=== PATIENT | female | born 1935 | race Caucasian/White ===

== ENCOUNTER → 2016-04-25 | Outpatient (CLI) | payer MEDICARE ==
--- NOTE | 2016-04-25 09:38 | US ---
EXAMINATION TYPE: US abdomen complete DATE OF EXAM: 04/25/2016 9:22 AM COMPARISON: NONE CLINICAL HISTORY: R19.7 DIARRHEA,R10.84 ABD.PAIN,R74.8 ABN LEVELS OF ENZY. EXAM MEASUREMENTS: Liver Length: 17.1 cm Gallbladder Wall: Surgically absent cm CBD: 0.6 cm Spleen: 9.0 cm Right Kidney: 9.9 x 4.0 x 4.2 cm Left Kidney: 9.6 x 5.4 x 4.6 cm There is no ascites. Pancreas: not well visualized due to midline bowel gas Liver: Increased attenuation, echogenic as compared to kidney. Heterogeneous , coarse echotexture Gallbladder: Surgically absent CBD: wnl Spleen: wnl Right Kidney: No hydronephrosis or masses seen Left Kidney: No hydronephrosis or masses seen Upper IVC: wnl Abd Aorta: wnl IMPRESSION: There may be fatty infiltration of the liver versus hepatocellular disease. Postop change s. Limited exam as described.
== END | disposition home or self-care (01) ==
LOC: RADUSWWP 08:59
PROVIDERS: ATTEND Family Medicine
DX: R10.84 Generalized abdominal pain (principal); R19.7 Diarrhea, unspecified; R74.8 Abnormal levels of other serum enzymes; Z98.890 Other specified postprocedural states
CPT/HCPCS: 76700

== ENCOUNTER → 2018-11-12 | Outpatient (CLI) | payer MEDICARE ==
--- NOTE | 2018-11-13 07:55 | US ---
EXAMINATION TYPE: US carotid duplex BILAT DATE OF EXAM: 11/12/2018 COMPARISON: NONE CLINICAL HISTORY: R01.1 Cardiac murmur; R42 dizziness;R53.83 Fatigue. HTN, dizzy EXAM MEASUREMENTS: RIGHT: Peak Systolic Velocity (PSV) cm/sec ----- Right CCA: 90.4 ----- Right ICA: 99.6 ----- Right ECA: 89.3 ICA/CCA ratio: 1.1 RIGHT: End Diastole cm/sec ----- Right CCA: 16.0 ----- Right ICA: 25.8 ----- Right ECA: 0.0 LEFT: Peak Systolic Velocity (PSV) cm/sec ----- Left CCA: 89.3 ----- Left ICA: 141.8 ----- Left ECA: 68.5 ICA/CCA ratio: 1.6 LEFT: End Diastole cm/sec ----- Left CCA: 15.4 ----- Left ICA: 33.3 ----- Left ECA: 0.0 VERTEBRALS (direction of flow): Right Vertebral: Antegrade Left Vertebral: Antegrade Rhythm: Normal Left elevated distal ICA velocity. No significant stenosis. Plaque seen in bilateral bulbs. Slight bilateral wall thickening. IMPRESSION: 1. Bilateral atherosclerotic plaque with no significant hemodynamic stenosis bilaterally. Criteria for Assigning % of Stenosis / Diameter reduction (Estimation based on the indirect measurements of the internal carotid artery velocities (ICA PSV). 1. Normal (no stenosis)=ICA PSV < 125 cm/s: ratio < 2.0: ICA EDV<40 cm/s. 2. Less than 50% stenosis=ICA PSV < 125 cm/s: ratio < 2.0: ICA EDV<40 cm/s. 3. 50 to 69% stenosis=ICA PSV of 125 to 230 cm/s: ration 2.0 ? 4.0: ICA EDV 40-100 cm/s. 4. Greater than 70% stenosis to near occlusion= ICA PSV > 230 cm/s: ratio > 4.0: ICA EDV > 100 cm/s. 5. Near occlusion= ICA PSV velocities may be low or undetectable: variable ratio and ICA EDV. 6. Total occlusion=unable to detect flow.
--- NOTE | 2018-11-13 13:01 | ECHOF ---
Referral Reason:R01.1 Cardiac murmur; R42 dizziness;R53.83 Fatigue MEASUREMENTS -------- HEIGHT: 157.5 cm WEIGHT: 72.6 kg BP: RVIDd: 2.3 cm (< 3.3) IVSd: 0.8 cm (0.6 - 1.1) LVIDd: 3.3 cm (3.9 - 5.3) LVPWd: 0.9 cm (0.6 - 1.1) IVSs: 1.2 cm LVIDs: 2.0 cm LVPWs: 1.5 cm LAESV Index (A-L): 21.68 ml/m Ao Diam: 2.5 cm (2.0 - 3.7) AV Cusp: 1.0 cm (1.5 - 2.6) LA Diam: 3.0 cm (2.7 - 3.8) MV EXCURSION: 16.312 mm (> 18.000) MV EF SLOPE: 120 mm/s (70 - 150) EPSS: 2.4 cm MV E Sushant: 0.85 m/s MV DecT: 299 ms MV A Sushant: 0.93 m/s MV E/A Ratio: 0.92 AV maxP.04 mmHg AV meanP.81 mmHg RAP: 5.00 mmHg RVSP: 25.06 mmHg TAPSE: 26.38 mm FINDINGS -------- Sinus rhythm. This was a technically good study. The left ventricular size is normal. Left ventricular wall thickness is normal. Overall left vent ricular systolic function is normal with, an EF between 55 - 60 %. The right ventricle is normal in size. The left atrial size is normal. Normal LA size by volume 22+/-6 ml/m2. The right atrial size is normal. Aortic valve is trileaflet and is moderately thickened. There is moderate aortic stenosis present. Peak/mean gradient across the Aortic Valve is 44.04mmHg / 25.81mmHg. The mitral valve is normal. The mitral valve leaflets are mildly thickened. Mild mitral regurgita tion is present. The tricuspid valve appears structurally normal. Mild tricuspid regurgitation present. Right vent ricular systolic pressure is normal at < 35 mmHg. There is no pulmonic regurgitation present. The aortic root size is normal. Normal inferior vena cava with normal inspiratory collapse consistent with estimated right atrial pre ssure of 5 mmHg. All pulmonary veins appear normal. The flow patterns, measured by Doppler, appear normal. There is no pericardial effusion. CONCLUSIONS -------- 1. Sinus rhythm. 2. This was a technically good study. 3. The left ventricular size is normal. 4. Left ventricular wall thickness is normal. 5. Overall left ventricular systolic function is normal with, an EF between 55 - 60 %. 6. The right ventricle is normal in size. 7. The left atrial size is normal. 8. Normal LA size by volume 22+/-6 ml/m2. 9. The right atrial size is normal. 10. Aortic valve is trileaflet and is moderately thickened. 11. There is moderate aortic stenosis present. 12. Peak/mean gradient across the Aortic Valve is 44.04mmHg / 25.81mmHg. 13. The mitral valve is normal. 14. The mitral valve leaflets are mildly thickened. 15. Mild mitral regurgitation is present. 16. The tricuspid valve appears structurally normal. 17. Mild tricuspid regurgitation present. 18. Right ventricular systolic pressure is normal at < 35 mmHg. 19. There is no pulmonic regurgitation present. 20. The aortic root size is normal. 21. Normal inferior vena cava with normal inspiratory collapse consistent with estimated right atrial pressure of 5 mmHg. 22. All pulmonary veins appear normal. 23. The flow patterns, measured by Doppler, appear normal. 24. There is no pericardial effusion. MASTER PRINTER: Enedelia Main [facility]
== END | disposition home or self-care (01) ==
LOC: RADECHMAIN 14:43
PROVIDERS: ATTEND Family Medicine
DX: I65.23 Occlusion and stenosis of bilateral carotid arteries (principal); I08.3 Combined rheumatic disorders of mitral, aortic and tricuspid valves; I10 Essential (primary) hypertension; E78.2 Mixed hyperlipidemia; E11.65 Type 2 diabetes mellitus with hyperglycemia
CPT/HCPCS: 93306; 93880

== ENCOUNTER → 2021-05-05 | Outpatient (CLI) | payer MEDICARE ==
--- NOTE | 2021-05-05 11:31 | XR ---
EXAMINATION TYPE: XR chest 2V DATE OF EXAM: 05/05/2021 COMPARISON: X-ray dated 07/23/2011 HISTORY: 85-year-old female, shortness of breath for 3 months TECHNIQUE: Frontal and lateral views of the chest are obtained. FINDINGS: Hyper translucent lungs with flattened and increased AP dimension of the thoracic cage, suggestive of COPD, please correlate with pulmonary function tests. Grossly unremarkable lungs otherwise. No sizab le pleural effusion or definite pneumothorax. No gross cardiomegaly. Aortic atherosclerotic calcifications. Right upper abdominal surgical clips. D egenerative changes of the lower cervical spine. Exaggerated dorsal kyphosis with osteopenia. Anterio r wedging of T7 vertebral body, possibly chronic, please correlate clinically. IMPRESSION: Suspected COPD changes as described above, please correlate clinically and with pulmonary function te sts. Other incidental findings as described above.
== END | disposition home or self-care (01) ==
LOC: RADXRYALE 11:03
PROVIDERS: ATTEND Physician Assistant
DX: R06.02 Shortness of breath (principal)
CPT/HCPCS: 71046

== ENCOUNTER 2021-06-08 12:53 | Inpatient (IN) | payer MEDICARE ==
[2021-06-08 13:37] LABS: Basophils % (A) 0 %; Eosinophils % (A) 0 %; HCT 31.8 % (34.0-46.0); HGB 10.8 gm/dL (11.4-16.0); Lymphocytes # (A) 0.8 k/uL (1.0-4.8); Lymphocytes % (A) 7 %; MCH 32.9 pg (25.0-35.0); MCHC 34.1 g/dL (31.0-37.0); MCV 96.6 fL (80.0-100.0); Mean Platelet Volume 8.4; Monocytes % (A) 9 %; Neutrophils # (A) 8.9 k/uL (1.3-7.7); Neutrophils % (A) 82 %; Platelet Count 192 k/uL (150-450); RBC 3.29 m/uL (3.80-5.40); RDW 13.6 % (11.5-15.5); WBC 10.9 k/uL (3.8-10.6)
[2021-06-08 13:58] LABS: Calcium 8.8 mg/dL (8.4-10.2)
[2021-06-08 14:16] LABS: Potassium 4.3 mmol/L (3.5-5.1)
[2021-06-08 14:17] LABS: Albumin 3.9 g/dL (3.5-5.0); Total Bilirubin 1.9 mg/dL (0.2-1.3); Total Protein 6.9 g/dL (6.3-8.2)
[2021-06-08] MEDS ORDERED: SODIUM CHLORIDE 0.9% 500 ML 500 ML IV ONE (20:50)
--- NOTE | 2021-06-08 21:09 | XR ---
EXAMINATION TYPE: XR Hip RT and AP Pelvis DATE OF EXAM: 06/08/2021 COMPARISON: 07/24/2011 HISTORY: Fall. Pain TECHNIQUE: 3 views FINDINGS: There is right hip prosthesis. There is fractures of the right superior and inferior pubic rami. There is displacement up to 7 mm. The proximal left femur and hip joint are intact. No obvious sacral fracture. IMPRESSION: Acute right pubic rami displaced fractures.
--- NOTE | 2021-06-08 21:11 | XR ---
EXAMINATION TYPE: XR chest 1V DATE OF EXAM: 06/08/2021 COMPARISON: 05/05/2021 HISTORY: Weakness and fall TECHNIQUE: FINDINGS: Heart is normal. Lungs are clear of infiltrate. No heart failure. There are no hilar masses . Bony thorax is intact. No pneumothorax. IMPRESSION: No active cardiopulmonary disease. No change.
--- NOTE | 2021-06-08 21:25 | CT ---
EXAMINATION TYPE: CT brain frantz wo con DATE OF EXAM: 06/08/2021 COMPARISON: None HISTORY: fall CT DLP: 1312.3 mGycm Automated exposure control for dose reduction was used. Images of the brain and cervical spine obtained without contrast. There is cerebral cortical atrophy. There is no mass effect nor midline shift. There is no sign of in tracranial hemorrhage. The calvarium is intact. Skull base is intact. There is normal aeration of the mastoid sinuses. The cervical vertebra have normal alignment. There is degenerative disc space narrowing at C5-6 and C 6-7 with moderate spur formation. There is also spurring at the 3 4. Hypertrophic multilevel facet ar thropathy. IMPRESSION: Cerebral atrophy. No acute intracranial abnormality. Moderate multilevel cervical spondylotic changes. No fracture seen.
[2021-06-08] MEDS: SODIUM CHLORIDE 0.9% 1,000 ML IV SCH (21:48)
--- NOTE | 2021-06-08 22:09 | ED ---
Fall HPI - General Chief Complaint: Fall Stated Complaint: Fall, Hyperglycemia Time Seen by Provider: 06/08/21 20:33 Source: patient Mode of arrival: ambulatory - History of Present Illness Initial Comments: Patient is a 86-year-old female presenting for evaluation after a fall. Patient states that she fell yesterday at home, was found on the floor at home by her friends this evening. She lives alone. When asked how she fell the patient states that she must have lost her balance as she typically needs to hold onto anything that is close when walking. She denies any use of blood thinners, loss of consciousness, head injury. She denies feelings of chest pain, shortness of breath, lightheadedness prior to falling. Patient seems somewhat confused, her friend at bedside says that this is consistent with her baseline mental status. She denies any chest pain, shortness of breath, lightheadedness, fever, chills, nausea, vomiting, abdominal pain, palpitations, headache, neck pain, vision or hearing changes, dysuria, hematuria. - Related Data Home Medications Medication Instructions Recorded Confirmed Aspirin EC [Ecotrin Low Dose] 81 mg PO DAILY 06/08/21 06/08/21 Atorvastatin Calcium [Lipitor] 80 mg PO DAILY 06/08/21 06/08/21 Calcium Carbonate/Vitamin D3 1 tab PO DAILY 06/08/21 06/08/21 [Calcium 500-Vit D3 15 Mcg (600 Iu)] Cholecalciferol [Vitamin D3 (25 25 mcg PO DAILY 06/08/21 06/08/21 Mcg = 1000 Iu)] DULoxetine HCL [Cymbalta] 30 mg PO DAILY 06/08/21 06/08/21 Diphenoxylate HCl/Atropine 1 tab PO TID PRN 06/08/21 06/08/21 [Lomotil 2.5-0.025 mg Tablet] Fluticasone Nasal [place] [Flonase 1 spray EA NOSTRIL DAILY 06/08/21 06/08/21 Nasal [place]] Levothyroxine Sodium [Synthroid] 50 mcg PO DAILY 06/08/21 06/08/21 Lisinopril-Hctz 20-25 mg 1 tab PO DAILY 06/08/21 06/08/21 [Zestoretic 20-25] Metoprolol Tartrate [Lopressor] 50 mg PO BID 06/08/21 06/08/21 Multivitamins, Thera [Multivitamin 1 tab PO DAILY 06/08/21 06/08/21 (formulary)] [place]-3 Fatty Acids/Fish Oil [Fish 4 cap PO DAILY 06/08/21 06/08/21 Oil 1,000 mg Softgel] Omeprazole Magnesium [PriLOSEC OTC] 20 mg PO DAILY 06/08/21 06/08/21 Pioglitazone [Actos] 45 mg PO DAILY 06/08/21 06/08/21 Raloxifene HCl 60 mg PO DAILY 06/08/21 06/08/21 glipiZIDE [Glucotrol] 10 mg PO BID 06/08/21 06/08/21 Allergies Allergy/AdvReac Type Severity Reaction Status Date / Time No Known Allergies Allergy Verified 06/08/21 21:29 Review of Systems ROS Statement: Those systems with pertinent positive or pertinent negative responses have been documented in the HPI. ROS Other: All systems not noted in ROS Statement are negative. Past Medical History Past Medical History: Diabetes Mellitus, Hypertension History of Any Multi-Drug Resistant Organisms: None Reported Past Surgical History: No Surgical Hx Reported Past Psychological History: No Psychological Hx Reported Smoking Status: Never smoker Past Alcohol Use History: Daily Past Drug Use History: None Reported General Exam Limitations: no limitations General appearance: alert, in no apparent distress Head exam: Present: atraumatic, normocephalic, normal inspection Eye exam: Present: normal appearance, EOMI Neck exam: Present: normal inspection Respiratory exam: Present: normal lung sounds bilaterally. Absent: respiratory distress, wheezes, rales, rhonchi, stridor Cardiovascular Exam: Present: regular rate, normal rhythm, normal heart sounds. Absent: systolic murmur, diastolic murmur, rubs, gallop, clicks GI/Abdominal exam: Present: soft, normal bowel sounds. Absent: distended, tenderness, guarding, rebound, rigid Neurological exam: Present: alert, altered (Consistent with baseline), CN II-XII intact Psychiatric exam: Present: normal affect, normal mood Skin exam: Present: warm, dry, intact, normal color. Absent: rash Course Vital Signs 06/08/21 06/08/21 13:22 21:00 Temperature 97.7 F Pulse Rate 78 70 Respiratory 20 18 Rate Blood Pressure 97/60 108/61 O2 Sat by Pulse 100 98 Oximetry Medical Decision Making - Medical Decision Making Patient is an 86-year-old female presenting for evaluation post fall. Patient stated that she fell yesterday and her friend found her on the floor at home this evening. Patient states that she must of lost her balance causing her to fall as she normally has to hold onto whatever is closed when walking around the house. She lives alone. She denies any chest pain, shortness of breath, lightheadedness, palpitations. On examination patient states that there is pain to the right hip, there is pain with ambulation. There is normal sensation and distal pulses are palpated bilaterally. Skin is warm, range of motion is intact. No focal neurological deficits. Lab work is remarkable for elevated creatinine kinase at 558. Mild leukocytosis of 10.9. Hyponatremia with sodium of 1:30. Hyperglycemic with glucose of 344. CT of the head and cervical spine without contrast shows no acute intracranial process or fracture. Chest x-rays negative. X-ray of the right hip and pelvis shows acute right pubic rami displaced fractures. As patient lives alone and is unable to ambulate safely, she will need to be admitted. I spoke with orthopedist contract technician Dr. Carbajal who stated that these fractures do not require surgical intervention, and he will follow the patient during her admission. Patient is receiving 500 mL normal saline fluid bolus with maintenance rate of 130 mL per hour. I spoke with Dr. Franklin who agreed to admit the patient. I discussed this plan with the patient and family. The conveyed verbal understanding and agreed to the plan. I discussed this case with my attending Dr. Khan. - Lab Data Result diagrams: 06/08/21 13:29 06/08/21 13:29 Lab Results 06/08/21 06/08/21 06/08/21 Range/Units 13:29 13:29 13:29 WBC 10.9 H (3.8-10.6) k/uL RBC 3.29 L (3.80-5.40) m/uL Hgb 10.8 L (11.4-16.0) gm/dL Hct 31.8 L (34.0-46.0) % MCV 96.6 (80.0-100.0) fL MCH 32.9 (25.0-35.0) pg MCHC 34.1 (31.0-37.0) g/dL RDW 13.6 (11.5-15.5) % Plt Count 192 (150-450) k/uL MPV 8.4 Neutrophils % 82 % Lymphocytes % 7 % Monocytes % 9 % Eosinophils % 0 % Basophils % 0 % Neutrophils # 8.9 H (1.3-7.7) k/uL Lymphocytes # 0.8 L (1.0-4.8) k/uL Monocytes # 1.0 (0-1.0) k/uL Eosinophils # 0.0 (0-0.7) k/uL Basophils # 0.0 (0-0.2) k/uL Sodium 130 L (137-145) mmol/L Potassium 4.3 (3.5-5.1) mmol/L Chloride 96 L (98-107) mmol/L Carbon Dioxide 24 (22-30) mmol/L Anion Gap 10 mmol/L BUN 25 H (7-17) mg/dL Creatinine 0.73 (0.52-1.04) mg/dL Est GFR (CKD-EPI)AfAm 88 (>60 ml/min/1.73 sqM) Est GFR (CKD-EPI)NonAf 76 (>60 ml/min/1.73 sqM) Glucose 344 H (74-99) mg/dL Plasma Lactic Acid Ziyad (0.7-2.0) mmol/L Calcium 8.8 (8.4-10.2) mg/dL Total Bilirubin 1.9 H (0.2-1.3) mg/dL AST 75 H (14-36) U/L ALT 37 H (4-34) U/L Alkaline Phosphatase 70 (38-126) U/L Creatine Kinase (30-135) U/L Troponin I 0.032 (0.000-0.034) ng/mL Total Protein 6.9 (6.3-8.2) g/dL Albumin 3.9 (3.5-5.0) g/dL 06/08/21 06/08/21 Range/Units 13:29 21:33 WBC (3.8-10.6) k/uL RBC (3.80-5.40) m/uL Hgb (11.4-16.0) gm/dL Hct (34.0-46.0) % MCV (80.0-100.0) fL MCH (25.0-35.0) pg MCHC (31.0-37.0) g/dL RDW (11.5-15.5) % Plt Count (150-450) k/uL MPV Neutrophils % % Lymphocytes % % Monocytes % % Eosinophils % % Basophils % % Neutrophils # (1.3-7.7) k/uL Lymphocytes # (1.0-4.8) k/uL Monocytes # (0-1.0) k/uL Eosinophils # (0-0.7) k/uL Basophils # (0-0.2) k/uL Sodium (137-145) mmol/L Potassium (3.5-5.1) mmol/L Chloride (98-107) mmol/L Carbon Dioxide (22-30) mmol/L Anion Gap mmol/L BUN (7-17) mg/dL Creatinine (0.52-1.04) mg/dL Est GFR (CKD-EPI)AfAm (>60 ml/min/1.73 sqM) Est GFR (CKD-EPI)NonAf (>60 ml/min/1.73 sqM) Glucose (74-99) mg/dL Plasma Lactic Acid Ziyad 1.8 (0.7-2.0) mmol/L Calcium (8.4-10.2) mg/dL Total Bilirubin (0.2-1.3) mg/dL AST (14-36) U/L ALT (4-34) U/L Alkaline Phosphatase (38-126) U/L Creatine Kinase 558 H (30-135) U/L Troponin I (0.000-0.034) ng/mL Total Protein (6.3-8.2) g/dL Albumin (3.5-5.0) g/dL - EKG Data EKG Comments: EKG shows sinus rhythm with occasional supraventricular premature complexes. Rate of 72. HI interval 196. QRS duration 86. No acute ST or T-wave changes. Disposition Clinical Impression: Pubic ramus fracture Disposition: ADMITTED IP TO THIS HOSP Condition: Fair Is patient prescribed a controlled substance at d/c from ED?: No Time of Disposition: 23:00 Decision to Admit Reason: Admit from EC Decision Date: 06/08/21 Decision Time: 23:00
[2021-06-08] MEDS ORDERED: IBUPROFEN 400 MG TAB PO PRN (22:14)
[2021-06-08] MEDS ORDERED: NALOXONE 0.4 MG/ML 1 ML VIAL IV PRN (22:14)
--- NOTE | 2021-06-09 01:07 | P.HPIM ---
History of Present Illness H&P Date: 06/09/21 The patient is an 86-year-old female with a PMH of type II DM, hypertension, and hyperlipidemia who presents to the emergency room after a fall. The patient lives by herself reports that on the evening of 06/07, she was emptying her trekking guide when she tripped on something and fell, striking her right hip on the ground. She immediately had severe pain at the site of trauma, and was unable to stand up. She crawled her way to a chair in her living room and sat by it until the following morning when a friend visiting her for her birthday found her on the ground. The patient reports that she was unable to sleep throughout the night. She reports ongoing right hip pain with movement, with no pain at rest. Denied suffering head or any additional trauma. Further denied chest discomfort, shortness of breath, nausea, vomiting, fever, chills, cough, abdominal pain, diarrhea, productive. Denied losing consciousness. CT brain and cervical spine was unremarkable. Chest x-ray was also unremarkable. Hip x- rays revealed acute right pubic rami displaced fractures. The case was reportedly discussed by the ED provider with orthopedics on-call who noted that the patient will be nonsurgical due to the nature of her fractures, and will be managed medically. Laboratory evaluation revealed WBC count of 10.9, hemoglobin 10.8, sodium 130, chloride 96, BUN 25, glucose 344, lactic acid 1.8, AST 75, ALT 37, CK 558, and troponin I 0.032. Review of systems: Pertinent positives and negatives as discussed in HPI, a complete review of systems was performed and all other systems are negative. Physical examination: General: non toxic, no distress, appears at stated age, obese Derm: no unusual rashes/lesions no unusual ecchymoses, warm, dry Head: atraumatic, normocephalic, symmetric Eyes: EOMI, no lid lag, anicteric sclera, pupils equal round reactive to light ENT: Nose and ears atraumatic, no thrush, no pharyngeal erythema Neck: No thyromegaly, no cervical lymphadenopathy, trachea midline, supple Mouth: no lip lesion, mucus membranes moist Cardiovascular: S1S2 reg, no murmur, positive posterior tibial pulse bilateral, no edema, capillary refill less than 2 seconds Lungs: CTA bilateral, no rhonchi, no rales , no accessory muscle use Abdominal: soft, nontender to palpation, no guarding, no appreciable organomegaly, normal bowel sounds Ext: no gross muscle atrophy, muscle strength 5 out of 5 in all extremities grossly except right lower extremity due to right hip pain, right hip passive range of motion limited also due to pain, no contractures, Neuro: CN II-XI grossly intact, light touch intact all 4 extremities, finger to nose within normal limits Psych: Alert, oriented, appropriate affect Assessment/plan Acute displaced pubic rami fractures -Pain control -Orthopedic consults -Strict bedrest -PT consult Leukocytosis, likely secondary to acute stressor -No signs of active infection at this time -Monitor for now Hyponatremia, likely secondary to ongoing pain -Gentle IV fluids -Monitor for now Elevated creatinine kinase -IVFs -Likely due to fall and dehydration -Monitor for now Chronic conditions: Type II DM, hypertension, hyperlipidemia -Continue with home meds -Insulin sliding scale and blood glucose monitoring -Check A1c DVT prophylaxis -Heparin subq The patient is admitted with an anticipated greater than 2 midnight stay for evaluation of hip fractures CODE STATUS: Full Code Discussed with: Patient Anticipated discharge date: 2-[address]: Home Past Medical History Past Medical History: Diabetes Mellitus, Hypertension History of Any Multi-Drug Resistant Organisms: None Reported Past Surgical History: No Surgical Hx Reported Past Psychological History: No Psychological Hx Reported Smoking Status: Never smoker Past Alcohol Use History: Daily Past Drug Use History: None Reported Medications and Allergies Home Medications Medication Instructions Recorded Confirmed Type Aspirin EC [Ecotrin Low Dose] 81 mg PO DAILY 06/08/21 06/08/21 History Atorvastatin Calcium [Lipitor] 80 mg PO DAILY 06/08/21 06/08/21 History Calcium Carbonate/Vitamin D3 1 tab PO DAILY 06/08/21 06/08/21 History [Calcium 500-Vit D3 15 Mcg (600 Iu)] Cholecalciferol [Vitamin D3 (25 25 mcg PO DAILY 06/08/21 06/08/21 History Mcg = 1000 Iu)] DULoxetine HCL [Cymbalta] 30 mg PO DAILY 06/08/21 06/08/21 History Diphenoxylate HCl/Atropine 1 tab PO TID PRN 06/08/21 06/08/21 History [Lomotil 2.5-0.025 mg Tablet] Fluticasone Nasal [place] [Flonase 1 spray EA NOSTRIL DAILY 06/08/21 06/08/21 History Nasal [place]] Levothyroxine Sodium [Synthroid] 50 mcg PO DAILY 06/08/21 06/08/21 History Lisinopril-Hctz 20-25 mg 1 tab PO DAILY 06/08/21 06/08/21 History [Zestoretic 20-25] Metoprolol Tartrate [Lopressor] 50 mg PO BID 06/08/21 06/08/21 History Multivitamins, Thera [Multivitamin 1 tab PO DAILY 06/08/21 06/08/21 History (formulary)] [place]-3 Fatty Acids/Fish Oil [Fish 4 cap PO DAILY 06/08/21 06/08/21 History Oil 1,000 mg Softgel] Omeprazole Magnesium [PriLOSEC OTC] 20 mg PO DAILY 06/08/21 06/08/21 History Pioglitazone [Actos] 45 mg PO DAILY 06/08/21 06/08/21 History Raloxifene HCl 60 mg PO DAILY 06/08/21 06/08/21 History glipiZIDE [Glucotrol] 10 mg PO BID 06/08/21 06/08/21 History Allergies Allergy/AdvReac Type Severity Reaction Status Date / Time No Known Allergies Allergy Verified 06/08/21 21:29 Physical Exam Vitals: Vital Signs Temp Pulse Resp BP Pulse Ox 06/08/21 21:00 70 18 108/61 98 06/08/21 13:22 97.7 F 78 20 97/60 100 Intake and Output 06/08/21 06/08/21 06/09/21 14:59 22:59 06:59 Other: Weight 154 kg Results CBC & Chem 7: 06/08/21 13:29 06/08/21 13:29 Labs: Abnormal Lab Results - Last 24 Hours (Table) 06/08/21 06/08/21 06/08/21 Range/Units 13:29 13:29 13:29 WBC 10.9 H (3.8-10.6) k/uL RBC 3.29 L (3.80-5.40) m/uL Hgb 10.8 L (11.4-16.0) gm/dL Hct 31.8 L (34.0-46.0) % Neutrophils # 8.9 H (1.3-7.7) k/uL Lymphocytes # 0.8 L (1.0-4.8) k/uL Sodium 130 L (137-145) mmol/L Chloride 96 L (98-107) mmol/L BUN 25 H (7-17) mg/dL Glucose 344 H (74-99) mg/dL Total Bilirubin 1.9 H (0.2-1.3) mg/dL AST 75 H (14-36) U/L ALT 37 H (4-34) U/L Creatine Kinase 558 H (30-135) U/L
[2021-06-09 06:30] LABS: Glucose,Whole Blood 235 mg/dL (75-99)
[2021-06-09 08:18] LABS: Appearance,Urine Cloudy (Clear); Bacteria,Urine Many /hpf; Bilirubin,Urine Negative (Negative); Blood,Urine Moderate (Negative); Color,Urine Yellow; Glucose,Urine (UA) Negative (Negative); Ketones,Urine Negative (Negative); Leukocyte Esterase,Urine Large (Negative); Mucus,Urine Rare /hpf; Nitrite,Urine Negative (Negative); PH, Urine 5.5 (5.0-8.0); Protein,Urine 1+ (Negative); RBC,Urine 16 /hpf (0-5); Specific Gravity,Urine 1.014 (1.001-1.035); Squamous Epithelial Cell,Urine 1 /hpf (0-4); Urobilinogen,Urine <2.0 mg/dL (<2.0); WBC,Urine 163 /hpf (0-5)
[2021-06-09 08:30] LABS: Glucose,Whole Blood 234 mg/dL (75-99)
[2021-06-09] MEDS: ACETAMINOPHEN TAB 325 MG TAB PO PRN (08:43)
[2021-06-09] MEDS: METOPROLOL TARTRATE 50 MG TAB PO SCH (08:43)
[2021-06-09] MEDS: MULTIVITAMINS, THERA 1 EACH TAB PO SCH (08:43)
[2021-06-09] MEDS: PANTOPRAZOLE 40 MG TABLET PO SCH (08:43)
[2021-06-09] MEDS: HEPARIN SODIUM,PORCINE/PF 5,000 UNIT/0.5 ML SYRINGE SQ SCH ×2 (08:44→16:35)
[2021-06-09] MEDS: LEVOTHYROXINE 50 MCG TAB PO SCH (08:44)
[2021-06-09] MEDS: INSULIN ASPART (NovoLOG) 100 UNIT/ML VIAL SQ SCH ×3 (08:44→17:14)
[2021-06-09] MEDS: ASPIRIN 81 MG PO SCH (08:44)
[2021-06-09] MEDS: ATORVASTATIN 80 MG TAB PO SCH (08:44)
[2021-06-09] MEDS: SODIUM CHLORIDE 0.9% 1,000 ML IV SCH ×2 (08:45→12:25)
[2021-06-09 08:51] LABS: Basophils % (A) 0 %; Eosinophils % (A) 0 %; HCT 32.3 % (34.0-46.0); HGB 10.8 gm/dL (11.4-16.0); Lymphocytes # (A) 1.8 k/uL (1.0-4.8); Lymphocytes % (A) 15 %; MCHC 33.6 g/dL (31.0-37.0); MCV 98.3 fL (80.0-100.0); Mean Platelet Volume 7.7; Monocytes # (A) 0.9 k/uL (0-1.0); Monocytes % (A) 7 %; Neutrophils # (A) 9.2 k/uL (1.3-7.7); Neutrophils % (A) 75 %; Platelet Count 225 k/uL (150-450); RBC 3.28 m/uL (3.80-5.40); RDW 13.2 % (11.5-15.5); WBC 12.2 k/uL (3.8-10.6)
[2021-06-09 09:03] LABS: Albumin 3.7 g/dL (3.5-5.0); Calcium 9.1 mg/dL (8.4-10.2); Potassium 3.9 mmol/L (3.5-5.1); Total Bilirubin 1.2 mg/dL (0.2-1.3); Total Protein 6.4 g/dL (6.3-8.2)
[2021-06-09] MEDS: RALOXIFENE 60 MG TAB PO SCH (10:12)
[2021-06-09] MEDS: DULoxetine HCL 30 MG CAPSULE.DR PO SCH (10:12)
[2021-06-09] MEDS: LISINOPRIL-HCTZ 20-25 MG 1 EACH TAB PO SCH (10:12)
[2021-06-09 11:38] LABS: Glucose,Whole Blood 251 mg/dL (75-99)
--- NOTE | 2021-06-09 13:02 | P.CNOR ---
History of Present Illness - [facility] Consult date: 06/09/21 Requesting physician: Boyd Rae Consult reason: fracture (Right superior and inferior displaced pubic rami fr actures status post fall) History of present illness: Patient is a very pleasant 86-year-old female who is seen and examined at the bedside for further evaluation of her pelvis. She sustained a fall on 06/07/2021 in her home. She was unable to ambulate following her fall. She sat in her house on the floor beside the couch until a friend came to see her on her birthday yesterday, 06/08/2019. She was brought to the emergency room for further evaluation. She was found to have right superior and inferior displaced pubic rami fractures. Since her admission to the hospital she states her pain is controlled well at rest. Her pain is significantly exacerbated with trying to weight-bear on the right lower extremity. She denies any other injuries at the time of the fall. X-ray imaging showed evidence of her pubic rami fractures. CT of the brain and cervical spine was performed which does show significant degenerative changes at her cervical spine. She is not currently complaining of any cervical pain. Patient is currently receiving motion or Tyl enol for pain control. It has been discussed with the patient about possible discharged to a rehabilitation facility time of discharge. Patient is willing to go to a rehabilitation facility at discharge. She continues to be seeing them by medicine for her multiple other medical diagnoses including leukocytosis, hyponatremia, elevated creatinine kinase, type 2 diabetes, hypertension, and hyperlipidemia. She has evidence of a right hip hemiarthroplasty and history of surgical intervention in her left knee. Past Medical History Past Medical History: Diabetes Mellitus, Hypertension, Thyroid Disorder Additional Past Medical History / Comment(s): POOR HISTORIAN History of Any Multi-Drug Resistant Organisms: None Reported Past Surgical History: Cholecystectomy, Orthopedic Surgery Additional Past Surgical History / Comment(s): POOR HISTORIAN Past Anesthesia/Blood Transfusion Reactions: No Reported Reaction Past Psychological History: No Psychological Hx Reported Smoking Status: Never smoker Past Alcohol Use History: Daily Past Drug Use History: None Reported Medications and Allergies Home Medications Medication Instructions Recorded Confirmed Type Aspirin EC [Ecotrin Low Dose] 81 mg PO DAILY 06/08/21 06/08/21 History Atorvastatin Calcium [Lipitor] 80 mg PO DAILY 06/08/21 06/08/21 History Calcium Carbonate/Vitamin D3 1 tab PO DAILY 06/08/21 06/08/21 History [Calcium 500-Vit D3 15 Mcg (600 Iu)] Cholecalciferol [Vitamin D3 (25 25 mcg PO DAILY 06/08/21 06/08/21 History Mcg = 1000 Iu)] DULoxetine HCL [Cymbalta] 30 mg PO DAILY 06/08/21 06/08/21 History Diphenoxylate HCl/Atropine 1 tab PO TID PRN 06/08/21 06/08/21 History [Lomotil 2.5-0.025 mg Tablet] Fluticasone Nasal Delta [Flonase 1 spray EA NOSTRIL DAILY 06/08/21 06/08/21 History Nasal Delta] Levothyroxine Sodium [Synthroid] 50 mcg PO DAILY 06/08/21 06/08/21 History Lisinopril-Hctz 20-25 mg 1 tab PO DAILY 06/08/21 06/08/21 History [Zestoretic 20-25] Metoprolol Tartrate [Lopressor] 50 mg PO BID 06/08/21 06/08/21 History Multivitamins, Thera [Multivitamin 1 tab PO DAILY 06/08/21 06/08/21 History (formulary)] [place]-3 Fatty Acids/Fish Oil [Fish 4 cap PO DAILY 06/08/21 06/08/21 History Oil 1,000 mg Softgel] Omeprazole Magnesium [PriLOSEC OTC] 20 mg PO DAILY 06/08/21 06/08/21 History Pioglitazone [Actos] 45 mg PO DAILY 06/08/21 06/08/21 History Raloxifene HCl 60 mg PO DAILY 06/08/21 06/08/21 History glipiZIDE [Glucotrol] 10 mg PO BID 06/08/21 06/08/21 History Allergies Allergy/AdvReac Type Severity Reaction Status Date / Time No Known Allergies Allergy Verified 06/08/21 21:29 Physical Examination Physical exam: Patient is awake, alert, and oriented 3 Vital signs stable Adequate chest excursion with deep inspiration and expiration Dorsiflexion, plantarflexion, and extensor hallucis longus positive sustained bilaterally Lower extremity strength 5/5 bilaterally Patellar reflex 1+ bilaterally and Achilles reflexes 0+ bilaterally Evidence of significant bruising towards her right hip and buttock Evidence of a well-healed incision over the left knee No lower extremity hyperreflexia bilaterally Patient has difficulty lifting her legs off the bed independently bilaterally No signs or symptoms of DVT; no calf pain No pain with internal and external rotation of the hips bilaterally Some increased pain with pelvic rocking Results Pertinent studies: X-ray of the right hip and pelvis taken on 06/08/2021: Evidence of acute right pubic superior and inferior pubic rami displaced fracture; evidence of a right hip hemiarthroplasty which appears in good alignment and position CT of the cervical spine and brain taken on 06/08/2021: C5-6 and C6-7 significant degenerative disc disease; multilevel cervical spondylosis; no marek dence of cervical compression fracture Cerebral atrophy; no acute intracranial abnormality - Labs Labs: Abnormal Lab Results - Last 24 Hours (Table) 06/08/21 06/08/21 06/08/21 Range/Units 13:29 13:29 13:29 WBC 10.9 H (3.8-10.6) k/uL RBC 3.29 L (3.80-5.40) m/uL Hgb 10.8 L (11.4-16.0) gm/dL Hct 31.8 L (34.0-46.0) % Neutrophils # 8.9 H (1.3-7.7) k/uL Lymphocytes # 0.8 L (1.0-4.8) k/uL Sodium 130 L (137-145) mmol/L Chloride 96 L (98-107) mmol/L BUN 25 H (7-17) mg/dL Glucose 344 H (74-99) mg/dL POC Glucose (mg/dL) (75-99) mg/dL Total Bilirubin 1.9 H (0.2-1.3) mg/dL AST 75 H (14-36) U/L ALT 37 H (4-34) U/L Creatine Kinase 558 H (30-135) U/L Urine Appearance (Clear) Urine Protein (Negative) Urine Blood (Negative) Ur Leukocyte Esterase (Negative) Urine RBC (0-5) /hpf Urine WBC (0-5) /hpf Urine Bacteria (None) /hpf Urine Mucus (None) /hpf 06/09/21 06/09/21 06/09/21 Range/Units 06:29 07:43 07:43 WBC 12.2 H (3.8-10.6) k/uL RBC 3.28 L (3.80-5.40) m/uL Hgb 10.8 L (11.4-16.0) gm/dL Hct 32.3 L (34.0-46.0) % Neutrophils # 9.2 H (1.3-7.7) k/uL Lymphocytes # (1.0-4.8) k/uL Sodium 132 L (137-145) mmol/L Chloride (98-107) mmol/L BUN 25 H (7-17) mg/dL Glucose 238 H (74-99) mg/dL POC Glucose (mg/dL) 235 H (75-99) mg/dL Total Bilirubin (0.2-1.3) mg/dL AST 57 H (14-36) U/L ALT 35 H (4-34) U/L Creatine Kinase (30-135) U/L Urine Appearance (Clear) Urine Protein (Negative) Urine Blood (Negative) Ur Leukocyte Esterase (Negative) Urine RBC (0-5) /hpf Urine WBC (0-5) /hpf Urine Bacteria (None) /hpf Urine Mucus (None) /hpf 06/09/21 06/09/21 06/09/21 Range/Units 07:43 08:00 08:29 WBC (3.8-10.6) k/uL RBC (3.80-5.40) m/uL Hgb (11.4-16.0) gm/dL Hct (34.0-46.0) % Neutrophils # (1.3-7.7) k/uL Lymphocytes # (1.0-4.8) k/uL Sodium (137-145) mmol/L Chloride (98-107) mmol/L BUN (7-17) mg/dL Glucose (74-99) mg/dL POC Glucose (mg/dL) 234 H (75-99) mg/dL Total Bilirubin (0.2-1.3) mg/dL AST (14-36) U/L ALT (4-34) U/L Creatine Kinase 547 H (30-135) U/L Urine Appearance Cloudy H (Clear) Urine Protein 1+ H (Negative) Urine Blood Moderate H (Negative) Ur Leukocyte Esterase Large H (Negative) Urine RBC 16 H (0-5) /hpf Urine WBC 163 H (0-5) /hpf Urine Bacteria Many H (None) /hpf Urine Mucus Rare H (None) /hpf 06/09/21 Range/Units 11:36 WBC (3.8-10.6) k/uL RBC (3.80-5.40) m/uL Hgb (11.4-16.0) gm/dL Hct (34.0-46.0) % Neutrophils # (1.3-7.7) k/uL Lymphocytes # (1.0-4.8) k/uL Sodium (137-145) mmol/L Chloride (98-107) mmol/L BUN (7-17) mg/dL Glucose (74-99) mg/dL POC Glucose (mg/dL) 251 H (75-99) mg/dL Total Bilirubin (0.2-1.3) mg/dL AST (14-36) U/L ALT (4-34) U/L Creatine Kinase (30-135) U/L Urine Appearance (Clear) Urine Protein (Negative) Urine Blood (Negative) Ur Leukocyte Esterase (Negative) Urine RBC (0-5) /hpf Urine WBC (0-5) /hpf Urine Bacteria (None) /hpf Urine Mucus (None) /hpf H & H 06/08/21 06/09/21 Range/Units 13:29 07:43 Hgb 10.8 L 10.8 L (11.4-16.0) gm/dL Hct 31.8 L 32.3 L (34.0-46.0) % Result Diagrams: 06/09/21 07:43 06/09/21 07:43 Assessment and Plan Assessment: Assessment: Acute traumatic right superior and inferior displaced pubic rami fractures Acute pelvic pain Status post fall Inability to ambulate on the right lower extremity due to pain and right pubic rami fractures History of right hip hemiarthroplasty History surgical intervention left knee Leukocytosis Hyponatremia Elevated creatinine kinase Type 2 diabetes Hypertension Hyperlipidemia Obesity (1) Fracture of superior ramus of right pubis Current Visit: Yes Status: Acute Code(s): S32.511A - FRACTURE OF SUPERIOR RIM OF RIGHT PUBIS, INIT FOR CLOS FX SNOMED Code(s): 925813163 (2) Fracture of right inferior pubic ramus Current Visit: Yes Status: Acute Code(s): S32.591A - OTH FRACTURE OF RIGHT PUBIS, INIT ENCNTR FOR CLOSED FRACTURE SNOMED Code(s): 465217465 (3) Status post fall Current Visit: Yes Status: Acute Code(s): Z91.81 - HISTORY OF FALLING SNOMED Code(s): 398373610 (4) Pelvic pain Current Visit: Yes Status: Acute Code(s): R10.2 - PELVIC AND PERINEAL PAIN SNOMED Code(s): 71974557 (5) History of right hip hemiarthroplasty Current Visit: Yes Status: Acute Code(s): Z96.641 - PRESENCE OF RIGHT ARTIFICIAL HIP JOINT SNOMED Code(s): 120273839 (6) Leukocytosis Current Visit: Yes Status: Acute Code(s): D72.829 - ELEVATED WHITE BLOOD CELL COUNT, UNSPECIFIED SNOMED Code(s): 018074742 (7) Hyponatremia Current Visit: Yes Status: Acute Code(s): E87.1 - HYPO-OSMOLALITY AND HYPONATREMIA SNOMED Code(s): 62414289 (8) Elevated creatine kinase Current Visit: Yes Status: Acute Code(s): R74.8 - ABNORMAL LEVELS OF OTHER SERUM ENZYMES SNOMED Code(s): 308393757 (9) Type 2 diabetes mellitus Current Visit: Yes Status: Acute Code(s): E11.9 - TYPE 2 DIABETES MELLITUS WITHOUT COMPLICATIONS SNOMED Code(s): 29298306 (10) Hypertension Current Visit: Yes Status: Acute Code(s): I10 - ESSENTIAL (PRIMARY) HYPERTENSION SNOMED Code(s): 17420898 (11) Hyperlipidemia Current Visit: Yes Status: Acute Code(s): E78.5 - HYPERLIPIDEMIA, UNSPECIFIED SNOMED Code(s): 07081111 (12) Obesity Current Visit: Yes Status: Acute Code(s): E66.9 - OBESITY, UNSPECIFIED SNOMED Code(s): 847501024 Plan: Plan: 1. Patient has been discussed in detail with Dr. Reynaldo Hair and we have reviewed her imaging. After physical examination of the patient, reviewing i maging, and further discussion with the patient, we will currently planned to have the patient work to conservative treatment options. She does have evidence of right superior and inferior pubic rami fractures with displacement status post fall. She has had difficulty with mobilization and ambulation right lower extremity due to her pain and fractures. Her pain has been controlled while resting in bed. We did discuss at this time we would not plan for acute surgical intervention and are not currently planning for any surgery in the outpatient setting in regards to her right pubic rami fractures. We did discuss the fractures could heal with conservative treatment and time. We did discuss she will be toe-touch weightbearing on the right lower extremity. She may utilize a walker to aid in ambulation as needed. She should avoid excessive activities with the right lower extremity. Currently her pain has been adequately controlled with Motrin and Tylenol. She may continue his medications as prescribed as needed for pain control. We did discuss she could benefit from discharge to rehabilitation facility at the time of discharge was cleared by medicine. Patient does feel this is a good plan of care. At this time, patient will be cleared for discharge from an orthopedic standpoint. Patient may follow-up with Adolfo Juarez PA-C or Dr. Reynaldo Hair at [facility] in 2-3 weeks following discharge. 2. Patient will continue be seen and examined by medicine for her multiple other medical diagnose Time with Patient: Greater than 30 (Including obtaining history, physical examination, reviewing of imaging, and dictation.)
--- NOTE | 2021-06-09 16:18 | P.PN ---
Subjective Progress Note Date: 06/09/21 Hospital course: Patient is a very pleasant 86-year-old female with a past medical history of hypertension, hyperlipidemia, hypothyroidism, and sen-ysshykt-[id number] diabetes mellitus type 2. She presented to the emergency department status post fall. 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 Patient reports severe pain upon impact and inability to get herself off of the floor. Patient reports she remained on the floor overnight until her friend came by to celebrate her birthday with her following morning. In the emergency department patient underwent full evaluation. CT head and cervical spine completed negative for acute process. Chest x-ray unremarkable. X-ray right hip revealed acute fractures of the right superior and inferior pubic rami with displacement up to 7 mm. Patient was admitted under our services with consultation to orthopedic surgery. Physical exam: Patient seen and fully evaluated at the bedside this morning. Patient reports continued pain to right hip, but states it is controlled as long as she does not move. Patient also noted to have a UTI and started on IV antibiotics Rocephin. She denies having any headache, lightheadedness, dizziness, chest pain, palpitations, shortness of breath, or experiencing any numbness/tingling/weakness in her extremities. Movement and sensitivity remain intact to right lower extremity. Awaiting orthopedic surgery to evaluate and further recommendations. Vital signs reviewed and stable. General: Nontoxic, no distress and appears stated age. Derm: Skin warm and dry, normal coloration for ethnicity. Moderate bruising right lateral thigh and hip Head: Atraumatic, normocephalic and symmetric. Eyes: EOMs intact, no lid lag, and anicteric sclera Mouth: no lip lesions, mucus membranes moist Cardiovascular: regular rate and rhythm with normal S1S2, no murmur, positive posterior tibial pulses bilaterally, and cap refill < 2 seconds. Lungs: Respirations even, regular, and unlabored on room air. Lungs CTA bilaterally, no rhonchi, no rales, no wheezing, and no accessory muscle usage. Abdominal: soft, nontender to palpation, no guarding, no appreciable organomegaly Ext: ROM intact. No gross muscle atrophy, no edema, no contractures Neuro: Speech clear, face symmetrical and CN II-XII grossly intact with no noted focal neuro deficits Psych: Alert and oriented to person, place, time, and situation. Appropriate and pleasant affect. Assessment and Plan of Care: Acute displaced superior and inferior pubic rami fractures -Symptomatic care and Pain control -Orthopedic consults -Strict bedrest pending further evaluation by orthopedic surgery -PT consult UTI with leukocytosis -Rocephin -Follow up on urine culture -Monitor I's and O's -Bladder management Hyponatremia, likely secondary to ongoing pain -Gentle IV fluids -Monitor for now Elevated creatinine kinase -IVFs -Likely due to fall with prolonged down time and dehydration -Monitor for now Chronic conditions: Type II DM, hypertension, hyperlipidemia -Continue with home meds -Insulin sliding scale and blood glucose monitoring -Check A1c CODE STATUS: Full Code DVT prophylaxis: Heparin Discussed with: Patient and RN Anticipated discharge date: Clinical course to determine Anticipated discharge place: Home vs SNF as this patient lives alone A total of 38 minutes was spent on the care of this complex patient more than 50% of the time was spent in counseling and care coordination. I reviewed the documentation as provided by the REMIGIO above, who is the original author of this note. I agree with the documented assessment and plan, with the following changes: None Objective - Vital Signs Vital signs: Vital Signs Temp 98.1 F 06/09/21 06:07 Pulse 101 H 06/09/21 06:07 Resp 18 06/09/21 06:07 BP 142/57 06/09/21 06:07 Pulse Ox 100 06/09/21 06:07 Intake & Output 06/08/21 06/09/21 06/09/21 18:59 06:59 18:59 Weight 154 kg - Labs CBC & Chem 7: 06/09/21 07:43 06/09/21 07:43 Labs: Abnormal Lab Results - Last 24 Hours (Table) 06/08/21 06/08/21 06/08/21 Range/Units 13:29 13:29 13:29 WBC 10.9 H (3.8-10.6) k/uL RBC 3.29 L (3.80-5.40) m/uL Hgb 10.8 L (11.4-16.0) gm/dL Hct 31.8 L (34.0-46.0) % Neutrophils # 8.9 H (1.3-7.7) k/uL Lymphocytes # 0.8 L (1.0-4.8) k/uL Sodium 130 L (137-145) mmol/L Chloride 96 L (98-107) mmol/L BUN 25 H (7-17) mg/dL Glucose 344 H (74-99) mg/dL POC Glucose (mg/dL) (75-99) mg/dL Total Bilirubin 1.9 H (0.2-1.3) mg/dL AST 75 H (14-36) U/L ALT 37 H (4-34) U/L Creatine Kinase 558 H (30-135) U/L Urine Appearance (Clear) Urine Protein (Negative) Urine Blood (Negative) Ur Leukocyte Esterase (Negative) Urine RBC (0-5) /hpf Urine WBC (0-5) /hpf Urine Bacteria (None) /hpf Urine Mucus (None) /hpf 06/09/21 06/09/21 06/09/21 Range/Units 06:29 07:43 08:00 WBC 12.2 H (3.8-10.6) k/uL RBC 3.28 L (3.80-5.40) m/uL Hgb 10.8 L (11.4-16.0) gm/dL Hct 32.3 L (34.0-46.0) % Neutrophils # 9.2 H (1.3-7.7) k/uL Lymphocytes # (1.0-4.8) k/uL Sodium (137-145) mmol/L Chloride (98-107) mmol/L BUN (7-17) mg/dL Glucose (74-99) mg/dL POC Glucose (mg/dL) 235 H (75-99) mg/dL Total Bilirubin (0.2-1.3) mg/dL AST (14-36) U/L ALT (4-34) U/L Creatine Kinase (30-135) U/L Urine Appearance Cloudy H (Clear) Urine Protein 1+ H (Negative) Urine Blood Moderate H (Negative) Ur Leukocyte Esterase Large H (Negative) Urine RBC 16 H (0-5) /hpf Urine WBC 163 H (0-5) /hpf Urine Bacteria Many H (None) /hpf Urine Mucus Rare H (None) /hpf 06/09/21 Range/Units 08:29 WBC (3.8-10.6) k/uL RBC (3.80-5.40) m/uL Hgb (11.4-16.0) gm/dL Hct (34.0-46.0) % Neutrophils # (1.3-7.7) k/uL Lymphocytes # (1.0-4.8) k/uL Sodium (137-145) mmol/L Chloride (98-107) mmol/L BUN (7-17) mg/dL Glucose (74-99) mg/dL POC Glucose (mg/dL) 234 H (75-99) mg/dL Total Bilirubin (0.2-1.3) mg/dL AST (14-36) U/L ALT (4-34) U/L Creatine Kinase (30-135) U/L Urine Appearance (Clear) Urine Protein (Negative) Urine Blood (Negative) Ur Leukocyte Esterase (Negative) Urine RBC (0-5) /hpf Urine WBC (0-5) /hpf Urine Bacteria (None) /hpf Urine Mucus (None) /hpf
[2021-06-09] MEDS: HYDROcodone/APAP 5-325MG 1 EACH TAB PO PRN (16:35)
[2021-06-09 16:48] LABS: Glucose,Whole Blood 177 mg/dL (75-99)
[2021-06-09 22:53] LABS: Glucose,Whole Blood 257 mg/dL (75-99)
[2021-06-10] MEDS: HEPARIN SODIUM,PORCINE/PF 5,000 UNIT/0.5 ML SYRINGE SQ SCH ×4 (00:16→23:02)
[2021-06-10] MEDS: SODIUM CHLORIDE 0.9% 1,000 ML IV SCH ×3 (00:17→12:50)
[2021-06-10] MEDS: INSULIN ASPART (NovoLOG) 100 UNIT/ML VIAL SQ SCH ×5 (00:17→21:47)
[2021-06-10] MEDS: METOPROLOL TARTRATE 50 MG TAB PO SCH ×3 (00:17→21:47)
[2021-06-10] MEDS: LEVOTHYROXINE 50 MCG TAB PO SCH (06:24)
[2021-06-10 08:06] LABS: Glucose,Whole Blood 224 mg/dL (75-99)
[2021-06-10] MEDS: LISINOPRIL-HCTZ 20-25 MG 1 EACH TAB PO SCH (08:20)
[2021-06-10] MEDS: MULTIVITAMINS, THERA 1 EACH TAB PO SCH (08:20)
[2021-06-10] MEDS: ASPIRIN 81 MG PO SCH (08:20)
[2021-06-10] MEDS: PANTOPRAZOLE 40 MG TABLET PO SCH (08:21)
[2021-06-10] MEDS: DULoxetine HCL 30 MG CAPSULE.DR PO SCH (08:21)
[2021-06-10] MEDS: RALOXIFENE 60 MG TAB PO SCH (08:21)
[2021-06-10] MEDS: ATORVASTATIN 80 MG TAB PO SCH (08:21)
[2021-06-10 10:13] LABS: HCT 26.4 % (37.2-46.3); HGB 8.3 g/dL (12.0-15.0); MCH 30.6 pg (27.0-32.0); MCHC 31.4 g/dL (32.0-37.0); MCV 97.4 fL (80.0-97.0); Mean Platelet Volume 10.6 fL (9.5-12.2); NRBC Per 100 WBC 0 /100 WBCS (0.0-0.0); Platelet Count 198 X 10*3/uL (140-440); RBC 2.71 X 10*6/uL (4.10-5.20); RDW 14.2 % (11.5-14.5)
[2021-06-10 10:25] LABS: Albumin 3.4 g/dL (3.8-4.9); Albumin/Globulin Ratio 1.65 (1.60-3.17); BUN/Creat Ratio 27.23 Ratio (12.00-20.00); Calcium 8.6 mg/dL (8.7-10.3); Carbon Dioxide 23.4 mmol/L (20.0-27.5); Globulin 2.1 g/dL (1.6-3.3); Magnesium 1.7 mg/dL (1.5-2.4); Non-African American GFR(CKD) 81.1 (60.0-200.0); Potassium 3.4 mmol/L (3.5-5.5); Total Bilirubin 0.7 mg/dL (0.30-1.20); Total Protein 5.5 g/dL (6.2-8.2)
[2021-06-10 11:48] LABS: Glucose,Whole Blood 191 mg/dL (75-99)
[2021-06-10] MEDS ORDERED: MAGNESIUM OXIDE 400 MG TAB PO STA (12:11)
[2021-06-10] MEDS ORDERED: POTASSIUM CHLORIDE ER 20 MEQ TAB.ER PO STA (12:12)
[2021-06-10 14:56] LABS: Basophils # (A) 0.1 k/uL (0-0.2); Basophils % (A) 0 %; Eosinophils # (A) 0.1 k/uL (0-0.7); Eosinophils % (A) 1 %; HGB 9.9 gm/dL (11.4-16.0); Lymphocytes # (A) 1.5 k/uL (1.0-4.8); Lymphocytes % (A) 13 %; MCH 32.5 pg (25.0-35.0); MCV 101.5 fL (80.0-100.0); Macrocytosis Slight; Monocytes # (A) 0.7 k/uL (0-1.0); Monocytes % (A) 6 %; Neutrophils # (A) 9.2 k/uL (1.3-7.7); Neutrophils % (A) 78 %; Platelet Count 237 k/uL (150-450); RBC 3.06 m/uL (3.80-5.40); WBC 11.9 k/uL (3.8-10.6)
[2021-06-10 16:36] LABS: Glucose,Whole Blood 206 mg/dL (75-99)
--- NOTE | 2021-06-10 17:06 | P.PN ---
Subjective Progress Note Date: 06/10/21 Hospital course: Patient is a very pleasant 86-year-old female with a past medical history of hypertension, hyperlipidemia, hypothyroidism, and eom-iskcoyh-wuyllghur diabetes mellitus type 2. She presented to the emergency department status post fall. 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 Patient reports severe pain upon impact and inability to get herself off of the floor. Patient reports she remained on the floor overnight until her friend came by to celebrate her birthday with her following morning. In the emergency department patient underwent full evaluation. CT head and cervical spine completed negative for acute process. Chest x-ray unremarkable. X-ray right hip revealed acute fractures of the right superior and inferior pubic rami with displacement up to 7 mm. Patient was admitted under our services with consultation to orthopedic surgery. Physical exam: Patient seen and fully evaluated at the bedside this morning. Patient reports continued discomfort and right hip but reports pain has improved. Patient reports she was able to get up to chair and up to bedside commode with assistance. Plan is for discharge to [facility], however morning labs reveal a 2 g drop in hemoglobin from 10.8 down to 8.3. Patient has no noted bleeding but there is moderate bruising to right lateral hip and thigh. We will repeat hemoglobin this afternoon and again tomorrow morning and if stable will plan for discharge tomorrow. Patient remains on IV antibiotic Rocephin for treatment of UTI and with gentle hydration with 0.9% normal saline. Patient denies having any headache, lightheadedness, dizziness, chest pain, palpitations, or shortness of breath. Patient continues to have movement and sensation intact to right lower extremity. Orthopedics recommending rehab and ordering for toe-touch weightbearing on right lower extremity and use of walker for ambulation. Vital signs reviewed and stable. General: Nontoxic, no distress and appears stated age. Derm: Skin warm and dry, normal coloration for ethnicity. Moderate bruising right lateral thigh and hip Head: Atraumatic, normocephalic and symmetric. Eyes: EOMs intact, no lid lag, and anicteric sclera Mouth: no lip lesions, mucus membranes moist Cardiovascular: regular rate and rhythm with normal S1S2, no murmur, positive posterior tibial pulses bilaterally, and cap refill < 2 seconds. Lungs: Respirations even, regular, and unlabored on room air. Lungs CTA bilaterally, no rhonchi, no rales, no wheezing, and no accessory muscle usage. Abdominal: soft, nontender to palpation, no guarding, no appreciable organomegaly Ext: ROM intact. No gross muscle atrophy, no edema, no contractures Neuro: Speech clear, face symmetrical and CN II-XII grossly intact with no noted focal neuro deficits Psych: Alert and oriented to person, place, time, and situation. Appropriate and pleasant affect. Assessment and Plan of Care: Acute displaced superior and inferior pubic rami fractures -Symptomatic care and Pain control -Orthopedic consults -Strict bedrest pending further evaluation by orthopedic surgery -PT consult Acute anemia -Morning labs reveal a 2 g drop in hemoglobin from 10.8 down to 8.3. Patient has no noted bleeding but there is moderate bruising to right lateral hip and thigh. -We will continue to monitor closely with repeat hemoglobin this afternoon and again tomorrow morning. UTI with leukocytosis -Continue IV antibiotics with Rocephin -Follow up on urine culture, preliminary results positive for gram-negative bacilli -Monitor I's and O's -Bladder management Hyponatremia, likely secondary to ongoing pain -Gentle IV fluids -Monitor for now Elevated creatinine kinase -IVFs -Likely due to fall with prolonged down time and dehydration -Monitor for now Chronic conditions: Type II DM, hypertension, hyperlipidemia -Continue with home meds -Insulin sliding scale and blood glucose monitoring -Check A1c CODE STATUS: Full Code DVT prophylaxis: Heparin Discussed with: Patient and RN Anticipated discharge date: Clinical course to determine, plans to discharge tomorrow morning pending repeat hemoglobin and urine culture results Anticipated discharge place: [facility] A total of 38 minutes was spent on the care of this complex patient more than 50% of the time was spent in counseling and care coordination. Objective - Vital Signs Vital signs: Vital Signs Temp 98 F 06/10/21 08:00 Pulse 74 06/10/21 08:00 Resp 16 06/10/21 08:00 BP 164/72 06/10/21 08:00 Pulse Ox 98 06/10/21 08:00 Intake & Output 06/09/21 06/10/21 06/10/21 18:59 06:59 18:59 Intake Total 296 Balance 296 Weight 154 kg Intake: Oral 296 Other: Voiding Method External Catheter External Catheter # Voids 1 - Labs CBC & Chem 7: 06/10/21 13:55 06/10/21 05:12 Labs: Abnormal Lab Results - Last 24 Hours (Table) 06/09/21 06/09/21 06/09/21 Range/Units 11:36 16:45 22:51 POC Glucose (mg/dL) 251 H 177 H 257 H (75-99) mg/dL 06/10/21 Range/Units 08:04 POC Glucose (mg/dL) 224 H (75-99) mg/dL Microbiology - Last 24 Hours (Table) 06/09/21 08:00 Urine Culture - Preliminary Urine,Clean Catch
[2021-06-10 21:11] LABS: Glucose,Whole Blood 264 mg/dL (75-99)
[2021-06-11] MEDS: SODIUM CHLORIDE 0.9% 1,000 ML IV SCH ×4 (00:46→19:53)
[2021-06-11] MEDS: ACETAMINOPHEN TAB 325 MG TAB PO PRN (02:08)
[2021-06-11] MEDS: LEVOTHYROXINE 50 MCG TAB PO SCH (05:10)
[2021-06-11 07:21] LABS: Glucose,Whole Blood 199 mg/dL (75-99)
[2021-06-11] MEDS: LISINOPRIL-HCTZ 20-25 MG 1 EACH TAB PO SCH (08:42)
[2021-06-11] MEDS: HEPARIN SODIUM,PORCINE/PF 5,000 UNIT/0.5 ML SYRINGE SQ SCH ×2 (08:42→16:49)
[2021-06-11] MEDS: ATORVASTATIN 80 MG TAB PO SCH (08:42)
[2021-06-11] MEDS: ASPIRIN 81 MG PO SCH (08:42)
[2021-06-11] MEDS: METOPROLOL TARTRATE 50 MG TAB PO SCH ×2 (08:42→20:47)
[2021-06-11] MEDS: PANTOPRAZOLE 40 MG TABLET PO SCH (08:42)
[2021-06-11] MEDS: RALOXIFENE 60 MG TAB PO SCH (08:42)
[2021-06-11] MEDS: DULoxetine HCL 30 MG CAPSULE.DR PO SCH (08:42)
[2021-06-11] MEDS: INSULIN ASPART (NovoLOG) 100 UNIT/ML VIAL SQ SCH ×4 (08:42→20:49)
[2021-06-11] MEDS: MULTIVITAMINS, THERA 1 EACH TAB PO SCH (08:42)
[2021-06-11 09:31] LABS: HCT 23.5 % (37.2-46.3); HGB 7.4 g/dL (12.0-15.0); MCH 31.1 pg (27.0-32.0); MCHC 31.5 g/dL (32.0-37.0); MCV 98.7 fL (80.0-97.0); Mean Platelet Volume 10.5 fL (9.5-12.2); NRBC Per 100 WBC 0 /100 WBCS (0.0-0.0); Platelet Count 187 X 10*3/uL (140-440); RBC 2.38 X 10*6/uL (4.10-5.20); RDW 14.5 % (11.5-14.5)
[2021-06-11 09:54] LABS: Magnesium 1.5 mg/dL (1.5-2.4)
--- NOTE | 2021-06-11 10:14 | P.PN ---
Subjective Progress Note Date: 06/11/21 Hospital course: Patient is a very pleasant 86-year-old female with a past medical history of hypertension, hyperlipidemia, hypothyroidism, and eyj-xacbfjy-duzctqcfu diabetes mellitus type 2. She presented to the emergency department status post fall. 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 Patient reports severe pain upon impact and inability to get herself off of the floor. Patient reports she remained on the floor overnight until her friend came by to celebrate her birthday with her following morning. In the emergency department patient underwent full evaluation. CT head and cervical spine completed negative for acute process. Chest x-ray unremarkable. X-ray right hip revealed acute fractures of the right superior and inferior pubic rami with displacement up to 7 mm. Patient was admitted under our services with consultation to orthopedic surgery. [facility] evaluated and recommending rehab and ordering for toe-touch weightbearing on right lower extremity and use of walker for ambulation. Patient had noted drop in her hemoglobin and transfer to SNF was postponed while CBCs were trended. On 06/11/21 morning labs reveal hemoglobin is 7.4 which is a 3.4 g drop over 3 days. Patient and RN denies patient having any noted bleeding. Bruise to right lateral hip and thigh is extensive and dark purple in color. CT pelvis to be completed to rule out hematoma. CT pelvis without contrast was completed revealing redemonstration of known acute displaced comminuted fractures through the mid aspect of the right inferior pelvic ramus in the proximal aspect of the right superior pelvic ramus, ill- defined fluid and fat stranding in the right lateral thigh, and a more focal deep subcutaneous fluid collection or hematoma measuring at least 2.9 x 2.6 cm lateral to the right proximal femur. EVERETTE Reyes from [facility] was notified of CT findings and stated they will review CT and reevaluate. Patient otherwise denies having any complaints or needs at this time. Physical exam: Vital signs reviewed and stable. General: Nontoxic, no distress and appears stated age. Derm: Skin warm and dry, normal coloration for ethnicity. Moderate bruising right lateral thigh and hip Head: Atraumatic, normocephalic and symmetric. Eyes: EOMs intact, no lid lag, and anicteric sclera Mouth: no lip lesions, mucus membranes moist Cardiovascular: regular rate and rhythm with normal S1S2, no murmur, positive posterior tibial pulses bilaterally, and cap refill < 2 seconds. Lungs: Respirations even, regular, and unlabored on room air. Lungs CTA bilaterally, no rhonchi, no rales, no wheezing, and no accessory muscle usage. Abdominal: soft, nontender to palpation, no guarding, no appreciable organomegaly Ext: ROM intact. No gross muscle atrophy, no edema, no contractures Neuro: Speech clear, face symmetrical and CN II-XII grossly intact with no noted focal neuro deficits Psych: Alert and oriented to person, place, time, and situation. Appropriate and pleasant affect. Assessment and Plan of Care: Acute displaced superior and inferior pubic rami fractures Hematoma lateral to right proximal femur -Symptomatic care and Pain control -[facility] notified and to reevaluate/review, appreciate further recommendations. -[facility] cleared patient for toe-touch weightbearing on right lower extremity and use of walker for ambulation. -PT following Acute blood loss anemia Hematoma lateral to right proximal femur -On 06/11/21 morning labs reveal hemoglobin is 7.4 which is a 3.4 g drop over 3 days. -CT pelvis revealing hematoma measuring at least 2.9 x 2.6 cm lateral to right proximal femur. -Patient denies having any noted bleeding, does have a large extensive bruise to right lateral hip and thigh. -Patient's urinalysis was positive for blood, patient and RN denies any obvious hematuria or any other noted bleeding. We will continue to monitor and obtain a fecal occult to rule out other causes of blood loss while awaiting further recommendations from [facility] regarding hematoma noted on CT. -We will continue to monitor closely with repeat hemoglobin this afternoon and again tomorrow morning. -Continue Protonix 40 mg daily UTI with leukocytosis -Continue IV antibiotics with Rocephin -Follow up on urine culture, preliminary results positive for gram-negative bacilli -Monitor I's and O's -Bladder management Hyponatremia, resolved -Monitor for now Elevated creatinine kinase -IVFs -Likely due to fall with prolonged down time and dehydration -Monitor for now Chronic conditions: Type II DM, hypertension, hyperlipidemia -Continue with home meds -Insulin sliding scale and blood glucose monitoring CODE STATUS: Full Code DVT prophylaxis: Heparin Discussed with: Patient and RN Anticipated discharge date: Clinical course to determine, plans to discharge tomorrow morning pending repeat hemoglobin and urine culture results Anticipated discharge place: [facility] A total of 39 minutes was spent on the care of this complex patient more than 50% of the time was spent in counseling and care coordination. Objective - Vital Signs Vital signs: Vital Signs Temp 98.8 F 06/11/21 08:00 Pulse 82 06/11/21 08:00 Resp 16 06/11/21 08:00 BP 170/73 06/11/21 08:00 Pulse Ox 96 06/11/21 08:00 Intake & Output 06/10/21 06/11/21 06/11/21 18:59 06:59 18:59 Intake Total 828 1500 296 Balance 828 1500 296 Intake: Intake, IV Titration 1500 Amount Sodium Chloride 0.9% 1, 1500 000 ml @ 130 mls/hr IV . Q7H42M [facility] Rx#:[id number] Oral 828 296 Other: Voiding Method Diaper Diaper # Voids 3 - Labs CBC & Chem 7: 06/11/21 04:41 06/11/21 04:41 Labs: Abnormal Lab Results - Last 24 Hours (Table) 06/10/21 06/10/21 06/10/21 Range/Units 05:12 05:12 11:46 WBC (3.8-10.6) k/uL RBC 2.71 L (4.10-5.20) X 10*6/uL Hgb 8.3 L (12.0-15.0) g/dL Hct 26.4 L (37.2-46.3) % MCV 97.4 H (80.0-97.0) fL MCHC 31.4 L (32.0-37.0) g/dL Neutrophils # (1.3-7.7) k/uL Potassium 3.4 L (3.5-5.5) mmol/L BUN/Creatinine Ratio 27.23 H (12.00-20.00) Ratio Glucose 207 H (70-110) mg/dL POC Glucose (mg/dL) 191 H (75-99) mg/dL Calcium 8.6 L (8.7-10.3) mg/dL AST 57 H (13-35) U/L Creatine Kinase 654 H (26-186) U/L Total Protein 5.5 L (6.2-8.2) g/dL Albumin 3.4 L (3.8-4.9) g/dL 06/10/21 06/10/21 06/10/21 Range/Units 13:55 16:35 21:10 WBC 11.9 H (3.8-10.6) k/uL RBC 3.06 L (4.10-5.20) X 10*6/uL Hgb 9.9 L (12.0-15.0) g/dL Hct 31.0 L (37.2-46.3) % MCV 101.5 H (80.0-97.0) fL MCHC (32.0-37.0) g/dL Neutrophils # 9.2 H (1.3-7.7) k/uL Potassium (3.5-5.5) mmol/L BUN/Creatinine Ratio (12.00-20.00) Ratio Glucose (70-110) mg/dL POC Glucose (mg/dL) 206 H 264 H (75-99) mg/dL Calcium (8.7-10.3) mg/dL AST (13-35) U/L Creatine Kinase (26-186) U/L Total Protein (6.2-8.2) g/dL Albumin (3.8-4.9) g/dL 06/11/21 06/11/21 Range/Units 04:41 07:20 WBC (3.8-10.6) k/uL RBC 2.38 L (4.10-5.20) X 10*6/uL Hgb 7.4 L (12.0-15.0) g/dL Hct 23.5 L (37.2-46.3) % MCV 98.7 H (80.0-97.0) fL MCHC 31.5 L (32.0-37.0) g/dL Neutrophils # (1.3-7.7) k/uL Potassium (3.5-5.5) mmol/L BUN/Creatinine Ratio (12.00-20.00) Ratio Glucose (70-110) mg/dL POC Glucose (mg/dL) 199 H (75-99) mg/dL Calcium (8.7-10.3) mg/dL AST (13-35) U/L Creatine Kinase (26-186) U/L Total Protein (6.2-8.2) g/dL Albumin (3.8-4.9) g/dL Microbiology - Last 24 Hours (Table) 06/09/21 08:00 Urine Culture - Final Urine,Clean Catch Klebsiella pneumoniae
[2021-06-11 10:21] LABS: African American GFR (CKD) 95.9 (60.0-200.0); Albumin 2.9 g/dL (3.8-4.9); Albumin/Globulin Ratio 1.55 (1.60-3.17); BUN/Creat Ratio 21.26 Ratio (12.00-20.00); Blood Urea Nitrogen 13.2 mg/dL (9.0-27.0); Calcium 7.8 mg/dL (8.7-10.3); Carbon Dioxide 23.4 mmol/L (20.0-27.5); Globulin 1.9 g/dL (1.6-3.3); Non-African American GFR(CKD) 82.8 (60.0-200.0); Potassium 3.1 mmol/L (3.5-5.5); Total Bilirubin 0.7 mg/dL (0.30-1.20); Total Protein 4.8 g/dL (6.2-8.2)
--- NOTE | 2021-06-11 11:43 | CT ---
EXAMINATION TYPE: CT pelvis wo con DATE OF EXAM: 06/11/2021 COMPARISON: Pelvic and right hip x-ray 3 days ago. HISTORY: hematoma from pelvic fx. Fall injury recently with pelvic fracture. Persistent pain and swel ling. CT DLP: 606.8 mGycm Automated exposure control for dose reduction was used. FINDINGS: Redemonstration known acute displaced comminuted fractures through the mid aspect of the right inferi or pelvic ramus and the slightly more proximal aspect of the right superior pelvic ramus. This extend s into close proximity of the pubic symphysis but there is no diastases noted. No additional acute fr acture in the pelvis is identified. Metallic hardware of right hip arthroplasty causes streak artifact limiting evaluation of the pelvic structures. There is some ill-defined fluid and fat stranding in the right lateral thigh which is onl y partially imaged on this exam. There is more focal deep subcutaneous fluid collection or hematoma m easuring at least 2.9 x 2.6 cm axial image 40 lateral to the right proximal femur only partially imag ed. No additional focal fluid collection or hematoma clearly seen. No abnormal bowel dilatation. There is mild to moderately distended bladder with air-fluid level and some internal scattered foci of air presumed product of catheterization. Uterus surgically absent or markedly atrophic in appearance. Occasional anterior subcutaneous focus of air is presumed product of subcutaneous medicine injection. Tiny fat-containing umbilical hernia is noted. IMPRESSION: As above.
[2021-06-11 11:58] LABS: Glucose,Whole Blood 211 mg/dL (75-99)
[2021-06-11 16:41] LABS: Glucose,Whole Blood 314 mg/dL (75-99)
[2021-06-11 20:12] LABS: Glucose,Whole Blood 270 mg/dL (75-99)
[2021-06-11 23:15] LABS: HCT 24.1 % (37.2-46.3); HGB 7.5 g/dL (12.0-15.0); MCHC 31.1 g/dL (32.0-37.0); MCV 99.6 fL (80.0-97.0); Mean Platelet Volume 10.7 fL (9.5-12.2); NRBC Per 100 WBC 0 /100 WBCS (0.0-0.0); Platelet Count 191 X 10*3/uL (140-440); RBC 2.42 X 10*6/uL (4.10-5.20); RDW 14.3 % (11.5-14.5); WBC 9.98 X 10*3/uL (4.50-10.00)
[2021-06-12] MEDS: HEPARIN SODIUM,PORCINE/PF 5,000 UNIT/0.5 ML SYRINGE SQ SCH ×4 (00:32→23:43)
[2021-06-12] MEDS: SODIUM CHLORIDE 0.9% 1,000 ML IV SCH ×2 (04:39→09:43)
[2021-06-12] MEDS: LEVOTHYROXINE 50 MCG TAB PO SCH (06:06)
[2021-06-12] MEDS ORDERED: POTASSIUM CHLORIDE ER 20 MEQ TAB.ER PO STA (06:16)
[2021-06-12 07:18] LABS: Glucose,Whole Blood 187 mg/dL (75-99)
[2021-06-12] MEDS: METOPROLOL TARTRATE 50 MG TAB PO SCH ×2 (08:31→20:02)
[2021-06-12] MEDS: ASPIRIN 81 MG PO SCH (08:31)
[2021-06-12] MEDS: DULoxetine HCL 30 MG CAPSULE.DR PO SCH (08:31)
[2021-06-12] MEDS: INSULIN ASPART (NovoLOG) 100 UNIT/ML VIAL SQ SCH ×4 (08:31→20:02)
[2021-06-12] MEDS: RALOXIFENE 60 MG TAB PO SCH (08:31)
[2021-06-12] MEDS: MULTIVITAMINS, THERA 1 EACH TAB PO SCH (08:31)
[2021-06-12] MEDS: LISINOPRIL-HCTZ 20-25 MG 1 EACH TAB PO SCH (08:31)
[2021-06-12] MEDS: ATORVASTATIN 80 MG TAB PO SCH (08:31)
[2021-06-12] MEDS: PANTOPRAZOLE 40 MG TABLET PO SCH (08:31)
[2021-06-12 08:39] LABS: HCT 22.9 % (37.2-46.3); HGB 7.4 g/dL (12.0-15.0); MCH 31.6 pg (27.0-32.0); MCHC 32.3 g/dL (32.0-37.0); MCV 97.9 fL (80.0-97.0); Mean Platelet Volume 10.5 fL (9.5-12.2); NRBC Per 100 WBC 0 /100 WBCS (0.0-0.0); Platelet Count 190 X 10*3/uL (140-440); RBC 2.34 X 10*6/uL (4.10-5.20); RDW 14.3 % (11.5-14.5)
--- NOTE | 2021-06-12 09:23 | P.PN ---
Progress Note - Text Progress Note Date: 06/12/21 The patient is seen and examined today at bedside. She is not having any new complaints. She says her hip still hurts on the right when she tries to mobilize but washings laying still significant pain at all. She has been able to get up with therapy maintaining just toe-touch weightbearing on the right but it is quite difficult for her and she is unable to do this independently. She's not planning any new complaints. Her vital signs are stable. She's not having any tachypnea. On exam. She is not having any pain with gentle internal and external rotation at her right hip while in bed. She is able to flex her knee up but has pain at her groin. She's not having any pain at the left side. Her abdomen is soft nontender. She has some ecchymosis at her lateral thigh but does not seem to be expanding. Her hemoglobin status 7.4 which is remained stable from yesterday Assessment and plan Superior and inferior pubic rami fractures status post fall an acute injury Right hip pain due to superior and inferior Fracture without femur fracture The fractures the patient's pubic rami should heal appropriately conservative treatment. We do not have any surgical plans for her. It is okay for her to try to mobilize and ambulate maintaining touchdown weightbearing on the right l ower extremity. She will likely need to status for the next 3-6 weeks and then may start to put weight down on her right leg. She is having significant difficulty with her mobilization and his recurring maximal assist and will need placement with longterm or rehab post hospitalization. It is okay from a orthopedic standpoint for her to transfer to longterm or rehab whenever she is clear with medicine. We can follow her up on an outpatient basis in approximately 3 weeks with repeat x-rays of her pelvis and right hip
[2021-06-12 11:35] LABS: Glucose,Whole Blood 210 mg/dL (75-99)
[2021-06-12 12:04] LABS: Basophils % (A) 0 %; Eosinophils # (A) 0.1 k/uL (0-0.7); Eosinophils % (A) 2 %; HCT 27.4 % (34.0-46.0); HGB 8.7 gm/dL (11.4-16.0); Lymphocytes # (A) 1.4 k/uL (1.0-4.8); Lymphocytes % (A) 17 %; MCH 31.4 pg (25.0-35.0); MCHC 31.7 g/dL (31.0-37.0); MCV 99.1 fL (80.0-100.0); Mean Platelet Volume 7.3; Monocytes # (A) 0.7 k/uL (0-1.0); Monocytes % (A) 8 %; Neutrophils # (A) 5.9 k/uL (1.3-7.7); Neutrophils % (A) 70 %; Platelet Count 247 k/uL (150-450); RBC 2.77 m/uL (3.80-5.40); RDW 14.3 % (11.5-15.5); WBC 8.4 k/uL (3.8-10.6)
[2021-06-12 12:28] LABS: ALT 33 U/L (4-34); AST 44 U/L (14-36); African American GFR (CKD) >90 (>60 ml/min/1.73 sqM); Albumin 2.7 g/dL (3.5-5.0); Alkaline Phosphatase 98 U/L (38-126); Anion Gap 6 mmol/L; Blood Urea Nitrogen 9 mg/dL (7-17); Carbon Dioxide 23 mmol/L (22-30); Chloride 106 mmol/L (98-107); Globulin 2.8 g/dL; Glucose 201 mg/dL (74-99); Non-African American GFR(CKD) 86 (>60 ml/min/1.73 sqM); Potassium 3.7 mmol/L (3.5-5.1); Sodium 135 mmol/L (137-145); Total Bilirubin 1.3 mg/dL (0.2-1.3); Total Protein 5.5 g/dL (6.3-8.2)
--- NOTE | 2021-06-12 13:18 | P.PN ---
Subjective Progress Note Date: 06/12/21 Principal diagnosis: Superior and inferior pubic rami fracture Patient is a very pleasant 86-year-old female with a past medical history of hypertension, hyperlipidemia, hypothyroidism, and dpo-jjbskvo-burocimln diabetes mellitus type 2. She presented to the emergency department status post fall. 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 Patient reports severe pain upon impact and inability to get herself off of the floor. Patient reports she remained on the floor overnight until her friend came by to celebrate her birthday with her following morning. X-ray right hip revealed acute fractures of the right superior and inferior pubic rami with displacement up to 7 mm. Patient was admitted under our services with consultation to orthopedic surgery. [facility] evaluated and recommending rehab and ordering for toe- touch weightbearing on right lower extremity and use of walker for ambulation. Patient had noted drop in her hemoglobin and transfer to SNF was postponed while CBCs were trended. Repeat CT pelvis was completed revealing redemonstration of known acute displaced comminuted fractures through the mid aspect of the right inferior pelvic ramus in the proximal aspect of the right superior pelvic ramus, ill-defined fluid and fat stranding in the right lateral thigh, and a more focal deep subcutaneous fluid collection or hematoma measuring at least 2.9 x 2.6 cm lateral to the right proximal femur. Orthopedic surgery team did reevaluate patient and cleared patient to be discharged to rehab facility. At this time no changes to recommendations. And recommended conservative treatment. No plans for surgery 06/12/2021: Patient seen and examined. She is not complaining of any pain or nausea no vomiting no fevers or chills she just complains of generalized weakness. She is awaiting discharge to subacute rehab facility Objective - Vital Signs Vital signs: Vital Signs Temp 98.7 F 06/12/21 08:00 Pulse 86 06/12/21 08:00 Resp 20 06/11/21 20:00 BP 132/69 06/12/21 08:00 Pulse Ox 97 06/12/21 08:00 Intake & Output 06/11/21 06/12/21 06/12/21 18:59 06:59 18:59 Intake Total 828 1530 Output Total 650 Balance 828 880 Intake: Intake, IV Titration 1530 Amount Sodium Chloride 0.9% 1, 1430 000 ml @ 130 mls/hr IV . Q7H42M [facility] Rx#:[id number] cefTRIAXone 1 gm In 100 Sodium Chloride 0.9% 50 ml @ 100 mls/hr IVPB Q24HR [facility] Rx#:[id number] Oral 828 Output: Urine 650 Other: Voiding Method Diaper Diaper External Catheter # Voids 3 # Bowel Movements 0 - Exam Vital signs reviewed and stable. General: Nontoxic, no distress and appears stated age. Derm: Skin warm and dry, normal coloration for ethnicity. Moderate bruising right lateral thigh and hip Head: Atraumatic, normocephalic and symmetric. Eyes: EOMs intact, no lid lag, and anicteric sclera Mouth: no lip lesions, mucus membranes moist Cardiovascular: regular rate and rhythm with normal S1S2, no murmur, positive posterior tibial pulses bilaterally, and cap refill < 2 seconds. Lungs: Respirations even, regular, and unlabored on room air. Lungs CTA bilaterally, no rhonchi, no rales, no wheezing, and no accessory muscle usage. Abdominal: soft, nontender to palpation, no guarding, no appreciable organomegaly Ext: ROM intact. No gross muscle atrophy, no edema, no contractures Neuro: Speech clear, face symmetrical and CN II-XII grossly intact with no noted focal neuro deficits Psych: Alert and oriented to person, place, time, and situation. Appropriate and pleasant affect. - Labs CBC & Chem 7: 06/12/21 11:49 06/12/21 11:49 Labs: Abnormal Lab Results - Last 24 Hours (Table) 06/11/21 06/11/21 06/11/21 Range/Units 15:35 16:40 20:11 RBC 2.42 L (4.10-5.20) X 10*6/uL Hgb 7.5 L (12.0-15.0) g/dL Hct 24.1 L (37.2-46.3) % MCV 99.6 H (80.0-97.0) fL MCHC 31.1 L (32.0-37.0) g/dL Sodium (137-145) mmol/L Potassium (3.5-5.1) mmol/L Glucose (74-99) mg/dL POC Glucose (mg/dL) 314 H 270 H (75-99) mg/dL Calcium (8.4-10.2) mg/dL AST (14-36) U/L Total Protein (6.3-8.2) g/dL Albumin (3.5-5.0) g/dL 06/12/21 06/12/21 06/12/21 Range/Units 03:58 03:58 07:16 RBC 2.34 L (4.10-5.20) X 10*6/uL Hgb 7.4 L (12.0-15.0) g/dL Hct 22.9 L (37.2-46.3) % MCV 97.9 H (80.0-97.0) fL MCHC (32.0-37.0) g/dL Sodium (137-145) mmol/L Potassium 3.0 L (3.5-5.1) mmol/L Glucose (74-99) mg/dL POC Glucose (mg/dL) 187 H (75-99) mg/dL Calcium (8.4-10.2) mg/dL AST (14-36) U/L Total Protein (6.3-8.2) g/dL Albumin (3.5-5.0) g/dL 06/12/21 06/12/21 06/12/21 Range/Units 11:33 11:49 11:49 RBC 2.77 L (4.10-5.20) X 10*6/uL Hgb 8.7 L (12.0-15.0) g/dL Hct 27.4 L (37.2-46.3) % MCV (80.0-97.0) fL MCHC (32.0-37.0) g/dL Sodium 135 L (137-145) mmol/L Potassium (3.5-5.1) mmol/L Glucose 201 H (74-99) mg/dL POC Glucose (mg/dL) 210 H (75-99) mg/dL Calcium 8.0 L (8.4-10.2) mg/dL AST 44 H (14-36) U/L Total Protein 5.5 L (6.3-8.2) g/dL Albumin 2.7 L (3.5-5.0) g/dL Microbiology - Last 24 Hours (Table) 06/09/21 08:00 Urine Culture - Final Urine,Clean Catch Klebsiella pneumoniae Assessment and Plan (1) Fracture of superior ramus of right pubis Current Visit: Yes Status: Acute Code(s): S32.511A - FRACTURE OF SUPERIOR RIM OF RIGHT PUBIS, INIT FOR CLOS FX SNOMED Code(s): 786414518 Plan: Acute displaced superior and inferior pubic rami fractures Hematoma lateral to right proximal femur -Continue with pain control, [place], duloxetine -At this time no surgical intervention per orthopedic surgery team plans to continue with conservative management -[facility] cleared patient for toe-touch weightbearing on right lower extremity and use of walker for ambulation. -Patient is awaiting discharge to subacute rehab facility Acute blood loss anemia Hematoma lateral to right proximal femur -No signs of active bleeding at this time. Patient's hemoglobin has stabilized at 8.7. -CT pelvis revealing hematoma measuring at least 2.9 x 2.6 cm lateral to right proximal femur. -Continue to monitor hemoglobin and transfuse if less than 7. -Continue Protonix 40 mg daily UTI with leukocytosis -Continue IV antibiotics with Rocephin -Urine culture revealing Klebsiella pneumonia pansensitive. Continue with ceftriaxone Hyponatremia, resolved -Monitor for now Elevated creatinine kinase -IVFs -Likely due to fall with prolonged down time and dehydration -Monitor for now Chronic conditions: Type II DM, hypertension, hyperlipidemia -Continue with home meds -Insulin sliding scale and blood glucose monitoring Patient is stable for discharge. Just awaiting bed availability a subacute rehab facility.
[2021-06-12 16:22] LABS: Glucose,Whole Blood 219 mg/dL (75-99)
[2021-06-12] MEDS: ACETAMINOPHEN TAB 325 MG TAB PO PRN (19:06)
[2021-06-12 19:58] LABS: Glucose,Whole Blood 279 mg/dL (75-99)
[2021-06-13] MEDS: LEVOTHYROXINE 50 MCG TAB PO SCH (05:28)
[2021-06-13 06:54] LABS: Glucose,Whole Blood 186 mg/dL (75-99)
[2021-06-13] MEDS: RALOXIFENE 60 MG TAB PO SCH (07:49)
[2021-06-13] MEDS: PANTOPRAZOLE 40 MG TABLET PO SCH (07:49)
[2021-06-13] MEDS: MULTIVITAMINS, THERA 1 EACH TAB PO SCH (07:49)
[2021-06-13] MEDS: DULoxetine HCL 30 MG CAPSULE.DR PO SCH (07:50)
[2021-06-13] MEDS: INSULIN ASPART (NovoLOG) 100 UNIT/ML VIAL SQ SCH ×4 (07:50→20:45)
[2021-06-13] MEDS: LISINOPRIL-HCTZ 20-25 MG 1 EACH TAB PO SCH (07:50)
[2021-06-13] MEDS: ATORVASTATIN 80 MG TAB PO SCH (07:50)
[2021-06-13] MEDS: METOPROLOL TARTRATE 50 MG TAB PO SCH ×2 (07:50→20:45)
[2021-06-13] MEDS: ASPIRIN 81 MG PO SCH (07:50)
[2021-06-13] MEDS: HEPARIN SODIUM,PORCINE/PF 5,000 UNIT/0.5 ML SYRINGE SQ SCH ×3 (07:50→23:00)
[2021-06-13 09:12] LABS: Basophils # (A) 0.03 X 10*3/uL (0.00-0.10); Basophils % (A) 0.4 %; Eosinophils # (A) 0.29 X 10*3/uL (0.04-0.35); Eosinophils % (A) 4.2 %; HCT 24.3 % (37.2-46.3); HGB 7.9 g/dL (12.0-15.0); Immature Grans, Automated 0.7 %; Lymphocytes # (A) 1.76 X 10*3/uL (0.90-5.00); Lymphocytes % (A) 25.7 %; MCH 31.6 pg (27.0-32.0); MCHC 32.5 g/dL (32.0-37.0); MCV 97.2 fL (80.0-97.0); Mean Platelet Volume 10.7 fL (9.5-12.2); Monocytes # (A) 0.77 X 10*3/uL (0.20-1.00); Monocytes % (A) 11.2 %; NRBC Per 100 WBC 0 /100 WBCS (0.0-0.0); Neutrophils # (A) 3.96 X 10*3/uL (1.80-7.70); Neutrophils % (A) 57.8 %; Platelet Count 231 X 10*3/uL (140-440); WBC 6.86 X 10*3/uL (4.50-10.00)
[2021-06-13 09:32] LABS: Anion Gap 9.9 mmol/L (10.00-18.00); Blood Urea Nitrogen 6.5 mg/dL (9.0-27.0); Calcium 8.1 mg/dL (8.7-10.3); Carbon Dioxide 23.1 mmol/L (20.0-27.5); Non-African American GFR(CKD) 88.9 (60.0-200.0)
[2021-06-13] MEDS ORDERED: POTASSIUM CHLORIDE 20 MEQ in WATER FOR INJECTION 1 100ML.BAG IVPB STA (10:17)
[2021-06-13] MEDS ORDERED: POTASSIUM CHLORIDE ER 20 MEQ TAB.ER PO STA (10:17)
[2021-06-13 11:24] LABS: Glucose,Whole Blood 192 mg/dL (75-99)
--- NOTE | 2021-06-13 16:20 | P.PN ---
Subjective Progress Note Date: 06/13/21 Principal diagnosis: Pubic rami fracture Patient is a very pleasant 86-year-old female with a past medical history of hypertension, hyperlipidemia, hypothyroidism, and ojp-xtigcbg-zlgezbcwe diabetes mellitus type 2. She presented to the emergency department status post fall. 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 Patient reports severe pain upon impact and inability to get herself off of the floor. Patient reports she remained on the floor overnight until her friend came by to celebrate her birthday with her following morning. X-ray right hip revealed acute fractures of the right superior and inferior pubic rami with displacement up to 7 mm. Patient was admitted under our services with consultation to orthopedic surgery. [facility] evaluated and recommending rehab and ordering for toe- touch weightbearing on right lower extremity and use of walker for ambulation. Patient had noted drop in her hemoglobin and transfer to SNF was postponed while CBCs were trended. Repeat CT pelvis was completed revealing redemonstration of known acute displaced comminuted fractures through the mid aspect of the right inferior pelvic ramus in the proximal aspect of the right superior pelvic ramus, ill-defined fluid and fat stranding in the right lateral thigh, and a more focal deep subcutaneous fluid collection or hematoma measuring at least 2.9 x 2.6 cm lateral to the right proximal femur. Orthopedic surgery team did reevaluate patient and cleared patient to be discharged to rehab facility. At this time no changes to recommendations. And recommended conservative treatment. No plans for surgery 06/13/21: Patient seen and examined. Patient reports well-controlled pain in her hip. She denies any chest pain, shortness of breath or palpitations. No nausea or vomiting. No fever or chills. No dizziness. Hemoglobin today 7.9 down from 8.7 yesterday. BMP shows potassium of 3, glucose of 173 and calcium of 8.1. She is awaiting subacute rehab placement likely tomorrow. Objective - Vital Signs Vital signs: Vital Signs Temp 98.3 F 06/13/21 14:00 Pulse 74 06/13/21 14:00 Resp 17 06/13/21 02:00 BP 137/77 06/13/21 14:00 Pulse Ox 98 06/13/21 14:00 Intake & Output 06/12/21 06/13/21 06/13/21 18:59 06:59 18:59 Intake Total 200 Output Total 700 650 Balance -700 -450 Intake: Oral 200 Output: Urine 700 650 Other: Voiding Method Diaper External Catheter # Voids 2 # Bowel Movements 0 - Exam General: [non toxic], [no distress], [appears at stated age] Derm: [warm], [dry] Head: [atraumatic], [normocephalic], [symmetric] Eyes: [EOMI], [no lid lag], [anicteric sclera] Mouth: [no lip lesion], [mucus membranes moist] Cardiovascular: [S1S2 reg], [no murmur], [positive DP pulse bilateral], Lungs: [CTA bilateral], [no rhonchi, no rales] , [no accessory muscle use] Abdominal: [soft], [ nontender to palpation] Ext: [no gross muscle atrophy], [no edema], [no contractures], [bruising over the R lateral hip] Neuro: [no focal neuro deficits] Psych: [Alert], [oriented], [appropriate affect] - Labs CBC & Chem 7: 06/13/21 06:29 06/13/21 06:29 Labs: Abnormal Lab Results - Last 24 Hours (Table) 06/12/21 06/12/21 06/13/21 Range/Units 16:20 19:57 06:29 RBC 2.50 L (4.10-5.20) X 10*6/uL Hgb 7.9 L (12.0-15.0) g/dL Hct 24.3 L (37.2-46.3) % MCV 97.2 H (80.0-97.0) fL Immature Gran # 0.05 H (0.00-0.04) X 10*3/uL Potassium (3.5-5.5) mmol/L Anion Gap (10.00-18.00) mmol/L BUN (9.0-27.0) mg/dL Creatinine (0.6-1.5) mg/dL Glucose (70-110) mg/dL POC Glucose (mg/dL) 219 H 279 H (75-99) mg/dL Calcium (8.7-10.3) mg/dL 05/03/0606/13/21 06/13/21 Range/Units 06:29 06:53 11:22 RBC (4.10-5.20) X 10*6/uL Hgb (12.0-15.0) g/dL Hct (37.2-46.3) % MCV (80.0-97.0) fL Immature Gran # (0.00-0.04) X 10*3/uL Potassium 3.0 L (3.5-5.5) mmol/L Anion Gap 9.90 L (10.00-18.00) mmol/L BUN 6.5 L (9.0-27.0) mg/dL Creatinine 0.5 L (0.6-1.5) mg/dL Glucose 173 H (70-110) mg/dL POC Glucose (mg/dL) 186 H 192 H (75-99) mg/dL Calcium 8.1 L (8.7-10.3) mg/dL Assessment and Plan Assessment: Hypokalemia -Todays potassium of 3 -Replace with 40 mEq by mouth and 20 mEq IV -Repeat BMP tomorrow morning Acute displaced superior and inferior pubic rami fractures -Continue with pain control, [place], duloxetine -At this time no surgical intervention per orthopedic surgery team plans to continue with conservative management -[facility] cleared patient for toe-touch weightbearing on right lower extremity and use of walker for ambulation. -Patient is awaiting discharge to subacute rehab facility Acute blood loss anemia Hematoma lateral to right proximal femur -No signs of active bleeding at this time. Patient's hemoglobin today is 7.9, -CT pelvis revealing hematoma measuring at least 2.9 x 2.6 cm lateral to right proximal femur. -Continue to monitor hemoglobin and transfuse if less than 7. -Continue Protonix 40 mg daily UTI with leukocytosis -Urine culture revealing Klebsiella pneumonia pansensitive. -Continue with ceftriaxone (day 4/5) Hyponatremia, resolved -Monitor for now Elevated creatinine kinase -IVFs -Likely due to fall with prolonged down time and dehydration -Monitor for now Chronic conditions: Type II DM, hypertension, hyperlipidemia -Continue with home meds -Insulin sliding scale and blood glucose monitoring Patient is stable for discharge. Just awaiting bed availability a subacute rehab facility.
[2021-06-13 16:46] LABS: Glucose,Whole Blood 233 mg/dL (75-99)
[2021-06-13] MEDS: ACETAMINOPHEN TAB 325 MG TAB PO PRN (19:02)
[2021-06-13 20:35] LABS: Glucose,Whole Blood 213 mg/dL (75-99)
[2021-06-14 03:06] VITALS: TEMP 98.3
[2021-06-14] MEDS: LEVOTHYROXINE 50 MCG TAB PO SCH (05:31)
[2021-06-14 06:49] LABS: Basophils % (A) 1 %; Eosinophils # (A) 0.3 k/uL (0-0.7); Eosinophils % (A) 5 %; HCT 28.9 % (34.0-46.0); HGB 8.9 gm/dL (11.4-16.0); Hypochromasia Slight; Lymphocytes # (A) 1.7 k/uL (1.0-4.8); Lymphocytes % (A) 27 %; MCHC 30.8 g/dL (31.0-37.0); MCV 100.9 fL (80.0-100.0); Macrocytosis Slight; Monocytes # (A) 0.5 k/uL (0-1.0); Monocytes % (A) 8 %; Neutrophils # (A) 3.6 k/uL (1.3-7.7); Neutrophils % (A) 57 %; Platelet Count 243 k/uL (150-450); RBC 2.86 m/uL (3.80-5.40); RDW 13.4 % (11.5-15.5); WBC 6.4 k/uL (3.8-10.6)
[2021-06-14 06:57] LABS: Glucose,Whole Blood 171 mg/dL (75-99)
[2021-06-14 07:08] LABS: ALT 35 U/L (4-34); AST 49 U/L (14-36); African American GFR (CKD) >90 (>60 ml/min/1.73 sqM); Albumin 2.6 g/dL (3.5-5.0); Alkaline Phosphatase 123 U/L (38-126); Anion Gap 8 mmol/L; Blood Urea Nitrogen 6 mg/dL (7-17); Calcium 8.2 mg/dL (8.4-10.2); Carbon Dioxide 23 mmol/L (22-30); Chloride 103 mmol/L (98-107); Globulin 2.7 g/dL; Glucose 150 mg/dL (74-99); Non-African American GFR(CKD) 88 (>60 ml/min/1.73 sqM); Potassium 3.7 mmol/L (3.5-5.1); Sodium 134 mmol/L (137-145); Total Bilirubin 1.4 mg/dL (0.2-1.3); Total Protein 5.3 g/dL (6.3-8.2)
[2021-06-14] MEDS: MULTIVITAMINS, THERA 1 EACH TAB PO SCH (10:40)
[2021-06-14] MEDS: INSULIN ASPART (NovoLOG) 100 UNIT/ML VIAL SQ SCH ×2 (10:40→12:55)
[2021-06-14] MEDS: DULoxetine HCL 30 MG CAPSULE.DR PO SCH (10:40)
[2021-06-14] MEDS: PANTOPRAZOLE 40 MG TABLET PO SCH (10:41)
[2021-06-14] MEDS: ASPIRIN 81 MG PO SCH (10:41)
[2021-06-14] MEDS: HEPARIN SODIUM,PORCINE/PF 5,000 UNIT/0.5 ML SYRINGE SQ SCH (10:41)
[2021-06-14] MEDS: RALOXIFENE 60 MG TAB PO SCH (10:41)
[2021-06-14] MEDS: LISINOPRIL-HCTZ 20-25 MG 1 EACH TAB PO SCH (10:41)
[2021-06-14] MEDS: METOPROLOL TARTRATE 50 MG TAB PO SCH (10:41)
[2021-06-14] MEDS: ATORVASTATIN 80 MG TAB PO SCH (10:41)
--- NOTE | 2021-06-14 11:11 | P.DS ---
Providers Date of admission: 06/09/21 00:36 Expected date of discharge: 06/14/21 Attending physician: Zev Franklin MD Consults: 06/08/21 22:15 Consult Physician Urgent Consulting Provider: Abbe Carbajal Consult Reason/Comments: Acute right pubic rami displaced fractures Do you want consulting provider notified?: Yes Primary care physician: [facility] Course: Patient is a very pleasant 86-year-old female with a past medical history of hypertension, hyperlipidemia, hypothyroidism, and lyb-[id number]-lxzbmuxly diabetes mellitus type 2. She presented to the emergency department status post fall. 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 Patient reports severe pain u claritza impact and inability to get herself off of the floor. Patient reports she remained on the floor overnight until her friend came by to celebrate her birthday with her following morning. X-ray right hip revealed acute fractures of the right superior and inferior pubic rami with displacement up to 7 mm. Patient was admitted under our services with consultation to orthopedic surgery. Orthopedic associates evaluated and recommending rehab and ordering for toe- touch weightbearing on right lower extremity and use of walker for ambulation. Patient had noted drop in her hemoglobin and transfer to SNF was postponed while CBCs were trended. Repeat CT pelvis was completed revealing redemonstration of known acute displaced comminuted fractures through the mid aspect of the right inferior pelvic ramus in the proximal aspect of the right superior pelvic ramus, ill-defined fluid and fat stranding in the right lateral thigh, and a more focal deep subcutaneous fluid collection or hematoma measuring at least 2.9 x 2.6 cm lateral to the right proximal femur. Orthopedic surgery team did reevaluate patient and cleared patient to be discharged to rehab facility. No surgial intervention was recommended. Her hemoglobin remained stable during her hospitalization and was 8.9 at the time of discharge. Case was discussed with case management, patient accepted to [facility] on 06/14/2021. Patient was seen and examined on 06/14/2021. She reported well-controlled pain in her right hip. She was a little apprehensive about going to rehab today. She denied any specific complaints. This complex discharge took about 45 minutes to complete. General: [non toxic], [no distress], [appears at stated age] Derm: [warm], [dry] Head: [atraumatic], [normocephalic], [symmetric] Eyes: [EOMI], [no lid lag], [anicteric sclera] Mouth: [no lip lesion], [mucus membranes moist] Cardiovascular: [S1S2 reg], [no murmur], [positive DP pulse bilateral], Lungs: [CTA bilateral], [no rhonchi, no rales] , [no accessory muscle use] Abdominal: [soft], [ nontender to palpation] Ext: [no gross muscle atrophy], [no edema], [no contractures], [bruising over the R lateral hip] Neuro: [no focal neuro deficits] Psych: [Alert], [oriented], [appropriate affect] Discharge diagnosis: Acute displaced superior and inferior pubic rami fractures -Continue with pain control, Royal, duloxetine -At this time no surgical intervention per orthopedic surgery team plans to continue with conservative management -[facility] cleared patient for toe-touch weightbearing on right lower extremity and use of walker for ambulation. Acute blood loss anemia Hematoma lateral to right proximal femur -No signs of active bleeding at this time. Patient's hemoglobin today is 8.9 -CT pelvis revealing hematoma measuring at least 2.9 x 2.6 cm lateral to right proximal femur. -Continue to monitor hemoglobin and transfuse if less than 7. -Continue Protonix 40 mg daily UTI with leukocytosis -Urine culture revealing Klebsiella pneumonia pansensitive. -Completed 5 days Rocephin. Hyponatremia, resolved Hypokalemia, resolved Elevated creatinine kinase -IVFs -Likely due to fall with prolonged down time and dehydration -Monitor for now Chronic conditions: Type II DM, hypertension, hyperlipidemia -Continue with home meds -Insulin sliding scale and blood glucose monitoring Pertinent Studies: Chest X ray Hip/Pelvis X ray Head/neck CT Pelvis CT Patient Condition at Discharge: Stable Plan - Discharge Summary New Discharge Prescriptions: New HYDROcodone/APAP 5-325MG [Royal 5-325] 1 each PO Q4HR PRN #12 tab PRN Reason: Moderate Pain Acetaminophen Tab [Tylenol] 650 mg PO Q6HR PRN tab PRN Reason: Mild Pain Or Fever > 100.5 Continue Omeprazole Magnesium [PriLOSEC OTC] 20 mg PO DAILY Calcium Carbonate/Vitamin D3 [Calcium 500-Vit D3 15 Mcg (600 Iu)] 1 tab PO DAILY Raloxifene HCl 60 mg PO DAILY Cholecalciferol [Vitamin D3 (25 Mcg = 1000 Iu)] 25 mcg PO DAILY Aspirin EC [Ecotrin Low Dose] 81 mg PO DAILY Lisinopril-Hctz 20-25 mg [Zestoretic 20-25] 1 tab PO DAILY glipiZIDE [Glucotrol] 10 mg PO BID Levothyroxine Sodium [Synthroid] 50 mcg PO DAILY Fluticasone Nasal [place] [Flonase Nasal [place]] 1 spray EA NOSTRIL DAILY DULoxetine HCL [Cymbalta] 30 mg PO DAILY Atorvastatin Calcium [Lipitor] 80 mg PO DAILY [place]-3 Fatty Acids/Fish Oil [Fish Oil 1,000 mg Softgel] 4 cap PO DAILY Multivitamins, Thera [Multivitamin (formulary)] 1 tab PO DAILY Pioglitazone [Actos] 45 mg PO DAILY Metoprolol Tartrate [Lopressor] 50 mg PO BID Diphenoxylate HCl/Atropine [Lomotil 2.5-0.025 mg Tablet] 1 tab PO TID PRN PRN Reason: Diarrhea Discharge Medication List Aspirin EC [Ecotrin Low Dose] 81 mg PO DAILY 06/08/21 [History] Atorvastatin Calcium [Lipitor] 80 mg PO DAILY 06/08/21 [History] Calcium Carbonate/Vitamin D3 [Calcium 500-Vit D3 15 Mcg (600 Iu)] 1 tab PO DAILY 06/08/21 [History] Cholecalciferol [Vitamin D3 (25 Mcg = 1000 Iu)] 25 mcg PO DAILY 06/08/21 [History] DULoxetine HCL [Cymbalta] 30 mg PO DAILY 06/08/21 [History] Diphenoxylate HCl/Atropine [Lomotil 2.5-0.025 mg Tablet] 1 tab PO TID PRN 06/08/21 [History] Fluticasone Nasal [place] [Flonase Nasal [place]] 1 spray EA NOSTRIL DAILY 06/08/21 [History] Levothyroxine Sodium [Synthroid] 50 mcg PO DAILY 06/08/21 [History] Lisinopril-Hctz 20-25 mg [Zestoretic 20-25] 1 tab PO DAILY 06/08/21 [History] Metoprolol Tartrate [Lopressor] 50 mg PO BID 06/08/21 [History] Multivitamins, Thera [Multivitamin (formulary)] 1 tab PO DAILY 06/08/21 [History] [place]-3 Fatty Acids/Fish Oil [Fish Oil 1,000 mg Softgel] 4 cap PO DAILY 06/08/21 [History] Omeprazole Magnesium [PriLOSEC OTC] 20 mg PO DAILY 06/08/21 [History] Pioglitazone [Actos] 45 mg PO DAILY 06/08/21 [History] Raloxifene HCl 60 mg PO DAILY 06/08/21 [History] glipiZIDE [Glucotrol] 10 mg PO BID 06/08/21 [History] Acetaminophen Tab [Tylenol] 650 mg PO Q6HR PRN tab 06/14/21 [Rx] HYDROcodone/APAP 5-325MG [Royal 5-325] 1 each PO Q4HR PRN #12 tab 06/14/21 [Rx] Follow up Appointment(s)/Referral(s): Adolfo Juarez PAC [PHYSICIAN INSPECTOR] - 06/28/21 1:30 pm ( ) [facility], [NON-STAFF] - As Needed Harpal Hogue DO [Primary Care Provider] - 1-2 days Activity/Diet/Wound Care/Special Instructions: Activity: As tolerated. Take breaks as needed. Toe-touch weightbearing on the right lower extremity. Patient may utilize walker or other walking aid as needed for assistance with ambulation. Diet: Heart healthy and carb consistent diet. Avoid salts, or foods with hidden salts such as canned or boxed foods and frozen dinners. Extra salt makes your heart work harder and traps the fluid in your body for longer. Special Instructions: Take all of your medications as directed and remember to keep all of your doctor's appointments and follow-up as needed. Thank you for allowing us to participate in your care, it was truly a pleasure having you for our patient!!! Discharge Disposition: TRANSFER TO SNF/ECF
[2021-06-14 11:32] LABS: Glucose,Whole Blood 260 mg/dL (75-99)
[2021-06-14 14:10] VITALS: BMI 28.2
[2021-06-14] MEDS: HYDROcodone/APAP 5-325MG 1 EACH TAB PO PRN (14:43)
[2021-06-14 14:59] VITALS: BP 141/68; PULSE 73; RESP 16
== END 2021-06-14 14:57 | DRG 536 ==
LOC: SUPCPDRO 12:53 → EC 12:53 → 4SSUR 06-09 00:36
PROVIDERS: ADMIT Internal Medicine; ATTEND Internal Medicine
DX: S32.591A Other specified fracture of right pubis, initial encounter for closed fracture (principal); D62 Acute posthemorrhagic anemia; E87.1 Hypo-osmolality and hyponatremia; N39.0 Urinary tract infection, site not specified; Z60.2 Problems related to living alone; W18.30XA Fall on same level, unspecified, initial encounter; S70.01XA Contusion of right hip, initial encounter; R74.8 Abnormal levels of other serum enzymes; E03.9 Hypothyroidism, unspecified; Y92.000 Kitchen of unspecified non-institutional (private) residence as the place of occurrence of the external cause; E11.65 Type 2 diabetes mellitus with hyperglycemia; E78.5 Hyperlipidemia, unspecified; E86.0 Dehydration; E87.6 Hypokalemia; I10 Essential (primary) hypertension; B96.1 Klebsiella pneumoniae [K. pneumoniae] as the cause of diseases classified elsewhere; Z79.82 Long term (current) use of aspirin; Z79.84 Long term (current) use of oral hypoglycemic drugs; Z79.890 Hormone replacement therapy; Z79.899 Other long term (current) drug therapy; Z91.81 History of falling; Z96.641 Presence of right artificial hip joint; Z98.890 Other specified postprocedural states; E66.9 Obesity, unspecified; Z68.28 Body mass index [BMI] 28.0-28.9, adult
CPT/HCPCS: 36415; 70450; 71045; 72125; 72192; 73502; 80048; 80053; 81001; 82550; 83605; 83735; 84132; 84484; 85025; 85027; 87077; 87086; 87186; 93005; 96360; 96361; 99285

== ENCOUNTER 2021-08-15 16:16 | Inpatient (IN) | payer MEDICARE ==
[2021-08-15] MEDS ORDERED: ONDANSETRON 4 MG/2 ML VIAL IVP STA (16:36)
[2021-08-15] MEDS ORDERED: SODIUM CHLORIDE 0.9% 1,000 ML IV STA (16:36)
[2021-08-15] MEDS ORDERED: ACETAMINOPHEN TAB 500 MG TAB PO STA (16:36)
[2021-08-15] MEDS ORDERED: diphenhydrAMINE 50 MG/ML 1 ML VIAL IVP STA (16:44)
[2021-08-15] MEDS ORDERED: METOCLOPRAMIDE 5 MG/ML 2 ML VIAL IVP STA (16:44)
--- NOTE | 2021-08-15 17:03 | ED ---
General Adult HPI - General Chief complaint: Nausea/Vomiting/Diarrhea Stated complaint: nausea/vomiting Time Seen by Provider: 08/15/21 16:30 Source: patient, EMS Mode of arrival: EMS Limitations: no limitations - History of Present Illness Initial comments: 86-year-old female with past history of diabetes, hypertension presents to the emergency department with nausea, vomiting and fever. EMS was called for question seizure-like activity however the patient was found to be febrile and shivering. She has had nausea, vomiting and intermittent diarrhea for years. States that her symptoms have been worse over the past couple of days. She does arrive and is febrile. Patient unaware that she was having fevers at home. She denies any chest pain. No cough or shortness of breath. No abdominal pain. No rashes. No sick contacts. No recent medication changes. No other alleviating, precipitating or modifying factors Daughter does arrive to bedside. States that the patient has had some dry heaving and diarrhea since she was released [facility] on August [facility]. - Related Data Home Medications Medication Instructions Recorded Confirmed Aspirin EC [Ecotrin Low Dose] 81 mg PO DAILY 06/08/21 08/15/21 Atorvastatin Calcium [Lipitor] 80 mg PO HS 06/08/21 08/15/21 Cholecalciferol [Vitamin D3 (25 25 mcg PO DAILY 06/08/21 08/15/21 Mcg = 1000 Iu)] DULoxetine HCL [Cymbalta] 30 mg PO DAILY 06/08/21 08/15/21 Levothyroxine Sodium [Synthroid] 50 mcg PO HS 06/08/21 08/15/21 Lisinopril-Hctz 20-25 mg 1 tab PO DIRECTED 06/08/21 08/15/21 [Zestoretic 20-25] Metoprolol Tartrate [Lopressor] 50 mg PO BID 06/08/21 08/15/21 Multivitamins, Thera [Multivitamin 1 tab PO DAILY 06/08/21 08/15/21 (formulary)] [place]-3 Fatty Acids/Fish Oil [Fish 1 cap PO HS 06/08/21 08/15/21 Oil 1,000 mg Softgel] Pioglitazone [Actos] 45 mg PO DAILY 06/08/21 08/15/21 Raloxifene HCl 60 mg PO DAILY 06/08/21 08/15/21 glipiZIDE [Glucotrol] 10 mg PO DAILY 06/08/21 08/15/21 Calcium Carbonate [Calcium] 600 mg PO DAILY 08/15/21 08/15/21 Enoxaparin [Lovenox] 40 mg SQ DAILY 08/15/21 08/15/21 Previous Rx's Medication Instructions Recorded Diphenoxylate HCl/Atropine 1 tab PO TID PRN #9 tab 06/14/21 [Lomotil 2.5-0.025 mg Tablet] Allergies Allergy/AdvReac Type Severity Reaction Status Date / Time No Known Allergies Allergy Verified 08/15/21 19:37 Review of Systems ROS Statement: Those systems with pertinent positive or pertinent negative responses have been documented in the HPI. ROS Other: All systems not noted in ROS Statement are negative. Past Medical History Past Medical History: Diabetes Mellitus, Hypertension, Thyroid Disorder Additional Past Medical History / Comment(s): POOR HISTORIAN. 06/11 pt states she remembers being told as a kid that she had a heart murmur History of Any Multi-Drug Resistant Organisms: None Reported Past Surgical History: Cholecystectomy, Orthopedic Surgery Additional Past Surgical History / Comment(s): POOR HISTORIAN Past Anesthesia/Blood Transfusion Reactions: No Reported Reaction Past Psychological History: No Psychological Hx Reported Smoking Status: Never smoker Past Alcohol Use History: Daily Past Drug Use History: None Reported - Past Family History Mother Family Medical History: Cancer General Exam Limitations: no limitations General appearance: alert, in no apparent distress, other (fatigued. dry heaving) Head exam: Present: atraumatic, normocephalic, normal inspection Eye exam: Present: normal appearance, PERRL, EOMI. Absent: scleral icterus, conjunctival injection, periorbital swelling ENT exam: Present: normal exam, mucous membranes moist Neck exam: Present: normal inspection. Absent: tenderness, meningismus, lymphadenopathy Respiratory exam: Present: normal lung sounds bilaterally. Absent: respiratory distress, wheezes, rales, rhonchi, stridor Cardiovascular Exam: Present: regular rate, normal rhythm, normal heart sounds. Absent: systolic murmur, diastolic murmur, rubs, gallop, clicks GI/Abdominal exam: Present: soft, normal bowel sounds. Absent: distended, tenderness, guarding, rebound, rigid Extremities exam: Present: normal inspection, full ROM, normal capillary refill. Absent: tenderness, pedal edema, joint swelling, calf tenderness Back exam: Present: normal inspection Neurological exam: Present: alert, oriented X3, CN II-XII intact Psychiatric exam: Present: normal affect, normal mood Skin exam: Present: warm, dry, intact, normal color. Absent: rash Course Vital Signs 08/15/21 08/15/21 08/15/21 16:22 17:23 19:08 Temperature 101.5 F H 98.7 F Pulse Rate 85 85 81 Pulse Rate [ Pulse Oximetery ] Respiratory 18 18 18 Rate Blood Pressure 157/119 144/89 144/69 Blood Pressure [Left Arm] O2 Sat by Pulse 97 96 96 Oximetry 08/15/21 20:00 Temperature 98.3 F Pulse Rate Pulse Rate [ 84 Pulse Oximetery ] Respiratory 18 Rate Blood Pressure Blood Pressure 126/64 [Left Arm] O2 Sat by Pulse 98 Oximetry Medical Decision Making - Medical Decision Making Upon arrival patient was placed into room 5. There are history and physical exam is performed. She continues to dry heave and therefore she is given Reglan and Benadryl. Laboratory studies are conducted. Demonstrate a white count of 15.7. Potassium 3.4. Sodium 134. Urinalysis demonstrates large leukocyte esterase, greater than 182 white blood cells, many white blood cell clumps and many bacteria. Covid and influenza are not detected. Chest x-ray demonstrates no acute process. Recommended admission for antibiotics for which the patient did agree to. Spoke with who agreed to admit the patient. Taking to the floor in stable condition - Lab Data Result diagrams: 08/19/21 06:00 08/19/21 06:00 Lab Results 08/15/21 08/15/21 08/15/21 Range/Units 17:02 17:02 17:02 WBC 15.7 H (3.8-10.6) k/uL RBC 3.12 L (3.80-5.40) m/uL Hgb 9.7 L (11.4-16.0) gm/dL Hct 29.3 L (34.0-46.0) % MCV 94.2 D (80.0-100.0) fL MCH 31.2 (25.0-35.0) pg MCHC 33.2 (31.0-37.0) g/dL RDW 14.1 (11.5-15.5) % Plt Count 548 H D (150-450) k/uL MPV 7.5 Immature Gran % (Auto) % Absolute Nucleated RBC (0.00-0.00) X 10*3/uL Neutrophils % 81 % Lymphocytes % 10 % Monocytes % 6 % Eosinophils % 2 % Basophils % 0 % Immature Gran # (0.00-0.04) X 10*3/uL Neutrophils # 12.8 H (1.3-7.7) k/uL Lymphocytes # 1.5 (1.0-4.8) k/uL Monocytes # 0.9 (0-1.0) k/uL Eosinophils # 0.2 (0-0.7) k/uL Basophils # 0.0 (0-0.2) k/uL NRBC/100 WBC Diff (0.0-0.0) /100 WBCS PT (9.0-12.0) sec INR (<1.2) APTT (22.0-30.0) sec Sodium 134 L (137-145) mmol/L Potassium 3.4 L (3.5-5.1) mmol/L Chloride 102 (98-107) mmol/L Carbon Dioxide 21 L (22-30) mmol/L Anion Gap 11 mmol/L BUN 19 H (7-17) mg/dL Creatinine 0.71 (0.52-1.04) mg/dL Est GFR (CKD-EPI)AfAm >90 (>60 ml/min/1.73 sqM) Est GFR (CKD-EPI)NonAf 79 (>60 ml/min/1.73 sqM) BUN/Creatinine Ratio (12.00-20.00) Ratio Glucose 144 H (74-99) mg/dL POC Glucose (mg/dL) (70-110) mg/dL POC Glu Fence Machine Operator ID Plasma Lactic Acid Ziyad (0.7-2.0) mmol/L Calcium 8.4 (8.4-10.2) mg/dL Total Bilirubin 0.6 (0.2-1.3) mg/dL AST 30 (14-36) U/L ALT 17 (4-34) U/L Alkaline Phosphatase 131 H (38-126) U/L Troponin I 0.017 (0.000-0.034) ng/mL Total Protein 6.1 L (6.3-8.2) g/dL Albumin 3.1 L (3.5-5.0) g/dL Lipase 24 (23-300) U/L Urine Color Urine Appearance (Clear) Urine pH (5.0-8.0) Ur Specific [place] (1.001-1.035) Urine Protein (Negative) Urine Glucose (UA) (Negative) Urine Ketones (Negative) Urine Blood (Negative) Urine Nitrite (Negative) Urine Bilirubin (Negative) Urine Urobilinogen (<2.0) mg/dL Ur Leukocyte Esterase (Negative) Urine RBC (0-5) /hpf Urine WBC (0-5) /hpf Urine WBC Clumps (None) /hpf Urine Bacteria (None) /hpf Hyaline Casts (0-2) /lpf Urine Mucus (None) /hpf Coronavirus (PCR) (Not Detectd) Influenza Type A RNA (Not Detectd) Influenza Type B (PCR) (Not Detectd) 08/15/21 08/15/21 08/15/21 Range/Units 17:02 17:02 17:02 WBC (3.8-10.6) k/uL RBC (3.80-5.40) m/uL Hgb (11.4-16.0) gm/dL Hct (34.0-46.0) % MCV (80.0-100.0) fL MCH (25.0-35.0) pg MCHC (31.0-37.0) g/dL RDW (11.5-15.5) % Plt Count (150-450) k/uL MPV Immature Gran % (Auto) % Absolute Nucleated RBC (0.00-0.00) X 10*3/uL Neutrophils % % Lymphocytes % % Monocytes % % Eosinophils % % Basophils % % Immature Gran # (0.00-0.04) X 10*3/uL Neutrophils # (1.3-7.7) k/uL Lymphocytes # (1.0-4.8) k/uL Monocytes # (0-1.0) k/uL Eosinophils # (0-0.7) k/uL Basophils # (0-0.2) k/uL NRBC/100 WBC Diff (0.0-0.0) /100 WBCS PT 11.4 (9.0-12.0) sec INR 1.1 (<1.2) APTT 24.3 (22.0-30.0) sec Sodium (137-145) mmol/L Potassium (3.5-5.1) mmol/L Chloride (98-107) mmol/L Carbon Dioxide (22-30) mmol/L Anion Gap mmol/L BUN (7-17) mg/dL Creatinine (0.52-1.04) mg/dL Est GFR (CKD-EPI)AfAm (>60 ml/min/1.73 sqM) Est GFR (CKD-EPI)NonAf (>60 ml/min/1.73 sqM) BUN/Creatinine Ratio (12.00-20.00) Ratio Glucose (74-99) mg/dL POC Glucose (mg/dL) (70-110) mg/dL POC Glu Fence Machine Operator ID Plasma Lactic Acid Ziyad 1.4 (0.7-2.0) mmol/L Calcium (8.4-10.2) mg/dL Total Bilirubin (0.2-1.3) mg/dL AST (14-36) U/L ALT (4-34) U/L Alkaline Phosphatase (38-126) U/L Troponin I (0.000-0.034) ng/mL Total Protein (6.3-8.2) g/dL Albumin (3.5-5.0) g/dL Lipase (23-300) U/L Urine Color Urine Appearance (Clear) Urine pH (5.0-8.0) Ur Specific [place] (1.001-1.035) Urine Protein (Negative) Urine Glucose (UA) (Negative) Urine Ketones (Negative) Urine Blood (Negative) Urine Nitrite (Negative) Urine Bilirubin (Negative) Urine Urobilinogen (<2.0) mg/dL Ur Leukocyte Esterase (Negative) Urine RBC (0-5) /hpf Urine WBC (0-5) /hpf Urine WBC Clumps (None) /hpf Urine Bacteria (None) /hpf Hyaline Casts (0-2) /lpf Urine Mucus (None) /hpf Coronavirus (PCR) (Not Detectd) Influenza Type A RNA Not Detected (Not Detectd) Influenza Type B (PCR) Not Detected (Not Detectd) 08/15/21 08/15/21 08/15/21 Range/Units 17:02 20:06 21:30 WBC (3.8-10.6) k/uL RBC (3.80-5.40) m/uL Hgb (11.4-16.0) gm/dL Hct (34.0-46.0) % MCV (80.0-100.0) fL MCH (25.0-35.0) pg MCHC (31.0-37.0) g/dL RDW (11.5-15.5) % Plt Count (150-450) k/uL MPV Immature Gran % (Auto) % Absolute Nucleated RBC (0.00-0.00) X 10*3/uL Neutrophils % % Lymphocytes % % Monocytes % % Eosinophils % % Basophils % % Immature Gran # (0.00-0.04) X 10*3/uL Neutrophils # (1.3-7.7) k/uL Lymphocytes # (1.0-4.8) k/uL Monocytes # (0-1.0) k/uL Eosinophils # (0-0.7) k/uL Basophils # (0-0.2) k/uL NRBC/100 WBC Diff (0.0-0.0) /100 WBCS PT (9.0-12.0) sec INR (<1.2) APTT (22.0-30.0) sec Sodium (137-145) mmol/L Potassium (3.5-5.1) mmol/L Chloride (98-107) mmol/L Carbon Dioxide (22-30) mmol/L Anion Gap mmol/L BUN (7-17) mg/dL Creatinine (0.52-1.04) mg/dL Est GFR (CKD-EPI)AfAm (>60 ml/min/1.73 sqM) Est GFR (CKD-EPI)NonAf (>60 ml/min/1.73 sqM) BUN/Creatinine Ratio (12.00-20.00) Ratio Glucose (74-99) mg/dL POC Glucose (mg/dL) 140 H (70-110) mg/dL POC Glu Fence Machine Operator ID Bright Carrero Plasma Lactic Acid Ziyad (0.7-2.0) mmol/L Calcium (8.4-10.2) mg/dL Total Bilirubin (0.2-1.3) mg/dL AST (14-36) U/L ALT (4-34) U/L Alkaline Phosphatase (38-126) U/L Troponin I (0.000-0.034) ng/mL Total Protein (6.3-8.2) g/dL Albumin (3.5-5.0) g/dL Lipase (23-300) U/L Urine Color Yellow Urine Appearance Cloudy H (Clear) Urine pH 5.5 (5.0-8.0) Ur Specific [place] 1.014 (1.001-1.035) Urine Protein 1+ H (Negative) Urine Glucose (UA) Negative (Negative) Urine Ketones 1+ H (Negative) Urine Blood Trace H (Negative) Urine Nitrite Negative (Negative) Urine Bilirubin Negative (Negative) Urine Urobilinogen <2.0 (<2.0) mg/dL Ur Leukocyte Esterase Large H (Negative) Urine RBC 3 (0-5) /hpf Urine WBC >182 H (0-5) /hpf Urine WBC Clumps Many H (None) /hpf Urine Bacteria Many H (None) /hpf Hyaline Casts 10 H (0-2) /lpf Urine Mucus Rare H (None) /hpf Coronavirus (PCR) Not Detected (Not Detectd) Influenza Type A RNA (Not Detectd) Influenza Type B (PCR) (Not Detectd) 08/16/21 08/16/21 08/16/21 Range/Units 06:00 06:00 07:04 WBC 15.51 H (3.8-10.6) k/uL RBC 2.58 L (3.80-5.40) m/uL Hgb 7.7 L (11.4-16.0) gm/dL Hct 24.7 L (34.0-46.0) % MCV 95.7 (80.0-100.0) fL MCH 29.8 (25.0-35.0) pg MCHC 31.2 L (31.0-37.0) g/dL RDW 14.6 H (11.5-15.5) % Plt Count 401 (150-450) k/uL MPV 10.1 Immature Gran % (Auto) 0.5 % Absolute Nucleated RBC 0 (0.00-0.00) X 10*3/uL Neutrophils % 80.7 % Lymphocytes % 9.7 % Monocytes % 9.0 % Eosinophils % 0 % Basophils % 0.1 % Immature Gran # 0.08 H (0.00-0.04) X 10*3/uL Neutrophils # 12.52 H (1.3-7.7) k/uL Lymphocytes # 1.50 (1.0-4.8) k/uL Monocytes # 1.39 H (0-1.0) k/uL Eosinophils # 0 L (0-0.7) k/uL Basophils # 0.02 (0-0.2) k/uL NRBC/100 WBC Diff 0 (0.0-0.0) /100 WBCS PT (9.0-12.0) sec INR (<1.2) APTT (22.0-30.0) sec Sodium 144 (137-145) mmol/L Potassium 3.6 (3.5-5.1) mmol/L Chloride 114 H (98-107) mmol/L Carbon Dioxide 18.6 L (22-30) mmol/L Anion Gap 11.70 mmol/L BUN 16.5 (7-17) mg/dL Creatinine 0.9 (0.52-1.04) mg/dL Est GFR (CKD-EPI)AfAm 72.9 (>60 ml/min/1.73 sqM) Est GFR (CKD-EPI)NonAf 62.9 (>60 ml/min/1.73 sqM) BUN/Creatinine Ratio 19.41 (12.00-20.00) Ratio Glucose 138 H (74-99) mg/dL POC Glucose (mg/dL) 127 H (70-110) mg/dL POC Glu Fence Machine Operator Amna Pandey Plasma Lactic Acid Ziyad (0.7-2.0) mmol/L Calcium 7.7 L (8.4-10.2) mg/dL Total Bilirubin (0.2-1.3) mg/dL AST (14-36) U/L ALT (4-34) U/L Alkaline Phosphatase (38-126) U/L Troponin I (0.000-0.034) ng/mL Total Protein (6.3-8.2) g/dL Albumin (3.5-5.0) g/dL Lipase (23-300) U/L Urine Color Urine Appearance (Clear) Urine pH (5.0-8.0) Ur Specific [place] (1.001-1.035) Urine Protein (Negative) Urine Glucose (UA) (Negative) Urine Ketones (Negative) Urine Blood (Negative) Urine Nitrite (Negative) Urine Bilirubin (Negative) Urine Urobilinogen (<2.0) mg/dL Ur Leukocyte Esterase (Negative) Urine RBC (0-5) /hpf Urine WBC (0-5) /hpf Urine WBC Clumps (None) /hpf Urine Bacteria (None) /hpf Hyaline Casts (0-2) /lpf Urine Mucus (None) /hpf Coronavirus (PCR) (Not Detectd) Influenza Type A RNA (Not Detectd) Influenza Type B (PCR) (Not Detectd) Disposition Clinical Impression: Nausea & vomiting, Diarrhea, Pyrexia, Leukocytosis, Hyponatremia Disposition: ADMITTED IP TO THIS HOSP Condition: Stable Is patient prescribed a controlled substance at d/c from ED?: No Time of Disposition: 18:50 Decision to Admit Reason: Admit from EC Decision Date: 08/15/21 Decision Time: 18:50
[2021-08-15 17:18] LABS: Basophils % (A) 0 %; Eosinophils # (A) 0.2 k/uL (0-0.7); Eosinophils % (A) 2 %; HCT 29.3 % (34.0-46.0); HGB 9.7 gm/dL (11.4-16.0); Lymphocytes # (A) 1.5 k/uL (1.0-4.8); Lymphocytes % (A) 10 %; MCH 31.2 pg (25.0-35.0); MCHC 33.2 g/dL (31.0-37.0); Mean Platelet Volume 7.5; Monocytes # (A) 0.9 k/uL (0-1.0); Monocytes % (A) 6 %; Neutrophils # (A) 12.8 k/uL (1.3-7.7); Neutrophils % (A) 81 %; RBC 3.12 m/uL (3.80-5.40); RDW 14.1 % (11.5-15.5); WBC 15.7 k/uL (3.8-10.6)
[2021-08-15 17:23] LABS: MCV 94.2 fL (80.0-100.0); Platelet Count 548 k/uL (150-450)
[2021-08-15 17:30] LABS: ALT 17 U/L (4-34); AST 30 U/L (14-36); African American GFR (CKD) >90 (>60 ml/min/1.73 sqM); Albumin 3.1 g/dL (3.5-5.0); Alkaline Phosphatase 131 U/L (38-126); Anion Gap 11 mmol/L; Blood Urea Nitrogen 19 mg/dL (7-17); Calcium 8.4 mg/dL (8.4-10.2); Carbon Dioxide 21 mmol/L (22-30); Chloride 102 mmol/L (98-107); Glucose 144 mg/dL (74-99); INR 1.1 (<1.2); Lipase 24 U/L (23-300); Non-African American GFR(CKD) 79 (>60 ml/min/1.73 sqM); Partial Thromboplastin Time 24.3 sec (22.0-30.0); Potassium 3.4 mmol/L (3.5-5.1); Prothrombin Time 11.4 sec (9.0-12.0); Sodium 134 mmol/L (137-145); Total Bilirubin 0.6 mg/dL (0.2-1.3); Total Protein 6.1 g/dL (6.3-8.2)
--- NOTE | 2021-08-15 18:21 | XR ---
EXAMINATION TYPE: XR chest 2V DATE OF EXAM: 08/15/2021 COMPARISON: 06/08/2021 HISTORY: Chest pain TECHNIQUE: 2 views FINDINGS: Heart and mediastinum are normal. Lungs are clear. Diaphragm is normal. There is 50% wedgin g of T6 vertebra. There is also wedging of T8 30%. There is mild thoracic kyphosis. IMPRESSION: No active cardiopulmonary disease. No adverse change.
[2021-08-15] MEDS ORDERED: cefTRIAXone IN SWFI 1,000 MG/10 ML SYRINGE IVP STA (18:45)
[2021-08-15] MEDS ORDERED: POTASSIUM CHLORIDE ER 20 MEQ TAB.ER PO STA (18:48)
[2021-08-15] MEDS ORDERED: NALOXONE 0.4 MG/ML 1 ML VIAL IV PRN (18:50)
[2021-08-15] MEDS ORDERED: ACETAMINOPHEN TAB 325 MG TAB PO PRN (18:50)
[2021-08-15 20:30] LABS: Appearance,Urine Cloudy (Clear); Bacteria,Urine Many /hpf; Bilirubin,Urine Negative (Negative); Blood,Urine Trace (Negative); Color,Urine Yellow; Glucose,Urine (UA) Negative (Negative); Hyaline Casts,Urine 10 /lpf (0-2); Ketones,Urine 1+ (Negative); Leukocyte Esterase,Urine Large (Negative); Mucus,Urine Rare /hpf; Nitrite,Urine Negative (Negative); PH, Urine 5.5 (5.0-8.0); Protein,Urine 1+ (Negative); RBC,Urine 3 /hpf (0-5); Specific Gravity,Urine 1.014 (1.001-1.035); Urobilinogen,Urine <2.0 mg/dL (<2.0); WBC,Urine >182 /hpf (0-5)
[2021-08-15] MEDS ORDERED: LISINOPRIL-HCTZ 20-25 MG 1 EACH TAB PO SCH (20:45)
--- NOTE | 2021-08-15 20:46 | P.HPIM ---
History of Present Illness H&P Date: 08/15/21 The patient is an 86-year-old female with a PMH of type II DM, hypertension, hyperlipidemia, recent hospitalization for fall and pubic ramus fracture, with a discharge to subacute rehab who now presented to the emergency room with complaints of diarrhea and fever. History supplemented by the daughter at the bedside. The patient reports that she began having diarrhea while at [facility] roughly 2 weeks ago. She then continued to have persistent diarrhea following discharge from [facility]. She reports no hematochezia or melena. Her diarrhea resolved yesterday but the then developed shaking chills. Earlier today, the patient had an episode of rigors lasting for 10 seconds witnessed by her daughter. The daughter was concerned for possible seizure activity but states that patient was coherent and conversational the entire time with no reports of tongue bites or urinary incontinence. She subsequently activated EMS who upon arrival found the patient to be febrile. The patient reports ocassional dysuria without abdominal pain over the past 2-3 days. She also reports nausea without vomiting throughout the day today. Denied experiencing headache or neck pain. Denied chest pain, SOB, or cough. The patient's laboratory evaluation in the emergency room was remarkable for UA consistent with UTI, K of 3.4, and WBC count of 15.7. The paient was febrile with T max of 101.5. Chest x-ray in the emergency room was unremarkable. Review of systems: Pertinent positives and negatives as discussed in HPI, a complete review of systems was performed and all other systems are negative. Physical examination: General: non toxic, no distress, appears at stated age, normal weight Derm: no unusual rashes/lesions, warm Head: atraumatic, normocephalic, symmetric Eyes: EOMI, no lid lag, anicteric sclera, pupils equal round reactive to light ENT: Nose and ears atraumatic Neck: No cervical lymphadenopathy, trachea midline, supple Mouth: no lip lesion, mucus membranes moist Cardiovascular: S1S2 reg, no murmur, positive dorsalis pedis pulse bilateral, no edema Lungs: CTA bilateral, no rhonchi, no rales, no accessory muscle use Abdominal: soft, nontender to palpation, no guarding Ext: muscle strength 5 out of 5 in all 4 extremities grossly, no gross muscle atrophy, no contractures, Neuro: CN II-XI grossly intact, no gross focal neuro deficits Psych: Alert, oriented, appropriate affect Assessment/plan Sepsis secondary to UTI -Continue with IV antibiotics -IVFs -Follow up blood and urine cultures Hypokalemia -Replace and monitor Thrombocytosis, may be due to ongoing infection -Monitor for now Diarrhea -Resolved with last BM yesterday Chronic conditions: Hypertension, hyperlipidemia, type II DM -Continue with home meds DVT prophylaxis -Heparin subcu The patient is admitted with an anticipated greater than 2 midnight stay for evaluation of UTI sepsis. CODE STATUS: Full Code Discussed with: Patient Anticipated discharge date: 2 to [address]: Home Past Medical History Past Medical History: Diabetes Mellitus, Hypertension, Thyroid Disorder Additional Past Medical History / Comment(s): POOR HISTORIAN. 06/11 pt states she remembers being told as a kid that she had a heart murmur History of Any Multi-Drug Resistant Organisms: None Reported Past Surgical History: Cholecystectomy, Orthopedic Surgery Additional Past Surgical History / Comment(s): POOR HISTORIAN Past Anesthesia/Blood Transfusion Reactions: No Reported Reaction Past Psychological History: No Psychological Hx Reported Smoking Status: Never smoker Past Alcohol Use History: Daily Past Drug Use History: None Reported - Past Family History Mother Family Medical History: Cancer Medications and Allergies Home Medications Medication Instructions Recorded Confirmed Type Aspirin EC [Ecotrin Low Dose] 81 mg PO DAILY 06/08/21 08/15/21 History Atorvastatin Calcium [Lipitor] 80 mg PO HS 06/08/21 08/15/21 History Cholecalciferol [Vitamin D3 (25 25 mcg PO DAILY 06/08/21 08/15/21 History Mcg = 1000 Iu)] DULoxetine HCL [Cymbalta] 30 mg PO DAILY 06/08/21 08/15/21 History Levothyroxine Sodium [Synthroid] 50 mcg PO HS 06/08/21 08/15/21 History Lisinopril-Hctz 20-25 mg 1 tab PO DIRECTED 06/08/21 08/15/21 History [Zestoretic 20-25] Metoprolol Tartrate [Lopressor] 50 mg PO BID 06/08/21 08/15/21 History Multivitamins, Thera [Multivitamin 1 tab PO DAILY 06/08/21 08/15/21 History (formulary)] [place]-3 Fatty Acids/Fish Oil [Fish 1 cap PO HS 06/08/21 08/15/21 History Oil 1,000 mg Softgel] Pioglitazone [Actos] 45 mg PO DAILY 06/08/21 08/15/21 History Raloxifene HCl 60 mg PO DAILY 06/08/21 08/15/21 History glipiZIDE [Glucotrol] 10 mg PO DAILY 06/08/21 08/15/21 History Diphenoxylate HCl/Atropine 1 tab PO TID PRN #9 tab 06/14/21 08/15/21 Rx [Lomotil 2.5-0.025 mg Tablet] Calcium Carbonate [Calcium] 600 mg PO DAILY 08/15/21 08/15/21 History Enoxaparin [Lovenox] 40 mg SQ DAILY 08/15/21 08/15/21 History Allergies Allergy/AdvReac Type Severity Reaction Status Date / Time No Known Allergies Allergy Verified 08/15/21 19:37 Physical Exam Vitals: Vital Signs Temp Pulse Resp BP Pulse Ox 08/15/21 19:08 98.7 F 81 18 144/69 96 08/15/21 17:23 85 18 144/89 96 08/15/21 16:22 101.5 F H 85 18 157/119 97 Intake and Output 08/15/21 08/15/21 08/15/21 06:59 14:59 22:59 Other: Weight 59.874 kg Results CBC & Chem 7: 08/15/21 17:02 08/15/21 17:02 Labs: Abnormal Lab Results - Last 24 Hours (Table) 08/15/21 08/15/21 08/15/21 Range/Units 17:02 17:02 20:06 WBC 15.7 H (3.8-10.6) k/uL RBC 3.12 L (3.80-5.40) m/uL Hgb 9.7 L (11.4-16.0) gm/dL Hct 29.3 L (34.0-46.0) % Plt Count 548 H D (150-450) k/uL Neutrophils # 12.8 H (1.3-7.7) k/uL Sodium 134 L (137-145) mmol/L Potassium 3.4 L (3.5-5.1) mmol/L Carbon Dioxide 21 L (22-30) mmol/L BUN 19 H (7-17) mg/dL Glucose 144 H (74-99) mg/dL Alkaline Phosphatase 131 H (38-126) U/L Total Protein 6.1 L (6.3-8.2) g/dL Albumin 3.1 L (3.5-5.0) g/dL Urine Appearance Cloudy H (Clear) Urine Protein 1+ H (Negative) Urine Ketones 1+ H (Negative) Urine Blood Trace H (Negative) Ur Leukocyte Esterase Large H (Negative) Urine WBC >182 H (0-5) /hpf Urine WBC Clumps Many H (None) /hpf Urine Bacteria Many H (None) /hpf Hyaline Casts 10 H (0-2) /lpf Urine Mucus Rare H (None) /hpf
[2021-08-15] MEDS: SODIUM CHLORIDE 0.9% 1,000 ML IV SCH (21:24)
[2021-08-15 21:32] LABS: Glucose,Whole Blood 140 mg/dL (70-110)
[2021-08-15] MEDS: LEVOTHYROXINE 50 MCG TAB PO SCH (21:34)
[2021-08-15] MEDS: METOPROLOL TARTRATE 50 MG TAB PO SCH (21:34)
[2021-08-15] MEDS: ATORVASTATIN 80 MG TAB PO SCH (21:34)
[2021-08-15] MEDS: PANTOPRAZOLE 40 MG/10 ML VIAL IV SCH (21:34)
[2021-08-16] MEDS: HEPARIN SODIUM,PORCINE/PF 5,000 UNIT/0.5 ML SYRINGE SQ SCH ×4 (01:03→23:07)
[2021-08-16] MEDS: SODIUM CHLORIDE 0.9% 1,000 ML IV SCH ×3 (05:18→19:58)
[2021-08-16 07:05] LABS: Glucose,Whole Blood 127 mg/dL (70-110)
[2021-08-16] MEDS: ASPIRIN 81 MG PO SCH (08:41)
[2021-08-16] MEDS: PANTOPRAZOLE 40 MG/10 ML VIAL IV SCH (08:41)
[2021-08-16] MEDS: METOPROLOL TARTRATE 50 MG TAB PO SCH ×2 (08:41→20:01)
[2021-08-16 09:26] LABS: Basophils # (A) 0.02 X 10*3/uL (0.00-0.10); Basophils % (A) 0.1 %; Eosinophils # (A) 0 X 10*3/uL (0.04-0.35); Eosinophils % (A) 0 %; HCT 24.7 % (37.2-46.3); HGB 7.7 g/dL (12.0-15.0); Immature Grans, Automated 0.5 %; Lymphocytes % (A) 9.7 %; MCH 29.8 pg (27.0-32.0); MCHC 31.2 g/dL (32.0-37.0); MCV 95.7 fL (80.0-97.0); Mean Platelet Volume 10.1 fL (9.5-12.2); Monocytes # (A) 1.39 X 10*3/uL (0.20-1.00); NRBC Per 100 WBC 0 /100 WBCS (0.0-0.0); Neutrophils # (A) 12.52 X 10*3/uL (1.80-7.70); Neutrophils % (A) 80.7 %; Platelet Count 401 X 10*3/uL (140-440); RBC 2.58 X 10*6/uL (4.10-5.20); RDW 14.6 % (11.5-14.5); WBC 15.51 X 10*3/uL (4.50-10.00)
[2021-08-16 09:34] LABS: African American GFR (CKD) 72.9 (60.0-200.0); Anion Gap 11.7 mmol/L (10.00-18.00); BUN/Creat Ratio 19.41 Ratio (12.00-20.00); Blood Urea Nitrogen 16.5 mg/dL (9.0-27.0); Calcium 7.7 mg/dL (8.7-10.3); Carbon Dioxide 18.6 mmol/L (20.0-27.5); Non-African American GFR(CKD) 62.9 (60.0-200.0); Potassium 3.6 mmol/L (3.5-5.5)
--- NOTE | 2021-08-16 09:53 | P.PN ---
Subjective Progress Note Date: 08/16/21 No new complaints. BCx growing GNRs. Gen: awake, alert HEENT: normocephalic, atraumatic, good hearing acuity, moist mucous membranes Resp: good air exchange, breathing comfortably with no accessory muscle use CVS: good distal perfusion x 4, GI: soft, NTTP, ND : Positive SPT, right-sided CVAT, vargas catheter not present MSK: no pitting edema, no clubbing Neuro: non-focal, moving all extremities Psych: cooperative, euthymic mood Assessment/plan: Sepsis secondary to UTI -Continue with IV antibiotics -IVFs -Follow up blood and urine cultures Hypokalemia -Replace and monitor Thrombocytosis, may be due to ongoing infection -Monitor for now Diarrhea -Resolved with last BM yesterday Chronic conditions: Hypertension, hyperlipidemia, type II DM -Continue with home meds DVT prophylaxis -Heparin subcu The patient is admitted with an anticipated greater than 2 midnight stay for evaluation of UTI sepsis. CODE STATUS: Full Code Discussed with: Patient Anticipated discharge date: 2 to [address]: Home Objective - Vital Signs Vital signs: Vital Signs Temp 98.2 F 08/16/21 07:00 Pulse 79 08/16/21 07:00 Resp 17 08/16/21 07:00 BP 120/55 08/16/21 07:00 Pulse Ox 97 08/16/21 07:00 FiO2 Intake & Output 08/15/21 08/16/21 08/16/21 18:59 06:59 18:59 Intake Total 118 Balance 118 Weight 59.874 kg 59.874 kg Intake: Oral 118 Other: Voiding Method Bedside Commode Diaper # Voids 1 - Labs CBC & Chem 7: 08/16/21 06:00 08/16/21 06:00 Labs: Abnormal Lab Results - Last 24 Hours (Table) 08/15/21 08/15/21 08/15/21 Range/Units 17:02 17:02 20:06 WBC 15.7 H (3.8-10.6) k/uL RBC 3.12 L (3.80-5.40) m/uL Hgb 9.7 L (11.4-16.0) gm/dL Hct 29.3 L (34.0-46.0) % MCHC (32.0-37.0) g/dL RDW (11.5-14.5) % Plt Count 548 H D (150-450) k/uL Immature Gran # (0.00-0.04) X 10*3/uL Neutrophils # 12.8 H (1.3-7.7) k/uL Monocytes # (0.20-1.00) X 10*3/uL Eosinophils # (0.04-0.35) X 10*3/uL Sodium 134 L (137-145) mmol/L Potassium 3.4 L (3.5-5.1) mmol/L Chloride (96-109) mmol/L Carbon Dioxide 21 L (22-30) mmol/L BUN 19 H (7-17) mg/dL Glucose 144 H (74-99) mg/dL POC Glucose (mg/dL) (70-110) mg/dL Calcium (8.7-10.3) mg/dL Alkaline Phosphatase 131 H (38-126) U/L Total Protein 6.1 L (6.3-8.2) g/dL Albumin 3.1 L (3.5-5.0) g/dL Urine Appearance Cloudy H (Clear) Urine Protein 1+ H (Negative) Urine Ketones 1+ H (Negative) Urine Blood Trace H (Negative) Ur Leukocyte Esterase Large H (Negative) Urine WBC >182 H (0-5) /hpf Urine WBC Clumps Many H (None) /hpf Urine Bacteria Many H (None) /hpf Hyaline Casts 10 H (0-2) /lpf Urine Mucus Rare H (None) /hpf 08/15/21 08/16/21 08/16/21 Range/Units 21:30 06:00 06:00 WBC 15.51 H (3.8-10.6) k/uL RBC 2.58 L (3.80-5.40) m/uL Hgb 7.7 L (11.4-16.0) gm/dL Hct 24.7 L (34.0-46.0) % MCHC 31.2 L (32.0-37.0) g/dL RDW 14.6 H (11.5-14.5) % Plt Count (150-450) k/uL Immature Gran # 0.08 H (0.00-0.04) X 10*3/uL Neutrophils # 12.52 H (1.3-7.7) k/uL Monocytes # 1.39 H (0.20-1.00) X 10*3/uL Eosinophils # 0 L (0.04-0.35) X 10*3/uL Sodium (137-145) mmol/L Potassium (3.5-5.1) mmol/L Chloride 114 H (96-109) mmol/L Carbon Dioxide 18.6 L (22-30) mmol/L BUN (7-17) mg/dL Glucose 138 H (74-99) mg/dL POC Glucose (mg/dL) 140 H (70-110) mg/dL Calcium 7.7 L (8.7-10.3) mg/dL Alkaline Phosphatase (38-126) U/L Total Protein (6.3-8.2) g/dL Albumin (3.5-5.0) g/dL Urine Appearance (Clear) Urine Protein (Negative) Urine Ketones (Negative) Urine Blood (Negative) Ur Leukocyte Esterase (Negative) Urine WBC (0-5) /hpf Urine WBC Clumps (None) /hpf Urine Bacteria (None) /hpf Hyaline Casts (0-2) /lpf Urine Mucus (None) /hpf 08/16/21 Range/Units 07:04 WBC (3.8-10.6) k/uL RBC (3.80-5.40) m/uL Hgb (11.4-16.0) gm/dL Hct (34.0-46.0) % MCHC (32.0-37.0) g/dL RDW (11.5-14.5) % Plt Count (150-450) k/uL Immature Gran # (0.00-0.04) X 10*3/uL Neutrophils # (1.3-7.7) k/uL Monocytes # (0.20-1.00) X 10*3/uL Eosinophils # (0.04-0.35) X 10*3/uL Sodium (137-145) mmol/L Potassium (3.5-5.1) mmol/L Chloride (96-109) mmol/L Carbon Dioxide (22-30) mmol/L BUN (7-17) mg/dL Glucose (74-99) mg/dL POC Glucose (mg/dL) 127 H (70-110) mg/dL Calcium (8.7-10.3) mg/dL Alkaline Phosphatase (38-126) U/L Total Protein (6.3-8.2) g/dL Albumin (3.5-5.0) g/dL Urine Appearance (Clear) Urine Protein (Negative) Urine Ketones (Negative) Urine Blood (Negative) Ur Leukocyte Esterase (Negative) Urine WBC (0-5) /hpf Urine WBC Clumps (None) /hpf Urine Bacteria (None) /hpf Hyaline Casts (0-2) /lpf Urine Mucus (None) /hpf Microbiology - Last 24 Hours (Table) 08/15/21 17:50 Blood Culture Gram Stain - Preliminary Blood 08/15/21 17:50 Blood Culture - Final Blood 08/15/21 20:06 Urine Culture - Preliminary Urine,Catheterized
[2021-08-16 12:29] LABS: Glucose,Whole Blood 164 mg/dL (70-110)
[2021-08-16 17:15] LABS: Glucose,Whole Blood 172 mg/dL (70-110)
[2021-08-16] MEDS: IBUPROFEN 400 MG TAB PO PRN ×2 (18:06→23:07)
[2021-08-16] MEDS: LEVOTHYROXINE 50 MCG TAB PO SCH (20:01)
[2021-08-16] MEDS: ATORVASTATIN 80 MG TAB PO SCH (20:01)
[2021-08-16 20:16] LABS: Glucose,Whole Blood 161 mg/dL (70-110)
[2021-08-17] MEDS: SODIUM CHLORIDE 0.9% 1,000 ML IV SCH ×3 (03:37→20:26)
[2021-08-17 07:20] LABS: Glucose,Whole Blood 102 mg/dL (70-110)
[2021-08-17] MEDS: HEPARIN SODIUM,PORCINE/PF 5,000 UNIT/0.5 ML SYRINGE SQ SCH ×2 (09:30→16:28)
[2021-08-17] MEDS: PANTOPRAZOLE 40 MG/10 ML VIAL IV SCH (09:30)
[2021-08-17] MEDS: ASPIRIN 81 MG PO SCH (09:30)
[2021-08-17] MEDS: METOPROLOL TARTRATE 50 MG TAB PO SCH ×2 (09:30→20:25)
[2021-08-17 11:52] LABS: Glucose,Whole Blood 166 mg/dL (70-110)
--- NOTE | 2021-08-17 12:59 | P.PN ---
Subjective Progress Note Date: 08/17/21 BCx growing e coli. Pt reports difficulty swallowing. Nutrition consult pending. ST ordered. Gen: awake, alert HEENT: normocephalic, atraumatic, good hearing acuity, moist mucous membranes Resp: good air exchange, breathing comfortably with no accessory muscle use CVS: good distal perfusion x 4, GI: soft, NTTP, ND : Positive SPT, right-sided CVAT, vargas catheter not present MSK: no pitting edema, no clubbing Neuro: non-focal, moving all extremities Psych: cooperative, euthymic mood Assessment/plan: Sepsis secondary to UTI -Continue with IV antibiotics -IVFs -Follow up blood and urine cultures Hypokalemia -Replace and monitor Thrombocytosis, may be due to ongoing infection -Monitor for now Diarrhea -positive lactoferrin --> outpatient GI referral. Chronic conditions: Hypertension, hyperlipidemia, type II DM -Continue with home meds DVT prophylaxis -Heparin subcu The patient is admitted with an anticipated greater than 2 midnight stay for evaluation of UTI sepsis. CODE STATUS: Full Code Discussed with: Patient Anticipated discharge date: 2 to [address]: Home Objective - Vital Signs Vital signs: Vital Signs Temp 97.5 F L 08/17/21 07:58 Pulse 76 08/17/21 07:58 Resp 18 08/17/21 09:34 BP 139/64 08/17/21 07:58 Pulse Ox 98 08/17/21 07:58 FiO2 Intake & Output 08/16/21 08/17/21 08/17/21 18:59 06:59 18:59 Intake Total 118 Balance 118 Intake: Oral 118 Other: Voiding Method Bedside Commode Bedside Commode Diaper Diaper # Voids 1 1 1 # Bowel Movements 1 1 1 - Labs CBC & Chem 7: 08/16/21 06:00 08/16/21 06:00 Labs: Abnormal Lab Results - Last 24 Hours (Table) 08/16/21 08/16/21 08/16/21 Range/Units 13:30 17:13 20:14 POC Glucose (mg/dL) 172 H 161 H (70-110) mg/dL Stool Lactoferrin POSITIVE A (NEGATIVE) 08/17/21 Range/Units 11:50 POC Glucose (mg/dL) 166 H (70-110) mg/dL Stool Lactoferrin (NEGATIVE) Microbiology - Last 24 Hours (Table) 08/15/21 20:06 Urine Culture - Preliminary Urine,Catheterized Gram Neg Bacilli 08/15/21 18:05 Blood Culture - Preliminary Blood No Growth after 24 hours 08/16/21 13:30 Stool Culture - Preliminary Stool 08/15/21 17:50 Blood Culture Gram Stain - Preliminary Blood Blood Culture - Preliminary Escherichia coli
[2021-08-17 16:51] LABS: Glucose,Whole Blood 179 mg/dL (70-110)
[2021-08-17 16:54] VITALS: BMI 24.1
[2021-08-17] MEDS: IBUPROFEN 400 MG TAB PO PRN (19:48)
[2021-08-17] MEDS: ATORVASTATIN 80 MG TAB PO SCH (20:25)
[2021-08-17] MEDS: LEVOTHYROXINE 50 MCG TAB PO SCH (20:25)
[2021-08-17 20:29] LABS: Glucose,Whole Blood 173 mg/dL (70-110)
[2021-08-18] MEDS: HEPARIN SODIUM,PORCINE/PF 5,000 UNIT/0.5 ML SYRINGE SQ SCH ×4 (00:37→23:48)
[2021-08-18 07:13] LABS: Glucose,Whole Blood 116 mg/dL (70-110)
[2021-08-18] MEDS: PANTOPRAZOLE 40 MG/10 ML VIAL IV SCH (08:45)
[2021-08-18] MEDS: METOPROLOL TARTRATE 50 MG TAB PO SCH ×2 (08:45→20:09)
[2021-08-18] MEDS: ASPIRIN 81 MG PO SCH (08:45)
[2021-08-18] MEDS: ERTAPENEM 1 GM in SODIUM CHLORIDE 0.9% 50 ML IVPB SCH (11:30)
[2021-08-18 11:48] LABS: Glucose,Whole Blood 149 mg/dL (70-110)
--- NOTE | 2021-08-18 12:34 | P.PN ---
Objective - Vital Signs Vital signs: Vital Signs Temp 98 F 08/18/21 07:40 Pulse 76 08/18/21 07:40 Resp 15 08/18/21 07:40 BP 137/75 08/18/21 07:40 Pulse Ox 99 08/18/21 07:40 FiO2 Intake & Output 08/17/21 08/18/21 08/18/21 18:59 06:59 18:59 Intake Total 50 Balance 50 Weight 59.874 kg Intake: Intake, IV Titration 50 Amount cefTRIAXone 2 gm In 50 Sodium Chloride 0.9% 50 ml @ 100 mls/hr IVPB Q24H [facility] Rx#:[id number] Other: Voiding Method Bedside Commode Bedside Commode Bedside Commode Diaper Diaper Diaper Incontinent Incontinent # Voids 1 1 1 # Bowel Movements 1 - Labs CBC & Chem 7: 08/16/21 06:00 08/16/21 06:00 Labs: Abnormal Lab Results - Last 24 Hours (Table) 08/17/21 08/17/21 08/18/21 Range/Units 16:47 20:27 07:10 POC Glucose (mg/dL) 179 H 173 H 116 H (70-110) mg/dL 08/18/21 Range/Units 11:47 POC Glucose (mg/dL) 149 H (70-110) mg/dL Microbiology - Last 24 Hours (Table) 08/15/21 17:50 Blood Culture Gram Stain - Final Blood Blood Culture - Final Escherichia coli 08/15/21 20:06 Urine Culture - Final Urine,Catheterized Escherichia coli 08/15/21 18:05 Blood Culture - Preliminary Blood No Growth after 48 hours Assessment and Plan Plan: Sepsis secondary to UTI Gram negative bactermia with ESBL -D w ID, will d/c ceftriaxone and start ertapenem -IVFs Hypokalemia -Replace and monitor Thrombocytosis, may be due to ongoing infection -Monitor for now Diarrhea -Resolved, likely sec to UTI Chronic conditions: Hypertension, hyperlipidemia, type II DM -Continue with home meds General weakness: PT/OT DVT prophylaxis -Heparin subcu CODE STATUS: Full Code Discussed with: Patient Anticipated discharge date: 1-[address]: Home
[2021-08-18 14:14] LABS: Basophils % (A) 0 %; Eosinophils # (A) 0.1 k/uL (0-0.7); Eosinophils % (A) 1 %; HCT 27.5 % (34.0-46.0); HGB 8.9 gm/dL (11.4-16.0); Hypochromasia Slight; Lymphocytes % (A) 11 %; MCH 31.3 pg (25.0-35.0); MCHC 32.5 g/dL (31.0-37.0); MCV 96.4 fL (80.0-100.0); Mean Platelet Volume 8.3; Monocytes # (A) 0.6 k/uL (0-1.0); Monocytes % (A) 6 %; Neutrophils # (A) 7.1 k/uL (1.3-7.7); Neutrophils % (A) 80 %; Platelet Count 372 k/uL (150-450); RBC 2.85 m/uL (3.80-5.40); RDW 14.4 % (11.5-15.5); WBC 8.9 k/uL (3.8-10.6)
[2021-08-18 14:28] LABS: African American GFR (CKD) >90 (>60 ml/min/1.73 sqM); Anion Gap 6 mmol/L; Blood Urea Nitrogen 10 mg/dL (7-17); Calcium 7.5 mg/dL (8.4-10.2); Carbon Dioxide 21 mmol/L (22-30); Chloride 111 mmol/L (98-107); Glucose 132 mg/dL (74-99); Non-African American GFR(CKD) 84 (>60 ml/min/1.73 sqM); Potassium 3.3 mmol/L (3.5-5.1); Sodium 138 mmol/L (137-145)
[2021-08-18] MEDS ORDERED: POTASSIUM CHLORIDE ER 20 MEQ TAB.ER PO STA (16:19)
[2021-08-18] MEDS: IBUPROFEN 400 MG TAB PO PRN ×2 (16:20→23:51)
[2021-08-18 16:44] LABS: Glucose,Whole Blood 153 mg/dL (70-110)
[2021-08-18] MEDS: ATORVASTATIN 80 MG TAB PO SCH (20:09)
[2021-08-18] MEDS: LEVOTHYROXINE 50 MCG TAB PO SCH (20:09)
[2021-08-18 21:09] LABS: Glucose,Whole Blood 158 mg/dL (70-110)
--- NOTE | 2021-08-18 23:43 | P.CONS ---
History of Present Illness - Reason for Consult Consult date: 08/18/21 ESBL E. coli UTI Requesting physician: Ulysses Bartlett - Chief Complaint Fever and weakness x few days - History of Present Illness Patient is 86-year female presenting the hospital 3 days ago for evaluation of nausea vomiting and fever and this patient symptom apparently has been going on for a day or 2 before presentation to the hospital this patient was recently undergoing rehab at the local senior living after the patient did have a pelvic fracture there is no clear documentation of the patient having any Richard catheter during her hospital stay or at the senior living, patient daughter did mention the patient was having some dry heaving and diarrhea and apparently has been treated in the senior living for UTI however the patient not sure about the name of that antibiotic, patient on presentation to the hospital did have a fever of 101.5 F patient did have a white count of 15.7 with a left shift he did have a positive UA COVID influenza testing was negative patient did have a chest x-ray no active cardiopulmonary disease patient was treated with Rocephin however the patient blood and urine culture has been finalized with ESBL E. coli hence infectious disease was consulted for further management of antibiotic therapy patient was started on Invanz 1 g daily after discussion of the case with me by the medical team Review of Systems Positive point has been mentioned in the HPI rest of the systems are negative Past Medical History Past Medical History: Diabetes Mellitus, Hypertension, Thyroid Disorder Additional Past Medical History / Comment(s): POOR HISTORIAN. 06/11 pt states she remembers being told as a kid that she had a heart murmur History of Any Multi-Drug Resistant Organisms: ESBL Year Discovered:: 08/15/21 MDRO Source:: ESBL CATH URINE Past Surgical History: Cholecystectomy, Orthopedic Surgery Additional Past Surgical History / Comment(s): POOR HISTORIAN Past Anesthesia/Blood Transfusion Reactions: No Reported Reaction Past Psychological History: No Psychological Hx Reported Smoking Status: Never smoker Past Alcohol Use History: Daily Past Drug Use History: None Reported - Past Family History Mother Family Medical History: Cancer Medications and Allergies Home Medications Medication Instructions Recorded Confirmed Type Aspirin EC [Ecotrin Low Dose] 81 mg PO DAILY 06/08/21 08/15/21 History Atorvastatin Calcium [Lipitor] 80 mg PO HS 06/08/21 08/15/21 History Cholecalciferol [Vitamin D3 (25 25 mcg PO DAILY 06/08/21 08/15/21 History Mcg = 1000 Iu)] DULoxetine HCL [Cymbalta] 30 mg PO DAILY 06/08/21 08/15/21 History Levothyroxine Sodium [Synthroid] 50 mcg PO HS 06/08/21 08/15/21 History Lisinopril-Hctz 20-25 mg 1 tab PO DIRECTED 06/08/21 08/15/21 History [Zestoretic 20-25] Metoprolol Tartrate [Lopressor] 50 mg PO BID 06/08/21 08/15/21 History Multivitamins, Thera [Multivitamin 1 tab PO DAILY 06/08/21 08/15/21 History (formulary)] [place]-3 Fatty Acids/Fish Oil [Fish 1 cap PO HS 06/08/21 08/15/21 History Oil 1,000 mg Softgel] Pioglitazone [Actos] 45 mg PO DAILY 06/08/21 08/15/21 History Raloxifene HCl 60 mg PO DAILY 06/08/21 08/15/21 History glipiZIDE [Glucotrol] 10 mg PO DAILY 06/08/21 08/15/21 History Diphenoxylate HCl/Atropine 1 tab PO TID PRN #9 tab 06/14/21 08/15/21 Rx [Lomotil 2.5-0.025 mg Tablet] Calcium Carbonate [Calcium] 600 mg PO DAILY 08/15/21 08/15/21 History Enoxaparin [Lovenox] 40 mg SQ DAILY 08/15/21 08/15/21 History Allergies Allergy/AdvReac Type Severity Reaction Status Date / Time No Known Allergies Allergy Verified 08/15/21 19:37 Physical Exam Vitals: Vital Signs Temp Pulse Resp BP BP BP BP 08/18/21 07:40 98 F 76 15 137/75 08/18/21 02:20 98.1 F 65 18 127/72 08/17/21 20:10 99.2 F 72 17 117/82 08/17/21 20:00 72 18 08/17/21 14:31 98.3 F 76 16 149/65 134/61 135/52 Pulse Ox 08/18/21 07:40 99 08/18/21 02:20 99 08/17/21 20:10 98 08/17/21 20:00 08/17/21 14:31 96 Intake and Output 08/17/21 08/18/21 08/18/21 22:59 06:59 14:59 Intake Total 50 Balance 50 Intake: Intake, IV Titration 50 Amount cefTRIAXone 2 gm In 50 Sodium Chloride 0.9% 50 ml @ 100 mls/hr IVPB Q24H [facility] Rx#:[id number] Other: Voiding Method Bedside Commode Bedside Commode Diaper Diaper Incontinent Incontinent # Voids 1 1 1 Weight 59.874 kg GENERAL DESCRIPTION: An elderly female lying in bed, no distress. No tachypnea or accessory muscle of respiration use. HEENT: Shows Pallor , no scleral icterus. Oral mucous membrane is dry. No pharyngeal erythema or thrush NECK: Trachea central, no thyromegaly. LUNGS: Unlabored breathing. Clear to auscultation anteriorly. No wheeze or crackle. HEART: S1, S2, regular rate and rhythm. No loud murmur ABDOMEN: Soft, no tenderness , guarding or rigidity, no organomegaly EXTREMITIES: No edema of feet. SKIN: No rash, no masses palpable. NEUROLOGICAL: The patient is awake, alert, oriented x3, mood and affect normal. Results CBC & Chem 7: 08/18/21 13:05 08/18/21 13:05 Labs: Abnormal Lab Results - Last 24 Hours (Table) 08/17/21 08/17/21 08/18/21 Range/Units 16:47 20:27 07:10 POC Glucose (mg/dL) 179 H 173 H 116 H (70-110) mg/dL 08/18/21 Range/Units 11:47 POC Glucose (mg/dL) 149 H (70-110) mg/dL Microbiology - Last 24 Hours (Table) 08/15/21 17:50 Blood Culture Gram Stain - Final Blood Blood Culture - Final Escherichia coli 08/15/21 20:06 Urine Culture - Final Urine,Catheterized Escherichia coli 08/15/21 18:05 Blood Culture - Preliminary Blood No Growth after 48 hours Assessment and Plan (1) Positive blood culture Current Visit: Yes Status: Acute Code(s): R78.81 - BACTEREMIA SNOMED Code(s): 552075727 Plan: 1patient presented to hospital with sepsis about 3 days ago in this patient who did have a fever elevated white count source likely urine has appeared to have significantly positive UA. 2patient with ESBL E. coli bacteremia source likely urinary with urine growing the same pathogen. 3we will obtain ultrasound of the kidneys and bladder to make sure no evidence of any obstructive uropathy or abscess. 4patient to continue with Invanz 1 g daily patient will need midline and antibiotic on discharge total duration of antibiotics will be 2 weeks. We will follow on clinical condition and cultures to further adjust medication if needed Thank you for this consultation will follow this patient along with you Time with Patient: Greater than 30
[2021-08-19 07:02] LABS: Glucose,Whole Blood 101 mg/dL (70-110)
[2021-08-19] MEDS: ASPIRIN 81 MG PO SCH (07:22)
[2021-08-19] MEDS: ERTAPENEM 1 GM in SODIUM CHLORIDE 0.9% 50 ML IVPB SCH (07:23)
[2021-08-19] MEDS: HEPARIN SODIUM,PORCINE/PF 5,000 UNIT/0.5 ML SYRINGE SQ SCH ×3 (07:23→23:04)
[2021-08-19] MEDS: PANTOPRAZOLE 40 MG/10 ML VIAL IV SCH (07:23)
[2021-08-19] MEDS: METOPROLOL TARTRATE 50 MG TAB PO SCH ×2 (07:23→20:21)
[2021-08-19 10:14] LABS: Basophils # (A) 0.04 X 10*3/uL (0.00-0.10); Basophils % (A) 0.5 %; Eosinophils # (A) 0.28 X 10*3/uL (0.04-0.35); Eosinophils % (A) 3.5 %; HCT 26.4 % (37.2-46.3); HGB 8.3 g/dL (12.0-15.0); Immature Grans, Automated 0.9 %; Lymphocytes # (A) 1.48 X 10*3/uL (0.90-5.00); Lymphocytes % (A) 18.4 %; MCH 29.5 pg (27.0-32.0); MCHC 31.4 g/dL (32.0-37.0); Mean Platelet Volume 10.1 fL (9.5-12.2); Monocytes # (A) 0.75 X 10*3/uL (0.20-1.00); Monocytes % (A) 9.3 %; NRBC Per 100 WBC 0 /100 WBCS (0.0-0.0); Neutrophils # (A) 5.44 X 10*3/uL (1.80-7.70); Neutrophils % (A) 67.4 %; Platelet Count 351 X 10*3/uL (140-440); RBC 2.81 X 10*6/uL (4.10-5.20); RDW 14.7 % (11.5-14.5); WBC 8.06 X 10*3/uL (4.50-10.00)
--- NOTE | 2021-08-19 10:23 | US ---
EXAMINATION TYPE: US kidneys/renal and bladder DATE OF EXAM: 08/19/2021 COMPARISON: NONE CLINICAL HISTORY: uti and bacteremia. uti EXAM MEASUREMENTS: Right Kidney: 10.4 x 4.5 x 3.7 cm Left Kidney: 9.5 x 5.7 x 3.8 cm Right Kidney: No hydronephrosis or masses seen Left Kidney: No hydronephrosis or masses seen Bladder: Anechoic Bilateral Jets seen: no There is no evidence for hydronephrosis at this point in time. Cortical medullary differentiation is maintained. No nephrolithiasis is seen. No masses are identified. The urinary bladder is anechoic. IMPRESSION: No abnormality evident to account for patient's symptoms.
[2021-08-19 10:34] LABS: African American GFR (CKD) 94.6 (60.0-200.0); Albumin 2.2 g/dL (3.8-4.9); Albumin/Globulin Ratio 1.01 (1.60-3.17); BUN/Creat Ratio 11.81 Ratio (12.00-20.00); Blood Urea Nitrogen 7.7 mg/dL (9.0-27.0); Calcium 7.6 mg/dL (8.7-10.3); Carbon Dioxide 19.3 mmol/L (20.0-27.5); Globulin 2.2 g/dL (1.6-3.3); Magnesium 1.4 mg/dL (1.5-2.4); Non-African American GFR(CKD) 81.6 (60.0-200.0); Potassium 3.2 mmol/L (3.5-5.5); Total Bilirubin 0.2 mg/dL (0.30-1.20); Total Protein 4.4 g/dL (6.2-8.2)
[2021-08-19 11:17] LABS: Glucose,Whole Blood 100 mg/dL (70-110)
[2021-08-19] MEDS ORDERED: POTASSIUM CHLORIDE ER 20 MEQ TAB.ER PO STA (13:30)
[2021-08-19] MEDS ORDERED: POTASSIUM CHLORIDE 10 MEQ in WATER FOR INJECTION 1 100ML.BAG IVPB STA (13:30)
--- NOTE | 2021-08-19 13:34 | P.PN ---
Subjective Progress Note Date: 08/19/21 Principal diagnosis: weakness Patient still feeling the same, still with weakness. No nausea or vomiting. No fevers. No pain. Objective - Vital Signs Vital signs: Vital Signs Temp 98.0 F 08/19/21 07:47 Pulse 65 08/19/21 07:47 Resp 16 08/19/21 07:47 BP 122/70 08/19/21 07:47 Pulse Ox 99 08/19/21 07:47 FiO2 Intake & Output 08/18/21 08/19/21 08/19/21 18:59 06:59 18:59 Other: Voiding Method Bedside Commode Bedside Commode Bedside Commode Diaper Diaper Diaper Incontinent Incontinent Incontinent # Voids 2 - Exam Constitutional: No acute distress, conversant, pleasant Eyes:Anicteric sclerae, moist conjunctiva, no lid-lag, PERRLA, ENMT: Oropharynx clear, no erythema, exudates Neck: Supple, FROM, no masses, or JVD, No carotid bruits, No thyromegaly Lungs: Clear to auscultation, Clear to percussion, Normal respiratory effort, no accessory muscle use Cardiovascular: Heart regular in rate and rhythm, No murmurs, gallops, or rubs, No peripheral edema Abdominal: Soft, Nontender, no guarding, rebound or rigidity, Normoactive bowel sounds, No hepatomegaly, No splenomegaly, No palpable mass Skin: Normal temperature, tone, texture, turgor, no induration, No subcutaneous nodules, No rash, lesions, No ulcers Extremities: No digital cyanosis, No clubbing, Pedal pulses intact and symmetrical, Radial pulses intact and symmetrical, No calf tenderness Psychiatric: Alert and oriented to person, place and time, appropriate affect, intact judgement Neuro: Muscles Strength 5/5 in all 4 extremities, Sensation to light touch grossly present throughout, Cranial nerves II-XII grossly intact, no focal sensory deficits - Labs CBC & Chem 7: 08/19/21 06:00 08/19/21 06:00 Labs: Abnormal Lab Results - Last 24 Hours (Table) 08/18/21 08/18/21 08/18/21 Range/Units 13:05 13:05 16:43 RBC 2.85 L (3.80-5.40) m/uL Hgb 8.9 L (11.4-16.0) gm/dL Hct 27.5 L (34.0-46.0) % MCHC (32.0-37.0) g/dL RDW (11.5-14.5) % Immature Gran # (0.00-0.04) X 10*3/uL Potassium 3.3 L (3.5-5.1) mmol/L Chloride 111 H (98-107) mmol/L Carbon Dioxide 21 L (22-30) mmol/L Anion Gap (10.00-18.00) mmol/L BUN (9.0-27.0) mg/dL BUN/Creatinine Ratio (12.00-20.00) Ratio Glucose 132 H (74-99) mg/dL POC Glucose (mg/dL) 153 H (70-110) mg/dL Calcium 7.5 L (8.4-10.2) mg/dL Magnesium (1.5-2.4) mg/dL Total Bilirubin (0.30-1.20) mg/dL Total Protein (6.2-8.2) g/dL Albumin (3.8-4.9) g/dL Albumin/Globulin Ratio (1.60-3.17) g/dL 08/18/21 08/19/21 08/19/21 Range/Units 21:08 06:00 06:00 RBC 2.81 L (3.80-5.40) m/uL Hgb 8.3 L (11.4-16.0) gm/dL Hct 26.4 L (34.0-46.0) % MCHC 31.4 L (32.0-37.0) g/dL RDW 14.7 H (11.5-14.5) % Immature Gran # 0.07 H (0.00-0.04) X 10*3/uL Potassium 3.2 L (3.5-5.1) mmol/L Chloride 113 H (98-107) mmol/L Carbon Dioxide 19.3 L (22-30) mmol/L Anion Gap 9.00 L (10.00-18.00) mmol/L BUN 7.7 L (9.0-27.0) mg/dL BUN/Creatinine Ratio 11.81 L (12.00-20.00) Ratio Glucose (74-99) mg/dL POC Glucose (mg/dL) 158 H (70-110) mg/dL Calcium 7.6 L (8.4-10.2) mg/dL Magnesium 1.4 L (1.5-2.4) mg/dL Total Bilirubin 0.20 L (0.30-1.20) mg/dL Total Protein 4.4 L (6.2-8.2) g/dL Albumin 2.2 L (3.8-4.9) g/dL Albumin/Globulin Ratio 1.01 L (1.60-3.17) g/dL Microbiology - Last 24 Hours (Table) 08/15/21 17:50 Blood Culture Gram Stain - Final Blood Blood Culture - Final Escherichia coli 08/15/21 18:05 Blood Culture - Preliminary Blood No Growth after 72 hours 08/16/21 13:30 Stool Culture - Preliminary Stool Assessment and Plan Plan: Sepsis secondary to UTI Gram negative bactermia with ESBL -D w ID, continue ertapenem -Order midline -IVFs Hypokalemia -Replace and monitor Hypomagnesemia -Replace and monitor Thrombocytosis, due to ongoing infection -Monitor for now Diarrhea -Resolved, likely sec to UTI Chronic conditions: Hypertension, hyperlipidemia, type II DM -Continue with home meds General weakness: PT/OT DVT prophylaxis -Heparin subcu CODE STATUS: Full Code Discussed with: Patient Anticipated discharge date: once outpatient antibiotics arranged Anticipated discharge place: Home
[2021-08-19] MEDS: MAGNESIUM SULFATE-D5W PMX 1 GM in DEXTROSE/WATER 1 100ML.BAG IVPB SCH ×2 (14:08→15:10)
[2021-08-19 16:50] LABS: Glucose,Whole Blood 137 mg/dL (70-110)
[2021-08-19] MEDS: IBUPROFEN 400 MG TAB PO PRN (20:20)
[2021-08-19] MEDS: LEVOTHYROXINE 50 MCG TAB PO SCH (20:21)
[2021-08-19] MEDS: ATORVASTATIN 80 MG TAB PO SCH (20:21)
[2021-08-19 20:50] LABS: Glucose,Whole Blood 131 mg/dL (70-110)
--- NOTE | 2021-08-19 22:42 | P.PN ---
Subjective Progress Note Date: 08/19/21 Principal diagnosis: ESBL E. coli UTI and bacteremia Patient is 86-year-old female presented to hospital with weakness mental status changes. And did have a fever and evidence of complicated ESBL E. coli UTI and bacteremia, patient did have ultrasound completed 08/19/2021 with no evidence of any hydronephrosis or structural abnormality. On today's evaluation on today's evaluation that is 08/19/2021 the patient is afebrile, the patient is breathing comfortably no chest pain shortness of breath or cough no abdominal pain or diarrhea Objective - Vital Signs Vital signs: Vital Signs Temp 98.0 F 08/19/21 07:47 Pulse 65 08/19/21 07:47 Resp 16 08/19/21 07:47 BP 122/70 08/19/21 07:47 Pulse Ox 99 08/19/21 07:47 FiO2 Intake & Output 08/18/21 08/19/21 08/19/21 18:59 06:59 18:59 Other: Voiding Method Bedside Commode Bedside Commode Bedside Commode Diaper Diaper Diaper Incontinent Incontinent Incontinent # Voids 2 - Exam GENERAL DESCRIPTION: An elderly female lying in bed in no distress RESPIRATORY SYSTEM: Unlabored breathing , decreased breath sounds at bases HEART: S1 S2 regular rate and rhythm , ABDOMEN: Soft , no tenderness EXTREMITIES: No edema feet - Labs CBC & Chem 7: 08/19/21 06:00 08/19/21 06:00 Labs: Abnormal Lab Results - Last 24 Hours (Table) 08/18/21 08/18/21 08/18/21 Range/Units 11:47 13:05 13:05 RBC 2.85 L (3.80-5.40) m/uL Hgb 8.9 L (11.4-16.0) gm/dL Hct 27.5 L (34.0-46.0) % MCHC (32.0-37.0) g/dL RDW (11.5-14.5) % Immature Gran # (0.00-0.04) X 10*3/uL Potassium 3.3 L (3.5-5.1) mmol/L Chloride 111 H (98-107) mmol/L Carbon Dioxide 21 L (22-30) mmol/L Glucose 132 H (74-99) mg/dL POC Glucose (mg/dL) 149 H (70-110) mg/dL Calcium 7.5 L (8.4-10.2) mg/dL 08/18/21 08/18/21 08/19/21 Range/Units 16:43 21:08 06:00 RBC 2.81 L (3.80-5.40) m/uL Hgb 8.3 L (11.4-16.0) gm/dL Hct 26.4 L (34.0-46.0) % MCHC 31.4 L (32.0-37.0) g/dL RDW 14.7 H (11.5-14.5) % Immature Gran # 0.07 H (0.00-0.04) X 10*3/uL Potassium (3.5-5.1) mmol/L Chloride (98-107) mmol/L Carbon Dioxide (22-30) mmol/L Glucose (74-99) mg/dL POC Glucose (mg/dL) 153 H 158 H (70-110) mg/dL Calcium (8.4-10.2) mg/dL Microbiology - Last 24 Hours (Table) 08/15/21 18:05 Blood Culture - Preliminary Blood No Growth after 72 hours 08/16/21 13:30 Stool Culture - Preliminary Stool 08/15/21 17:50 Blood Culture Gram Stain - Final Blood Blood Culture - Final Escherichia coli Assessment and Plan (1) Positive blood culture Current Visit: Yes Status: Acute Code(s): R78.81 - BACTEREMIA SNOMED Code(s): 909364248 Plan: 1patient presented to hospital with sepsis about 3 days ago in this patient who did have a fever elevated white count source likely urine has appeared to have significantly positive UA. 2patient with ESBL E. coli bacteremia source likely urinary with urine growing the same pathogen. 3 ultrasound of the kidneys and bladder with no evidence of any obstructive uropathy or abscess. 4patient to continue with Invanz 1 g daily patient will need midline, will be ordered for tomorrow to make sure blood culture drawn this morning are negative and hopefully can go home after getting a PICC line tomorrow and a dose of Invanz to finish a total of 2 week course of therapy Time with Patient: Less than 30
[2021-08-20 07:13] LABS: Glucose,Whole Blood 127 mg/dL (70-110)
[2021-08-20] MEDS: HEPARIN SODIUM,PORCINE/PF 5,000 UNIT/0.5 ML SYRINGE SQ SCH (08:45)
[2021-08-20] MEDS: PANTOPRAZOLE 40 MG/10 ML VIAL IV SCH (08:46)
[2021-08-20] MEDS: METOPROLOL TARTRATE 50 MG TAB PO SCH (08:46)
[2021-08-20] MEDS: ASPIRIN 81 MG PO SCH (08:46)
[2021-08-20] MEDS: ERTAPENEM 1 GM in SODIUM CHLORIDE 0.9% 50 ML IVPB SCH (09:45)
[2021-08-20 10:40] VITALS: BP 138/65; PULSE 68; RESP 14; TEMP 98
[2021-08-20 10:40] LABS: Basophils # (A) 0.07 X 10*3/uL (0.00-0.10); Basophils % (A) 0.8 %; Eosinophils # (A) 0.28 X 10*3/uL (0.04-0.35); Eosinophils % (A) 3.3 %; HCT 33.8 % (37.2-46.3); HGB 10.1 g/dL (12.0-15.0); Immature Grans, Automated 2.4 %; Lymphocytes % (A) 22.3 %; MCH 29.4 pg (27.0-32.0); MCHC 29.9 g/dL (32.0-37.0); MCV 98.3 fL (80.0-97.0); Mean Platelet Volume 10.2 fL (9.5-12.2); Monocytes % (A) 10.6 %; NRBC Per 100 WBC 0 /100 WBCS (0.0-0.0); Neutrophils # (A) 5.16 X 10*3/uL (1.80-7.70); Neutrophils % (A) 60.6 %; Platelet Count 357 X 10*3/uL (140-440); RBC 3.44 X 10*6/uL (4.10-5.20); RDW 14.8 % (11.5-14.5); WBC 8.51 X 10*3/uL (4.50-10.00)
[2021-08-20 11:29] LABS: Glucose,Whole Blood 124 mg/dL (70-110)
--- NOTE | 2021-08-20 11:50 | P.DS ---
Providers Date of admission: 08/16/21 08:14 Expected date of discharge: 08/20/21 Attending physician: Emmanuel Dgigs MD Consults: 08/18/21 10:46 Consult Physician Routine Consulting Provider: Jaxon Bermudez Consult Reason/Comments: e.coli Do you want consulting provider notified?: Yes Primary care physician: [facility] Course: 86-year-old female with a PMH of type II DM, hypertension, hyperlipidemia, recent hospitalization for fall and pubic ramus fracture, with a discharge to subacute rehab who now presented to the emergency room with complaints of diarr hea and fever. History supplemented by the daughter at the bedside. The patient reports that she began having diarrhea while at [facility] roughly 2 weeks ago. She then continued to have persistent diarrhea following discharge from [facility]. She reports no hematochezia or melena. Her diarrhea resolved but the then developed shaking chills and rigors. The daughter was concerned for possible seizure activity but states that patient was coherent and conversational the entire time with no reports of tongue bites or urinary incontinence. The patient reports ocassional dysuria without abdominal pain over the past 2-3 days. She also reports nausea without vomiting throughout the day today. Denied experiencing headache or neck pain. Denied chest pain, SOB, or cough. The patient's laboratory evaluation in the emergency room was remarkable for UA consistent with UTI, K of 3.4, and WBC count of 15.7. The paient was febrile with T max of 101.5. Chest x-ray in the emergency room was unremarkable. On admission she was diagnosed with sepsis secondary to UTI, was started on ceftriaxone. Started on IV fluids. Then it was realized that her blood cultures were positive for gram negative bacteria that turned out later to be E.coli ESBL. ID was consulted. She was switched to ertapenem. Repeat blood cx were negative. She also had ultrasound of the kidneys and bladder with no evidence of any obstructive uropathy or abscess. K and Mg were low through the admission, replacements given. She will be discharged on K and mg supplements as well. PT saw patent and was thought to be ok to be dsichargeed home with home PT. Midline placed, ID recommended IV abx for 11 more days to complete 2 weeks of therapy. She will need follow up with PCP after discharge. I discontinued glipizide as her BG was ok without it during the hospitalziation. Also will d/c HCTZ/lisinopril as BP was ok only on metoprolol. TIme for discharge 36 min Patient Condition at Discharge: Stable Plan - Discharge Summary Discharge Rx Participant: No New Discharge Prescriptions: New Ertapenem [INVanz] 1 gm IVPB DAILY 11 Days #11 each Potassium Chloride ER [K-Dur 20] 20 meq PO DAILY 30 Days #30 tab Magnesium Oxide [Mag-Ox] 250 mg PO BID 30 Days #60 tablet Continue Raloxifene HCl 60 mg PO DAILY Cholecalciferol [Vitamin D3 (25 Mcg = 1000 Iu)] 25 mcg PO DAILY Aspirin EC [Ecotrin Low Dose] 81 mg PO DAILY Levothyroxine Sodium [Synthroid] 50 mcg PO HS DULoxetine HCL [Cymbalta] 30 mg PO DAILY Atorvastatin Calcium [Lipitor] 80 mg PO HS Calcium Carbonate [Calcium] 600 mg PO DAILY [place]-3 Fatty Acids/Fish Oil [Fish Oil 1,000 mg Softgel] 1 cap PO HS Multivitamins, Thera [Multivitamin (formulary)] 1 tab PO DAILY Pioglitazone [Actos] 45 mg PO DAILY Metoprolol Tartrate [Lopressor] 50 mg PO BID Diphenoxylate HCl/Atropine [Lomotil 2.5-0.025 mg Tablet] 1 tab PO TID PRN #9 tab PRN Reason: Diarrhea Discontinued Lisinopril-Hctz 20-25 mg [Zestoretic 20-25] 1 tab PO DIRECTED glipiZIDE [Glucotrol] 10 mg PO DAILY Enoxaparin [Lovenox] 40 mg SQ DAILY Discharge Medication List Aspirin EC [Ecotrin Low Dose] 81 mg PO DAILY 06/08/21 [History] Atorvastatin Calcium [Lipitor] 80 mg PO HS 06/08/21 [History] Cholecalciferol [Vitamin D3 (25 Mcg = 1000 Iu)] 25 mcg PO DAILY 06/08/21 [History] DULoxetine HCL [Cymbalta] 30 mg PO DAILY 06/08/21 [History] Levothyroxine Sodium [Synthroid] 50 mcg PO HS 06/08/21 [History] Metoprolol Tartrate [Lopressor] 50 mg PO BID 06/08/21 [History] Multivitamins, Thera [Multivitamin (formulary)] 1 tab PO DAILY 06/08/21 [History] [place]-3 Fatty Acids/Fish Oil [Fish Oil 1,000 mg Softgel] 1 cap PO HS 06/08/21 [History] Pioglitazone [Actos] 45 mg PO DAILY 06/08/21 [History] Raloxifene HCl 60 mg PO DAILY 06/08/21 [History] Diphenoxylate HCl/Atropine [Lomotil 2.5-0.025 mg Tablet] 1 tab PO TID PRN #9 tab 06/14/21 [Rx] Calcium Carbonate [Calcium] 600 mg PO DAILY 08/15/21 [History] Ertapenem [INVanz] 1 gm IVPB DAILY 11 Days #11 each 08/20/21 [Rx] Magnesium Oxide [Mag-Ox] 250 mg PO BID 30 Days #60 tablet 08/20/21 [Rx] Potassium Chloride ER [K-Dur 20] 20 meq PO DAILY 30 Days #30 tab 08/20/21 [Rx] Follow up Appointment(s)/Referral(s): [facility], [NON-STAFF] - 1 Week Harpal Hogue DO [Primary Care Provider] - 1-2 days Jaxon Bermudez MD [STAFF PHYSICIAN] - 1 Week
[2021-08-20 12:16] LABS: Anion Gap 12.7 mmol/L (10.00-18.00); BUN/Creat Ratio 8.9 Ratio (12.00-20.00); Blood Urea Nitrogen 5.5 mg/dL (9.0-27.0); Carbon Dioxide 15.2 mmol/L (20.0-27.5); Magnesium 1.8 mg/dL (1.5-2.4); Non-African American GFR(CKD) 82.8 (60.0-200.0); Potassium 3.7 mmol/L (3.5-5.5)
== END 2021-08-20 01:58 | disposition home or self-care (01) | DRG 872 ==
LOC: EC 16:16 → 6NMEDSUR 18:50 → OBSVTOIN 08-16 08:14 → 4SSUR 08-18 04:31
PROVIDERS: ADMIT Internal Medicine; ATTEND Internal Medicine
PROC: 05HF33Z Insertion of Infusion Device into Left Cephalic Vein, Percutaneous Approach (ICD-10-PCS; principal; 2021-08-19 12:20)
DX: A41.51 Sepsis due to Escherichia coli [E. coli] (principal); E87.1 Hypo-osmolality and hyponatremia; N39.0 Urinary tract infection, site not specified; Z16.12 Extended spectrum beta lactamase (ESBL) resistance; D75.839 Thrombocytosis, unspecified; E07.9 Disorder of thyroid, unspecified; E11.9 Type 2 diabetes mellitus without complications; E78.5 Hyperlipidemia, unspecified; E87.6 Hypokalemia; I10 Essential (primary) hypertension; R13.10 Dysphagia, unspecified; Z79.82 Long term (current) use of aspirin; Z79.84 Long term (current) use of oral hypoglycemic drugs; Z79.890 Hormone replacement therapy; Z79.899 Other long term (current) drug therapy; S32.509D Unspecified fracture of unspecified pubis, subsequent encounter for fracture with routine healing; Z91.81 History of falling; Z71.3 Dietary counseling and surveillance; Z20.822 Contact with and (suspected) exposure to COVID-19
CPT/HCPCS: 36410; 36415; 71046; 76770; 76937; 80048; 80053; 81001; 82272; 83605; 83630; 83690; 83735; 83993; 84484; 85025; 85610; 85730; 87040; 87045; 87046; 87077; 87086; 87186; 87502; 87635; 93005; 96361; 96374; 96375; 99285

== ENCOUNTER → 2021-09-02 | Outpatient (CLI) | payer MEDICARE ==
--- NOTE | 2021-09-03 08:46 | XR ---
Right hand HISTORY: Pain 3 views of the right hand Bone mineralization is reduced. There is hypertrophic change, joint space loss, subchondral sclerosis at the carpometacarpal joint of the first digit. Some spurring also present at the metacarpophalange al joint of the first digit, interphalangeal joint of the first digit, joint space loss noted at the proximal interphalangeal joint fifth digit. Alignment is maintained. No fracture or dislocation. IMPRESSION: Osteopenia, osteoarthritis
== END | disposition home or self-care (01) ==
LOC: RADXRYALE 16:45
PROVIDERS: ATTEND Family Medicine
DX: M19.041 Primary osteoarthritis, right hand (principal)

== ENCOUNTER 2021-09-03 18:39 | Observation (INO) | payer MEDICARE ==
[2021-09-03] MEDS ORDERED: SODIUM CHLORIDE 0.9% 1,000 ML IV STA (19:28)
--- NOTE | 2021-09-03 19:55 | XR ---
EXAMINATION TYPE: XR chest 2V DATE OF EXAM: 09/03/2021 COMPARISON: 08/15/2021 HISTORY: Pain TECHNIQUE: FINDINGS: There is bilateral blunting of the costophrenic angles. No heart failure seen. There are no hilar masses. Mediastinum is intact. There is some osteopenia and anterior wedging of mid thoracic v ertebra. There is a mild thoracic kyphosis. Heart size is normal. IMPRESSION: There are new small bilateral pleural effusions compared to old exam. No obvious heart fa ilure. Stable thoracic compression fractures.
--- NOTE | 2021-09-03 19:58 | XR ---
EXAMINATION TYPE: XR wrist complete RT DATE OF EXAM: 09/03/2021 COMPARISON: NONE HISTORY: Pain TECHNIQUE: 4 views FINDINGS: There is narrowing and spurring at the first carpometacarpal joint. Carpal bones are intact . Radiocarpal joint is intact. No fracture seen. IMPRESSION: Moderate osteoarthritis at the first carpometacarpal joint. No fracture seen.
--- NOTE | 2021-09-03 20:00 | XR ---
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 There are fractures of the right superior and inferior pubic rami with displacement up to 1 cm. No significant change in position compared to old exam. Sacroilia c joints appear anatomic. Proximal left femur is intact. IMPRESSION: Displaced right-sided pubic rami fractures without change in position compared to the old exam. No evidence of a new fracture.
[2021-09-03 20:50] LABS: Basophils # (A) 0.1 k/uL (0-0.2); Basophils % (A) 1 %; Eosinophils # (A) 0.2 k/uL (0-0.7); Eosinophils % (A) 2 %; HCT 28.5 % (34.0-46.0); Hypochromasia Slight; Lymphocytes # (A) 1.9 k/uL (1.0-4.8); Lymphocytes % (A) 17 %; MCH 29.4 pg (25.0-35.0); MCHC 31.7 g/dL (31.0-37.0); MCV 92.6 fL (80.0-100.0); Mean Platelet Volume 7.3; Monocytes # (A) 0.9 k/uL (0-1.0); Monocytes % (A) 8 %; Neutrophils # (A) 7.8 k/uL (1.3-7.7); Neutrophils % (A) 70 %; Platelet Count 478 k/uL (150-450); RBC 3.08 m/uL (3.80-5.40); RDW 15.6 % (11.5-15.5); WBC 11.2 k/uL (3.8-10.6)
[2021-09-03 20:53] LABS: ALT 41 U/L (4-34); AST 62 U/L (14-36); African American GFR (CKD) >90 (>60 ml/min/1.73 sqM); Albumin 2.7 g/dL (3.5-5.0); Alkaline Phosphatase 159 U/L (38-126); Anion Gap 9 mmol/L; Blood Urea Nitrogen 9 mg/dL (7-17); Calcium 8.4 mg/dL (8.4-10.2); Carbon Dioxide 25 mmol/L (22-30); Chloride 102 mmol/L (98-107); Glucose 107 mg/dL (74-99); Lipase 17 U/L (23-300); Magnesium 1.6 mg/dL (1.6-2.3); Non-African American GFR(CKD) 86 (>60 ml/min/1.73 sqM); Potassium 2.8 mmol/L (3.5-5.1); Sodium 136 mmol/L (137-145); Total Bilirubin 0.6 mg/dL (0.2-1.3); Total Protein 5.9 g/dL (6.3-8.2)
--- NOTE | 2021-09-03 20:57 | ED ---
General Adult HPI - General Chief complaint: Recheck/Abnormal Lab/Rx Stated complaint: Abnormal labs Time Seen by Provider: 09/03/21 18:55 Source: patient, family, RN notes reviewed Mode of arrival: ambulatory Limitations: no limitations - History of Present Illness Initial comments: 86-year-old female presents to the emergency department accompanied by her son and daughter in law for evaluation of abnormal labs and increased weakness. Patient states she is feeling fatigued and has had a significant lack of appetite for the past few days, though family reports this has been an ongoing issue for two months. Family states the patient has been progressively weaker over the past 7-10 days. They report patient had been using a walker to ambulate, however, is no longer able to do so and is requiring full assistance to transfer into a wheelchair. States she is incontinent of urine and stool and having decreased urine output. Family reports patient has been receiving IV antibiotics at home for UTI. States they were notified by the PCP that she had several abnormal labs including low potassium, elevated liver enzymes, and decreased renal function. Additionally, family states patient had a fall from bed on Monday resulting in injury to her wrist and pelvis. Right wrist is splinted with preformed device. History of pelvis fracture in May. Has a known sacral pressure ulcer that they have had difficulty keeping clean due to frequent episodes of loose stool. Denies fever, chills, headache, dizziness, chest pain, difficulty breathing, abdominal pain, nausea, vomiting, and dysuria. - Related Data Home Medications Medication Instructions Recorded Confirmed Aspirin EC [Ecotrin Low Dose] 81 mg PO DAILY 06/08/21 09/03/21 Atorvastatin Calcium [Lipitor] 80 mg PO HS 06/08/21 09/03/21 Cholecalciferol [Vitamin D3 (25 25 mcg PO DAILY 06/08/21 09/03/21 Mcg = 1000 Iu)] DULoxetine HCL [Cymbalta] 30 mg PO DAILY 06/08/21 09/03/21 Levothyroxine Sodium [Synthroid] 50 mcg PO HS 06/08/21 09/03/21 Metoprolol Tartrate [Lopressor] 50 mg PO BID 06/08/21 09/03/21 Multivitamins, Thera [Multivitamin 1 tab PO DAILY 06/08/21 09/03/21 (formulary)] [place]-3 Fatty Acids/Fish Oil [Fish 1 cap PO HS 06/08/21 09/03/21 Oil 1,000 mg Softgel] Pioglitazone [Actos] 45 mg PO DAILY 06/08/21 09/03/21 Raloxifene HCl 60 mg PO DAILY 06/08/21 09/03/21 Calcium Carbonate [Calcium] 600 mg PO DAILY 08/15/21 09/03/21 Megestrol Acetate 400 mg PO DIRECTED 09/03/21 09/03/21 Omeprazole Magnesium [PriLOSEC OTC] 20 mg PO DAILY 09/03/21 09/03/21 Previous Rx's Medication Instructions Recorded Diphenoxylate HCl/Atropine 1 tab PO TID PRN #9 tab 06/14/21 [Lomotil 2.5-0.025 mg Tablet] Magnesium Oxide [Mag-Ox] 250 mg PO BID 30 Days #60 tablet 08/20/21 Potassium Chloride ER [K-Dur 20] 20 meq PO DAILY 30 Days #30 tab 08/20/21 Allergies Allergy/AdvReac Type Severity Reaction Status Date / Time No Known Allergies Allergy Verified 09/03/21 20:42 Review of Systems ROS Statement: Those systems with pertinent positive or pertinent negative responses have been documented in the HPI. ROS Other: All systems not noted in ROS Statement are negative. Past Medical History Past Medical History: Diabetes Mellitus, Hypertension, Thyroid Disorder Additional Past Medical History / Comment(s): POOR HISTORIAN. 06/11 pt states she remembers being told as a kid that she had a heart murmur History of Any Multi-Drug Resistant Organisms: None Reported Date of last positivie culture/infection: 08/15/21 MDRO Source:: ESBL CATH URINE Past Surgical History: Cholecystectomy, Orthopedic Surgery Additional Past Surgical History / Comment(s): POOR HISTORIAN Past Anesthesia/Blood Transfusion Reactions: No Reported Reaction Past Psychological History: No Psychological Hx Reported Smoking Status: Never smoker Past Alcohol Use History: Daily Past Drug Use History: None Reported - Past Family History Mother Family Medical History: Cancer General Exam Limitations: physical limitation (generalized weakness, wheel-chair dependent ) General appearance: alert, in no apparent distress (well-developed, frail- appearing female in no acute distress. Initial temperature 98.2, pulse 80, respirations 20, blood pressure 149/68, pulse ox 97% on room air.) Head exam: Present: atraumatic, normocephalic, normal inspection Eye exam: Present: normal appearance, PERRL, EOMI. Absent: scleral icterus, conjunctival injection, periorbital swelling, periorbital tenderness ENT exam: Present: mucous membranes dry, TM's normal bilaterally Neck exam: Present: normal inspection, full ROM. Absent: lymphadenopathy Respiratory exam: Present: normal lung sounds bilaterally. Absent: respiratory distress, wheezes, rales, rhonchi, stridor, chest wall tenderness Cardiovascular Exam: Present: regular rate, normal rhythm, systolic murmur GI/Abdominal exam: Present: soft, normal bowel sounds. Absent: distended, tenderness, guarding, rebound, rigid Right Upper Arm exam: Present: normal inspection, full ROM. Absent: tenderness, swelling Elbow exam: Present: normal inspection, full ROM. Absent: tenderness, swelling Forearm Wrist exam: Present: tenderness (mild generalized tenderness; concern fo r scaphoid fracture d/t snuffbox tenderness per family-none on exam). Absent: normal inspection (preformed splint in place upon initial evaluation; removed for assessment) Vascular: Present: normal capillary refill, radial pulse, brachial pulse. Absent: vascular compromise, Pallo Back exam: Present: tenderness (sacral tenderness around wound site ), other (pressure ulcer sacrum). Absent: normal inspection (contusion right scapula; mild tenderness, no deformity or loss of ROM), CVA tenderness (R), CVA tenderness (L), muscle spasm, vertebral tenderness, rash noted Expanded Patient oriented to: Present: person, place. Absent: time Speech: Present: fluid speech Cranial nerves: EOM's Intact: Normal, Tongue Deviation: Normal Cerebellar function: Finger to Nose: Normal Motor strength exam: RUE: 5, LUE: 5, RLE: 5, LLE: 5 Eye Response: (4) open spontaneously Motor Response: (6) obeys commands Verbal Response: (4) confused conversation Jackelyn Total: 14 Psychiatric exam: Present: normal affect Skin exam: Present: warm, dry. Absent: normal color (patient appears somewhat pale ), rash Course Vital Signs 09/03/21 09/04/21 18:42 01:06 Temperature 98.2 F Pulse Rate 80 72 Respiratory 20 18 Rate Blood Pressure 149/68 123/96 O2 Sat by Pulse 97 97 Oximetry - Reevaluation(s) Reevaluation #1: 09/03/21 22:14 Patient provided with water and is encouraged to drink for PO challenge in effort to evaluate ability to tolerate oral potassium supplementation. States she is uninterested in drinking anything but will try. Family present to encourage her but states they have had difficulty convincing her to eat or drink. 09/03/21 23:17 Approximately 250 ml urine output with placement of vargas catheter. Family reports patient has had minimal urine output today and that they had only changed one wet/soiled depends. Medical Decision Making - Medical Decision Making 86-year-old female with a past medical history of hypertension, diabetes, and recent UTI requiring hospitalization presents to the emergency department as directed by her PCP for evaluation of abnormal laboratory studies. Upon exam, patient is pale and ill appearing. She is awake and alert answering most questions appropriately. Family reports patient received her last dose of IV antibiotic today administered for a UTI. Her right wrist is splinted due to a recent fall. Xrays of the pelvis and right wrist were obtained showing no acute findings. Chest x-ray does show small bilateral pleural effusions. Laboratory studies were reviewed showing hemoglobin of 9.0 and hematocrit 28.5 which is consistent with patient's history of chronic anemia. She is found to be hypokalemic with a potassium 2.8. Liver enzymes are mildly elevated. Urinalysis remains positive for 1+ protein, trace ketones, and small amount of blood. Large leukocyte esterase is present. Patient is lacking appetite and is not tolerating oral intake therefore potassium was supplemented IV. She will be admitted to the hospital for generalized weakness and hypokalemia. A social work consult will be placed for facilitation of palliative care services. Patient family are agreeable with this plan of care. Attending: Heidi. - Lab Data Result diagrams: 09/03/21 20:29 09/03/21 20:29 Lab Results 09/03/21 09/03/21 09/03/21 Range/Units 20:29 20:29 20:29 WBC 11.2 H (3.8-10.6) k/uL RBC 3.08 L (3.80-5.40) m/uL Hgb 9.0 L (11.4-16.0) gm/dL Hct 28.5 L (34.0-46.0) % MCV 92.6 (80.0-100.0) fL MCH 29.4 (25.0-35.0) pg MCHC 31.7 (31.0-37.0) g/dL RDW 15.6 H (11.5-15.5) % Plt Count 478 H (150-450) k/uL MPV 7.3 Neutrophils % 70 % Lymphocytes % 17 % Monocytes % 8 % Eosinophils % 2 % Basophils % 1 % Neutrophils # 7.8 H (1.3-7.7) k/uL Lymphocytes # 1.9 (1.0-4.8) k/uL Monocytes # 0.9 (0-1.0) k/uL Eosinophils # 0.2 (0-0.7) k/uL Basophils # 0.1 (0-0.2) k/uL Hypochromasia Slight Sodium 136 L (137-145) mmol/L Potassium 2.8 L (3.5-5.1) mmol/L Chloride 102 (98-107) mmol/L Carbon Dioxide 25 (22-30) mmol/L Anion Gap 9 mmol/L BUN 9 (7-17) mg/dL Creatinine 0.57 (0.52-1.04) mg/dL Est GFR (CKD-EPI)AfAm >90 (>60 ml/min/1.73 sqM) Est GFR (CKD-EPI)NonAf 86 (>60 ml/min/1.73 sqM) Glucose 107 H (74-99) mg/dL Plasma Lactic Acid Ziyad (0.7-2.0) mmol/L Calcium 8.4 (8.4-10.2) mg/dL Magnesium 1.6 (1.6-2.3) mg/dL Total Bilirubin 0.6 (0.2-1.3) mg/dL AST 62 H (14-36) U/L ALT 41 H (4-34) U/L Alkaline Phosphatase 159 H (38-126) U/L Troponin I (0.000-0.034) ng/mL Total Protein 5.9 L (6.3-8.2) g/dL Albumin 2.7 L (3.5-5.0) g/dL Lipase 17 L (23-300) U/L Urine Color Yellow Urine Appearance Cloudy H (Clear) Urine pH 6.0 (5.0-8.0) Ur Specific [place] 1.021 (1.001-1.035) Urine Protein 1+ H (Negative) Urine Glucose (UA) Negative (Negative) Urine Ketones Trace H (Negative) Urine Blood Small H (Negative) Urine Nitrite Negative (Negative) Urine Bilirubin Negative (Negative) Urine Urobilinogen 2.0 (<2.0) mg/dL Ur Leukocyte Esterase Large H (Negative) Urine RBC 34 H (0-5) /hpf Urine WBC 46 H (0-5) /hpf Ur Squamous Epith Cells 7 H (0-4) /hpf Hyaline Casts 4 H (0-2) /lpf Urine Mucus Rare H (None) /hpf 09/03/21 09/03/21 Range/Units 20:29 20:29 WBC (3.8-10.6) k/uL RBC (3.80-5.40) m/uL Hgb (11.4-16.0) gm/dL Hct (34.0-46.0) % MCV (80.0-100.0) fL MCH (25.0-35.0) pg MCHC (31.0-37.0) g/dL RDW (11.5-15.5) % Plt Count (150-450) k/uL MPV Neutrophils % % Lymphocytes % % Monocytes % % Eosinophils % % Basophils % % Neutrophils # (1.3-7.7) k/uL Lymphocytes # (1.0-4.8) k/uL Monocytes # (0-1.0) k/uL Eosinophils # (0-0.7) k/uL Basophils # (0-0.2) k/uL Hypochromasia Sodium (137-145) mmol/L Potassium (3.5-5.1) mmol/L Chloride (98-107) mmol/L Carbon Dioxide (22-30) mmol/L Anion Gap mmol/L BUN (7-17) mg/dL Creatinine (0.52-1.04) mg/dL Est GFR (CKD-EPI)AfAm (>60 ml/min/1.73 sqM) Est GFR (CKD-EPI)NonAf (>60 ml/min/1.73 sqM) Glucose (74-99) mg/dL Plasma Lactic Acid Ziyad 1.0 (0.7-2.0) mmol/L Calcium (8.4-10.2) mg/dL Magnesium (1.6-2.3) mg/dL Total Bilirubin (0.2-1.3) mg/dL AST (14-36) U/L ALT (4-34) U/L Alkaline Phosphatase (38-126) U/L Troponin I 0.015 (0.000-0.034) ng/mL Total Protein (6.3-8.2) g/dL Albumin (3.5-5.0) g/dL Lipase (23-300) U/L Urine Color Urine Appearance (Clear) Urine pH (5.0-8.0) Ur Specific [place] (1.001-1.035) Urine Protein (Negative) Urine Glucose (UA) (Negative) Urine Ketones (Negative) Urine Blood (Negative) Urine Nitrite (Negative) Urine Bilirubin (Negative) Urine Urobilinogen (<2.0) mg/dL Ur Leukocyte Esterase (Negative) Urine RBC (0-5) /hpf Urine WBC (0-5) /hpf Ur Squamous Epith Cells (0-4) /hpf Hyaline Casts (0-2) /lpf Urine Mucus (None) /hpf - EKG Data EKG shows normal: sinus rhythm Rate: normal EKG Comments: EKG obtained at 2318 shows sinus rhythm with occasional supraventricular edith ature complexes and nonspecific ST and T wave abnormality. Ventricular rate 69, NV interval 148, QRS duration 89, QT/QTC 358/335. Interpretation borderline ECG. - Radiology Data Radiology results: report reviewed, image reviewed Two-view chest x-ray was obtained. Report was reviewed in its entirety. Impression per Dr. Mcneal is there are new small bilateral pleural effusions compared to old exam. No obvious heart failure. Stable thoracic compression fractures. X-ray of the right wrist was obtained. Report was reviewed in its entirety. Impression per Dr. 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 No fracture seen. X-ray of the pelvis was obtained. Report was reviewed in its entirety. Impression per Dr. Mcneal is displaced right-sided pubic rami fractures without change in position compared to old exam. No evidence of a new fracture. Disposition Clinical Impression: Hypokalemia, Appetite loss, Generalized weakness Disposition: ADMITTED IP TO THIS [facility] Condition: Serious Decision Date: 09/03/21 Decision Time: 23:57
[2021-09-03] MEDS ORDERED: POTASSIUM CHLORIDE 10 MEQ in WATER FOR INJECTION 1 100ML.BAG IVPB STA (21:19)
[2021-09-03 23:02] LABS: Appearance,Urine Cloudy (Clear); Bilirubin,Urine Negative (Negative); Blood,Urine Small (Negative); Color,Urine Yellow; Glucose,Urine (UA) Negative (Negative); Hyaline Casts,Urine 4 /lpf (0-2); Ketones,Urine Trace (Negative); Leukocyte Esterase,Urine Large (Negative); Mucus,Urine Rare /hpf; Nitrite,Urine Negative (Negative); Protein,Urine 1+ (Negative); RBC,Urine 34 /hpf (0-5); Specific Gravity,Urine 1.021 (1.001-1.035); Squamous Epithelial Cell,Urine 7 /hpf (0-4); WBC,Urine 46 /hpf (0-5)
[2021-09-04] MEDS ORDERED: ONDANSETRON 4 MG/2 ML VIAL IVP PRN (02:03)
[2021-09-04] MEDS ORDERED: HYDROmorphone 0.5 MG/0.5 ML SYRINGE IVP PRN (02:03)
[2021-09-04] MEDS ORDERED: NALOXONE 0.4 MG/ML 1 ML VIAL IV PRN (02:03)
[2021-09-04] MEDS ORDERED: traMADol 50 MG TAB PO PRN (02:03)
[2021-09-04] MEDS ORDERED: ACETAMINOPHEN TAB 325 MG TAB PO PRN (02:03)
[2021-09-04] MEDS: SODIUM CHLORIDE 0.9% 1,000 ML IV SCH ×2 (02:53→11:11)
[2021-09-04] MEDS ORDERED: POTASSIUM CHLORIDE ER 20 MEQ TAB.ER PO STA (03:51)
--- NOTE | 2021-09-04 04:00 | P.HPIM ---
History of Present Illness H&P Date: 09/04/21 Chief Complaint: Abnormal labs 86-year-old female with diabetes mellitus, hypertension Patient was sent into the hospital for evaluation upon recommendations of her PCP due to hypokalemia. Patient was found to have low potassium upon op patient workup done post hospital stay. She was discharged from the hospital about 2 weeks ago where she was diagnosed for UTI secondary to ESBL, she was treated with antibiotic while inpatient and discharged on ertapenem which she finished on August 31. Patient reports chronic diarrhea nonbloody. She also reports generalized weakness which has been progressive and she is having difficulties standing up and walking. She reports multiple falls recently resulting in fracture of her right hip about 3 months ago in another recent fall resulting in severe pain in her right hand no fractures identified she is currently in right hand splint. She denies any head injury denies any chest pain trouble breathing fevers or chills denies any hematuria denies any GI bleeding. She denies any recent changes in her medications. However she's been having some concerns regarding her safety and well-being especially with her difficulty ambulating and standing up she was hoping for social worker aide evaluation and possible placement she was recently at the alf. In the ED she was found to have hypokalemia 2.8 and chronic anemia of 9 Review of Systems Pertinent positives as noted in HPI. All other systems were reviewed and are negative Past Medical History Past Medical History: Diabetes Mellitus, Hypertension, Thyroid Disorder Additional Past Medical History / Comment(s): POOR HISTORIAN. 06/11 pt states she remembers being told as a kid that she had a heart murmur History of Any Multi-Drug Resistant Organisms: None Reported Date of last positivie culture/infection: 08/15/21 MDRO Source:: ESBL CATH URINE Past Surgical History: Cholecystectomy, Orthopedic Surgery Additional Past Surgical History / Comment(s): POOR HISTORIAN Past Anesthesia/Blood Transfusion Reactions: No Reported Reaction Past Psychological History: No Psychological Hx Reported Smoking Status: Never smoker Past Alcohol Use History: Daily Past Drug Use History: None Reported - Past Family History Mother Family Medical History: Cancer Medications and Allergies Home Medications Medication Instructions Recorded Confirmed Type Aspirin EC [Ecotrin Low Dose] 81 mg PO DAILY 06/08/21 09/03/21 History Atorvastatin Calcium [Lipitor] 80 mg PO HS 06/08/21 09/03/21 History Cholecalciferol [Vitamin D3 (25 25 mcg PO DAILY 06/08/21 09/03/21 History Mcg = 1000 Iu)] DULoxetine HCL [Cymbalta] 30 mg PO DAILY 06/08/21 09/03/21 History Levothyroxine Sodium [Synthroid] 50 mcg PO HS 06/08/21 09/03/21 History Metoprolol Tartrate [Lopressor] 50 mg PO BID 06/08/21 09/03/21 History Multivitamins, Thera [Multivitamin 1 tab PO DAILY 06/08/21 09/03/21 History (formulary)] [place]-3 Fatty Acids/Fish Oil [Fish 1 cap PO HS 06/08/21 09/03/21 History Oil 1,000 mg Softgel] Pioglitazone [Actos] 45 mg PO DAILY 06/08/21 09/03/21 History Raloxifene HCl 60 mg PO DAILY 06/08/21 09/03/21 History Diphenoxylate HCl/Atropine 1 tab PO TID PRN #9 tab 06/14/21 09/03/21 Rx [Lomotil 2.5-0.025 mg Tablet] Calcium Carbonate [Calcium] 600 mg PO DAILY 08/15/21 09/03/21 History Magnesium Oxide [Mag-Ox] 250 mg PO BID 30 Days #60 tablet 08/20/21 09/03/21 Rx Potassium Chloride ER [K-Dur 20] 20 meq PO DAILY 30 Days #30 tab 08/20/21 09/03/21 Rx Megestrol Acetate 400 mg PO DIRECTED 09/03/21 09/03/21 History Omeprazole Magnesium [PriLOSEC OTC] 20 mg PO DAILY 09/03/21 09/03/21 History Allergies Allergy/AdvReac Type Severity Reaction Status Date / Time No Known Allergies Allergy Verified 09/03/21 20:42 Physical Exam Vitals: Vital Signs Temp Pulse Resp BP Pulse Ox 09/04/21 01:06 72 18 123/96 97 09/03/21 18:42 98.2 F 80 20 149/68 97 Intake and Output 09/03/21 09/03/21 09/04/21 14:59 22:59 06:59 Other: Weight 65.771 kg Constitutional: No acute distress, conversant, pleasant Eyes: Anicteric sclerae, moist conjunctiva, Pupils equal round reactive to light ENMT: NC/AT Oropharynx clear, no erythema, or exudates Neck: Supple, no masses, or JVD No carotid bruits No thyromegaly Lungs: Clear to auscultation Clear to percussion Normal respiratory effort, no accessory muscle use Cardiovascular: Heart regular in rate and rhythm, Systolic murmurs, no gallops, or rubs No peripheral edema Abdominal: Soft Nontender, no guarding, rebound or rigidity Abdomen moving with respiration Normoactive bowel sounds No hepatomegaly, No splenomegaly No palpable mass No abdominal wall hernia noted Skin: Normal temperature, tone, texture, turgor No induration No subcutaneous nodules No rash, lesions No ulcers Extremities: No digital cyanosis No clubbing Pedal pulses intact and symmetrical Radial pulses palpable in the left wrist, right handed and splint capillary refill is immediate No calf tenderness Psychiatric: Alert and oriented to person, place Appropriate affect fair judgement Neuro Muscles Strength 4/5 in all 4 extremities Sensation to light touch grossly present throughout Cranial nerves II-XII grossly intact No focal sensory deficits Lymphatics: no palpable cervical or supraclavicular , or inguinal lymph nodes Results CBC & Chem 7: 09/03/21 20:29 09/03/21 20:29 Labs: Abnormal Lab Results - Last 24 Hours (Table) 09/03/21 09/03/21 09/03/21 Range/Units 20:29 20:29 20:29 WBC 11.2 H (3.8-10.6) k/uL RBC 3.08 L (3.80-5.40) m/uL Hgb 9.0 L (11.4-16.0) gm/dL Hct 28.5 L (34.0-46.0) % RDW 15.6 H (11.5-15.5) % Plt Count 478 H (150-450) k/uL Neutrophils # 7.8 H (1.3-7.7) k/uL Sodium 136 L (137-145) mmol/L Potassium 2.8 L (3.5-5.1) mmol/L Glucose 107 H (74-99) mg/dL AST 62 H (14-36) U/L ALT 41 H (4-34) U/L Alkaline Phosphatase 159 H (38-126) U/L Total Protein 5.9 L (6.3-8.2) g/dL Albumin 2.7 L (3.5-5.0) g/dL Lipase 17 L (23-300) U/L Urine Appearance Cloudy H (Clear) Urine Protein 1+ H (Negative) Urine Ketones Trace H (Negative) Urine Blood Small H (Negative) Ur Leukocyte Esterase Large H (Negative) Urine RBC 34 H (0-5) /hpf Urine WBC 46 H (0-5) /hpf Ur Squamous Epith Cells 7 H (0-4) /hpf Hyaline Casts 4 H (0-2) /lpf Urine Mucus Rare H (None) /hpf Assessment and Plan Assessment: Severe hypokalemia with generalized weakness and difficulty ambulating Patient currently not on any diuretics Initiate by mouth and IV potassium replacement therapy Follow-up levels in the morning Fall precautions Check magnesium in the morning Recent urinary tract infection secondary to ESBL patient finished a course of antibiotics on August 31 (ertapenem) Currently asymptomatic Chronic diarrhea Check C. diff Denies any GI bleeding Chronic stable anemia Diabetes mellitus insulin sliding scale Hypertension resume metoprolol Full code DVT prophylaxis heparin subcu 3 times a day
[2021-09-04] MEDS: POTASSIUM CHLORIDE 10 MEQ in WATER FOR INJECTION 1 100ML.BAG IVPB SCH ×4 (07:16→10:55)
[2021-09-04] MEDS ORDERED: HEPARIN SODIUM,PORCINE/PF 5,000 UNIT/0.5 ML SYRINGE SQ SCH (08:00)
[2021-09-04] MEDS: INSULIN ASPART (NovoLOG) 100 UNIT/ML VIAL SQ SCH ×2 (08:03→14:00)
[2021-09-04 08:09] VITALS: BP 158/78; PULSE 84; RESP 18; TEMP 97.4
[2021-09-04] MEDS ORDERED: DIPHENOX-ATROP 2.5-0.025 MG 1 EACH TAB PO PRN (09:00)
[2021-09-04] MEDS ORDERED: DULoxetine HCL 30 MG CAPSULE.DR PO SCH (09:00)
[2021-09-04] MEDS ORDERED: ASPIRIN 81 MG PO SCH (09:00)
[2021-09-04] MEDS ORDERED: RALOXIFENE 60 MG TAB PO SCH (09:00)
[2021-09-04] MEDS ORDERED: METOPROLOL TARTRATE 50 MG TAB PO SCH (09:00)
[2021-09-04 11:23] LABS: Glucose,Whole Blood 111 mg/dL (70-110)
--- NOTE | 2021-09-04 11:35 | P.DS ---
Providers Date of admission: 09/04/21 02:24 Expected date of discharge: 09/04/21 Attending physician: Brian Bell MD Primary care physician: Harpal Hogue Hospital Course: Severe hypokalemia with generalized weakness and difficulty ambulating Chronic diarrhea Chronic stable anemia Diabetes mellitus Hypertension 86-year-old female with diabetes mellitus, hypertension was sent into the hospital for evaluation upon recommendations of her PCP due to hypokalemia. Patient was found to have low potassium upon op patient workup done post hospital stay. She was discharged from the hospital about 2 weeks ago where she was diagnosed for UTI secondary to ESBL, she was treated with antibiotic while inpatient and discharged on ertapenem which she finished on August 31. In the ED she was found to be afebrile, 150/78, heart rate 84, 98% on room air. CBC showed mild leukocytosis to 11.2, chronic anemia down to 9.0, thrombocytosis of 478. Chemistry showed to have hypokalemia 2.8. Liver function tests demonstrated a mildly elevated liver enzymes of AST, ALT, alkaline phosphatase of 62, 41, 159. Troponin was 0.015. Today, patient and her family requested that she be discharged home with palliative care provided at home. Patient continues to have difficulty ambulating due to generalized weakness for multiple hospitalizations as well as metabolic derangements and would qualify for a Mehul lift as well as hospital bed. Patient and family were counseled on electrolyte replacement including tablets as well as Pedialyte daily. Patient should have her blood work rechecked early next week. Gen: awake, alert HEENT: normocephalic, atraumatic, good hearing acuity, moist mucous membranes Resp: good air exchange, breathing comfortably with no accessory muscle use CVS: good distal perfusion x 4, GI: soft, NTTP, ND : no SPT, no CVAT, vargas catheter not present MSK: no pitting edema, no clubbing Neuro: non-focal, moving all extremities Psych: cooperative, euthymic mood Patient Condition at Discharge: Good Plan - Discharge Summary Discharge Rx Participant: Yes New Discharge Prescriptions: New RX: Ferrous Sulfate [Feosol] 325 mg PO DAILY #30 tab Continue RX: Raloxifene HCl 60 mg PO DAILY RX: Cholecalciferol [Vitamin D3 (25 Mcg = 1000 Iu)] 25 mcg PO DAILY RX: Aspirin EC [Ecotrin Low Dose] 81 mg PO DAILY RX: Levothyroxine Sodium [Synthroid] 50 mcg PO HS RX: DULoxetine HCL [Cymbalta] 30 mg PO DAILY RX: Atorvastatin Calcium [Lipitor] 80 mg PO HS RX: Calcium Carbonate [Calcium] 600 mg PO DAILY RX: Potassium Chloride ER [K-Dur 20] 20 meq PO DAILY 30 Days #30 tab RX: Magnesium Oxide [Mag-Ox] 250 mg PO BID 30 Days #60 tablet RX: Omeprazole Magnesium [PriLOSEC OTC] 20 mg PO DAILY RX: Megestrol Acetate 400 mg PO DIRECTED RX: [place]-3 Fatty Acids/Fish Oil [Fish Oil 1,000 mg Softgel] 1 cap PO HS RX: Multivitamins, Thera [Multivitamin (formulary)] 1 tab PO DAILY RX: Pioglitazone [Actos] 45 mg PO DAILY RX: Metoprolol Tartrate [Lopressor] 50 mg PO BID RX: Diphenoxylate HCl/Atropine [Lomotil 2.5-0.025 mg Tablet] 1 tab PO TID PRN #9 tab PRN Reason: Diarrhea Discharge Medication List RX: Aspirin EC [Ecotrin Low Dose] 81 mg PO DAILY 06/08/21 [History] RX: Atorvastatin Calcium [Lipitor] 80 mg PO HS 06/08/21 [History] RX: Cholecalciferol [Vitamin D3 (25 Mcg = 1000 Iu)] 25 mcg PO DAILY 06/08/21 [History] RX: DULoxetine HCL [Cymbalta] 30 mg PO DAILY 06/08/21 [History] RX: Levothyroxine Sodium [Synthroid] 50 mcg PO HS 06/08/21 [History] RX: Metoprolol Tartrate [Lopressor] 50 mg PO BID 06/08/21 [History] RX: Multivitamins, Thera [Multivitamin (formulary)] 1 tab PO DAILY 06/08/21 [History] RX: [place]-3 Fatty Acids/Fish Oil [Fish Oil 1,000 mg Softgel] 1 cap PO HS 06/08/21 [History] RX: Pioglitazone [Actos] 45 mg PO DAILY 06/08/21 [History] RX: Raloxifene HCl 60 mg PO DAILY 06/08/21 [History] RX: Diphenoxylate HCl/Atropine [Lomotil 2.5-0.025 mg Tablet] 1 tab PO TID PRN #9 tab 06/14/21 [Rx] RX: Calcium Carbonate [Calcium] 600 mg PO DAILY 08/15/21 [History] RX: Magnesium Oxide [Mag-Ox] 250 mg PO BID 30 Days #60 tablet 08/20/21 [Rx] RX: Potassium Chloride ER [K-Dur 20] 20 meq PO DAILY 30 Days #30 tab 08/20/21 [Rx] RX: Megestrol Acetate 400 mg PO DIRECTED 09/03/21 [History] RX: Omeprazole Magnesium [PriLOSEC OTC] 20 mg PO DAILY 09/03/21 [History] RX: Ferrous Sulfate [Feosol] 325 mg PO DAILY #30 tab 09/04/21 [Rx] Follow up Appointment(s)/Referral(s): Harpal Hogue DO [Primary Care Provider] - 1-2 days Patient Instructions/Handouts: Hypokalemia (DC) Activity/Diet/Wound Care/Special Instructions: recheck potassium monday Discharge Disposition: HOME WITH HOME HEALTH SERVICES
[2021-09-04 12:35] LABS: Anion Gap 15.3 mmol/L (10.00-18.00); BUN/Creat Ratio 14.8 Ratio (12.00-20.00); Blood Urea Nitrogen 7.4 mg/dL (9.0-27.0); Calcium 8.1 mg/dL (8.7-10.3); Carbon Dioxide 19.7 mmol/L (20.0-27.5); Magnesium 1.6 mg/dL (1.5-2.4); Non-African American GFR(CKD) 88.9 (60.0-200.0)
[2021-09-04] MEDS ORDERED: ATORVASTATIN 80 MG TAB PO SCH (21:00)
[2021-09-04] MEDS ORDERED: LEVOTHYROXINE 50 MCG TAB PO SCH (21:00)
== END 2021-09-04 14:35 | disposition home health service (06) ==
LOC: EC 18:39 → 4SSUR 09-04 02:24
PROVIDERS: ADMIT Internal Medicine; ATTEND Internal Medicine
DX: E87.6 Hypokalemia (principal); M18.9 Osteoarthritis of first carpometacarpal joint, unspecified; I10 Essential (primary) hypertension; E07.9 Disorder of thyroid, unspecified; J90 Pleural effusion, not elsewhere classified; L89.159 Pressure ulcer of sacral region, unspecified stage; E11.9 Type 2 diabetes mellitus without complications; R32 Unspecified urinary incontinence; R15.9 Full incontinence of feces; D64.9 Anemia, unspecified; R63.0 Anorexia; R74.8 Abnormal levels of other serum enzymes; S32.591D Other specified fracture of right pubis, subsequent encounter for fracture with routine healing; S22.009D Unspecified fracture of unspecified thoracic vertebra, subsequent encounter for fracture with routine healing; K52.9 Noninfective gastroenteritis and colitis, unspecified; D75.839 Thrombocytosis, unspecified; D72.829 Elevated white blood cell count, unspecified; R26.2 Difficulty in walking, not elsewhere classified; W06.XXXA Fall from bed, initial encounter; Z79.82 Long term (current) use of aspirin; Z79.890 Hormone replacement therapy; Z79.84 Long term (current) use of oral hypoglycemic drugs; Z79.899 Other long term (current) drug therapy; Z16.12 Extended spectrum beta lactamase (ESBL) resistance; Z99.3 Dependence on wheelchair; Z91.81 History of falling; Z90.49 Acquired absence of other specified parts of digestive tract; Z96.641 Presence of right artificial hip joint; Z98.890 Other specified postprocedural states; Z51.5 Encounter for palliative care; Z87.440 Personal history of urinary (tract) infections; Z80.9 Family history of malignant neoplasm, unspecified
CPT/HCPCS: 96361 ×2; 96366; 96372; 96365; 99284; 36415; 93005; 80053; 80048; 83605; 83690; 83735 ×2; 84484; 85025; 81001; 87040; 87086; 72170; 73110; 71046; G0378; J3480 ×2; J1644